=== PATIENT | male | born 1965 | race Caucasian/White ===

== ENCOUNTER 2020-11-04 09:22 | Inpatient (IN) ==
--- NOTE | 2020-11-04 09:37 | Emergency Department Note ---
Impression & Plan Multifocal pneumonia, Acute hypoxemic respiratory failure, COVID-19 ED Provider Note NAME: JOSHUA [id number] OSMIN AGE: 55 SEX: M : 1965 ARRIVES VIA: Ambulance INFORMANT: Patient, ED PROVIDER(S): Casimiro Ladd MD Chief Complaint: Shortness of breath HPI: Patient does present with worsening shortness of breath. Patient states that he has had symptoms since last Friday and recently tested positive this pa st Friday. The patient is febrile tachycardic and does have an increased respiratory rate. The patient has complained of a mild productive cough. Patient is a former smoker. Patient states the symptoms are worse with walking and the cough sometimes gets worse if he lays flat or bends over. The patient is a prisoner at [facility]. The patient is currently on a nonrebreather. She does not complain of any nausea but has had decreased p.o. intake. Patient is a full code. ROS: See HPI for pertinent positives and negatives. A total of 10 systems were reviewed and otherwise negative. Past medical history: See below Surgical history: See below Social history: See below Physical Exam: GENERAL: Mild distress, nonrebreather in place. EYE EXAM: Normal conjunctiva. PERRL, no anisocoria and EOM's grossly intact w/o pain. NECK: Supple, no nuchal rigidity, no adenopathy, non-tender. No signs of meningismus. LUNGS: Crackles throughout, tachypnea noted. HEART: Tachycardic and regular, no MRG. ABDOMEN: Abdomen soft, reducible umbilical hernia present, normo-active bowel sounds, no masses, no rebound or guarding. BACK: No CVA TTP. SKIN: No rashes and no bruising. UPPER EXTREMITIES: Upper extremities are grossly normal. LOWER EXTREMITIES: Grossly normal, no edema. No Homans' sign bilaterally. NEURO EXAM: A&O x3, cranial nerves II-XII grossly intact, normal speech, moves a ll 4 extremities on command w/o issue. Differential diagnoses: Reactive airway disease, pneumonia, pneumothorax, COPD, CHF, infections, cardiac ischemia, pulmonary embolism, musculoskeletal, gastroi ntestinal, as well as other pathologies. Course: Patient was seen and evaluated the bedside. Full history physical exam was performed. EKG: Indication: Shortness of breath Sinus tachycardia, rate of 109, normal intervals, normal axis, to inversion in lead III, no obvious ST changes, no previous EKG for comparison. Imaging Studies: Radiology results as stated below per my review in the radiologist's interpretation: SINGLE VIEW CHEST CLINICAL HISTORY: Sepsis. FINDINGS: An AP, portable, upright chest radiograph is obtained. No prior studies are available for comparison at the time of dictation. The heart is enlarged. Multifocal/diffuse airspace consolidation is seen throughout both l ungs. No large pleural effusion or pneumothorax is seen. The bony thorax is grossly intact. IMPRESSION: Diffuse/multifocal airspace consolidation is seen throughout both lungs. Differential considerations include pulmonary edema and/or multifocal pneumonia. Clinical correlation will be required and radiographic follow-up to resolution is recommended. ACT 112: Negative or not required by law. Electronically signed by: Juan Jose Maravilla M.D. 11/04/2020 10:45 AM Dictated: 11/04/20 1044 Transcribed: 11/04/20 1044 Cardiac monitoring: An order was placed for continuous cardiac monitoring. The monitor shows a rate of 104 with sinus tachycardia rhythm. MDM: Patient was seen due to concern for Covid status worsening shortness of breath. The patient therefore completed was kept on 15 L nonrebreather satting in the low 90s. Patient does have some mild tachypnea and crackles throughout. Patient does have a white count of 24 normal H&H and platelet count. Patient's troponin is not detectable. Patient does have multifocal airspace opacities seen on the patient's chest x-ray. Pro-Live was pending. The patient did receive dexamethasone antipyretics and fluids. Patient was transitioned to high flow given the concern for the patient's borderline hypoxia on 15 L. I did speak the on-call hospitalist and the patient was admitted to the medicine service by Dr. Flores. Additional IV fluids were ordered given slightly softer blood pressure. The patient did have improvement in heart rate respiratory rate and O2 saturation with a high flow nasal cannula. Antibiotics were ordered. Critical Care: I have personally spent 95 minutes of critical care time in direct management of this patient. This includes bedside care, interpretation of diagnostic studies, and testing, discussion with consultants, patient, and family members, and other require inpatient management activities. This 95 minutes is in excess of all separately billable procedures. Past Med/Surg History Medical History (Updated 11/04/20 @ 14:34 by Casimiro Ladd MD) Edema HLD (hyperlipidemia) HTN (hypertension) with goal to be determined Primary osteoarthritis, unspecified site Unspecified asthma Surgical History No pertinent past surgical history Social History Smoking Status: Former smoker Second Hand Exposure: No; Do You Dip or Chew Tobacco: No; Tobacco Cessation Education Requested by Patient: No Hx Alcohol Use: No Hx Substance Use: No Preferred Language: Lao Communication Ability: Effective Beliefs That Will Affect Care: None Current Living Situation: Other Current Living Situation Comment: care home Other Information That Helps Us Care for You: No Feels Safe at Home: Yes Assistive Devices: Oxygen - Continuous Allergies Allergies Allergy/AdvReac Type Severity Reaction Status Date / Time shellfish derived Allergy Unknown Unknown Unverified 11/04/20 09:56 wool Allergy Unknown Unknown Unverified 11/04/20 09:56 Home Meds Home Medications Medication Instructions Recorded Confirmed acetaminophen [Acetaminophen Extra 500 mg PO TID PRN 11/04/20 11/04/20 Strength] aspirin 81 mg PO QAM 11/04/20 11/04/20 atorvastatin 10 mg PO QAM 11/04/20 11/04/20 azithromycin 250 mg PO DAILY 11/04/20 11/04/20 celecoxib 200 mg PO QAM 11/04/20 11/04/20 furosemide [Lasix] 20 mg PO DAILY 11/04/20 11/04/20 guaifenesin [Mucosa] 400 mg PO TID PRN 11/04/20 11/04/20 levalbuterol tartrate [Xopenex HFA] 2 inh INHALATION Q6H PRN 11/04/20 11/04/20 methylprednisolone [Medrol (Sumit)] 4 mg PO UD 11/04/20 11/04/20 ondansetron 4 mg PO DAILY PRN 11/04/20 11/04/20 Results & Data (ED) Vital Signs Vital Signs - 24 hr 11/04/20 09:59 11/04/20 10:04 11/04/20 10:19 Temperature 39.3 C H Temperature Source Oral Pulse Rate 118 H 105 H Pulse Rate [Apical] Pulse Rate from SpO2 Sensor 105 H Respiratory Rate 48 H 30 H Respiratory Effort / Characteristics Labored Blood Pressure 135/96 157/95 H Blood Pressure Mean 109 113 Pulse Oximetry 92 92 90 Oxygen Delivery Method Non-rebreather Non-rebreather Non-rebreather Oxygen Flow Rate 15 15 15 Fraction of Inspired Oxygen Sepsis Recent Fever Within 48 Hours Yes Sepsis New/Unexplained Change in Mental Status No Sepsis Action Taken by Nursing Physician Notified 11/04/20 10:31 11/04/20 10:52 11/04/20 11:01 Temperature Temperature Source Pulse Rate 104 H 101 H Pulse Rate [Apical] 97 H Pulse Rate from SpO2 Sensor 104 H 100 H Respiratory Rate 31 H 24 21 Respiratory Effort / Characteristics Non-Labored Spontaneous Blood Pressure 122/70 111/67 Blood Pressure Mean 99 85 Pulse Oximetry 90 93 92 Oxygen Delivery Method High Flow Nasal Cannula Oxygen Flow Rate 15 40 Fraction of Inspired Oxygen 80 Sepsis Recent Fever Within 48 Hours Sepsis New/Unexplained Change in Mental Status Sepsis Action Taken by Nursing 11/04/20 11:02 11/04/20 11:30 Temperature Temperature Source Pulse Rate 98 H Pulse Rate [Apical] Pulse Rate from SpO2 Sensor 98 H 90 Respiratory Rate 37 H Respiratory Effort / Characteristics Blood Pressure 119/72 Blood Pressure Mean 90 Pulse Oximetry 92 94 Oxygen Delivery Method Oxygen Flow Rate Fraction of Inspired Oxygen Sepsis Recent Fever Within 48 Hours Sepsis New/Unexplained Change in Mental Status Sepsis Action Taken by [facility] Medications Current Medication List: was personally reviewed by me Laboratory Data Attestation: I reviewed the patient's lab results. Result diagrams: 11/05/20 08:00 11/05/20 08:00 Lab Results 11/04/20 11/04/20 11/04/20 Range/Units 09:53 09:53 09:53 WBC 24.01 H (4.8-10.8) K/uL RBC 5.23 (4.7-6.1) M/uL Hgb 16.5 (14.0-18.0) g/dL Hct 47.2 (42-52) % MCV 90.2 (80-100) fL MCH 31.5 (25-34) pg MCHC 35.0 (32-36) g/dL RDW Std Deviation 45.2 (36.4-46.3) fL RDW Coeff of Srikanth 13.6 (11.5-14.5) % Plt Count 250 (130-400) K/uL MPV 11.4 H (7.4-10.4) fL Immature Gran % (Auto) 0.8 % Neut % (Auto) 90.6 % Lymph % (Auto) 6.5 % [place] % (Auto) 2.1 % Eos % (Auto) 0.0 % Baso % (Auto) 0.0 % Neut # (Auto) 21.73 H (1.4-6.5) K/uL Lymph # (Auto) 1.57 (1.2-3.4) K/uL [place] # (Auto) 0.50 (0.11-0.59) K/uL Eos # (Auto) 0.00 (0-0.5) K/uL Baso # (Auto) 0.01 (0-0.2) K/uL Immature Gran # (Auto) 0.20 H (0.00-0.02) K/uL PT 12.8 H (9.0-12.0) Seconds INR 1.2 H (0.9-1.1) APTT 27.6 (21.0-31.0) Seconds PTT Ratio 1.0 D-Dimer (0-500) ug/L FEU Sodium 131 L (136-145) mmol/L Potassium 4.0 (3.5-5.1) mmol/L Chloride 94 L (98-107) mmol/L Carbon Dioxide 31 (21-32) mmol/L Anion Gap 6.0 (3-11) BUN 26 H (7-18) mg/dl Creatinine 0.99 (0.6-1.4) mg/dl Est Cr Clr Drug Dosing 125.0 ml/min Est GFR ( Amer) 99.0 Est GFR (Non-Af Amer) 85.4 BUN/Creatinine Ratio 25.8 H (10-20) Glucose 92 (70-99) mg/dl Lactate (0.4-2.0) mmol/L Calcium 8.8 (8.5-10.1) mg/dl Magnesium 2.3 (1.8-2.4) mg/dl Ferritin (8-388) ng/ml Total Bilirubin 1.9 H (0.2-1) mg/dl AST 44 H (15-37) U/L ALT 37 (12-78) U/L Alkaline Phosphatase 128 H (45-117) U/L Lactate Dehydrogenase (87-241) U/L Total Creatine Kinase (39-308) U/L Troponin I < 0.015 (0-0.045) ng/ml C-Reactive Protein (0-0.29) mg/dl Total Protein 8.3 H (6.4-8.2) gm/dl Albumin 2.9 L (3.4-5.0) gm/dl Globulin 5.4 H (2.5-4.0) gm/dl Albumin/Globulin Ratio 0.5 L (0.9-2) Procalcitonin (0-0.5) ng/ml 11/04/20 11/04/20 11/04/20 Range/Units 09:53 09:53 09:53 WBC (4.8-10.8) K/uL RBC (4.7-6.1) M/uL Hgb (14.0-18.0) g/dL Hct (42-52) % MCV (80-100) fL MCH (25-34) pg MCHC (32-36) g/dL RDW Std Deviation (36.4-46.3) fL RDW Coeff of Srikanth (11.5-14.5) % Plt Count (130-400) K/uL MPV (7.4-10.4) fL Immature Gran % (Auto) % Neut % (Auto) % Lymph % (Auto) % [place] % (Auto) % Eos % (Auto) % Baso % (Auto) % Neut # (Auto) (1.4-6.5) K/uL Lymph # (Auto) (1.2-3.4) K/uL [place] # (Auto) (0.11-0.59) K/uL Eos # (Auto) (0-0.5) K/uL Baso # (Auto) (0-0.2) K/uL Immature Gran # (Auto) (0.00-0.02) K/uL PT (9.0-12.0) Seconds INR (0.9-1.1) APTT (21.0-31.0) Seconds PTT Ratio D-Dimer 1900 H* (0-500) ug/L FEU Sodium (136-145) mmol/L Potassium (3.5-5.1) mmol/L Chloride (98-107) mmol/L Carbon Dioxide (21-32) mmol/L Anion Gap (3-11) BUN (7-18) mg/dl Creatinine (0.6-1.4) mg/dl Est Cr Clr Drug Dosing ml/min Est GFR ( Amer) Est GFR (Non-Af Amer) BUN/Creatinine Ratio (10-20) Glucose (70-99) mg/dl Lactate 2.1 H* (0.4-2.0) mmol/L Calcium (8.5-10.1) mg/dl Magnesium (1.8-2.4) mg/dl Ferritin (8-388) ng/ml Total Bilirubin (0.2-1) mg/dl AST (15-37) U/L ALT (12-78) U/L Alkaline Phosphatase (45-117) U/L Lactate Dehydrogenase (87-241) U/L Total Creatine Kinase (39-308) U/L Troponin I (0-0.045) ng/ml C-Reactive Protein (0-0.29) mg/dl Total Protein (6.4-8.2) gm/dl Albumin (3.4-5.0) gm/dl Globulin (2.5-4.0) gm/dl Albumin/Globulin Ratio (0.9-2) Procalcitonin 1.42 H (0-0.5) ng/ml 11/04/20 11/04/20 Range/Units 09:53 09:53 WBC (4.8-10.8) K/uL RBC (4.7-6.1) M/uL Hgb (14.0-18.0) g/dL Hct (42-52) % MCV (80-100) fL MCH (25-34) pg MCHC (32-36) g/dL RDW Std Deviation (36.4-46.3) fL RDW Coeff of Srikanth (11.5-14.5) % Plt Count (130-400) K/uL MPV (7.4-10.4) fL Immature Gran % (Auto) % Neut % (Auto) % Lymph % (Auto) % [place] % (Auto) % Eos % (Auto) % Baso % (Auto) % Neut # (Auto) (1.4-6.5) K/uL Lymph # (Auto) (1.2-3.4) K/uL [place] # (Auto) (0.11-0.59) K/uL Eos # (Auto) (0-0.5) K/uL Baso # (Auto) (0-0.2) K/uL Immature Gran # (Auto) (0.00-0.02) K/uL PT (9.0-12.0) Seconds INR (0.9-1.1) APTT (21.0-31.0) Seconds PTT Ratio D-Dimer (0-500) ug/L FEU Sodium (136-145) mmol/L Potassium (3.5-5.1) mmol/L Chloride (98-107) mmol/L Carbon Dioxide (21-32) mmol/L Anion Gap (3-11) BUN (7-18) mg/dl Creatinine (0.6-1.4) mg/dl Est Cr Clr Drug Dosing ml/min Est GFR ( Amer) Est GFR (Non-Af Amer) BUN/Creatinine Ratio (10-20) Glucose (70-99) mg/dl Lactate (0.4-2.0) mmol/L Calcium (8.5-10.1) mg/dl Magnesium (1.8-2.4) mg/dl Ferritin 1775.9 H (8-388) ng/ml Total Bilirubin (0.2-1) mg/dl AST (15-37) U/L ALT (12-78) U/L Alkaline Phosphatase (45-117) U/L Lactate Dehydrogenase 585 H (87-241) U/L Total Creatine Kinase 92 (39-308) U/L Troponin I (0-0.045) ng/ml C-Reactive Protein 15.80 H (0-0.29) mg/dl Total Protein (6.4-8.2) gm/dl Albumin (3.4-5.0) gm/dl Globulin (2.5-4.0) gm/dl Albumin/Globulin Ratio (0.9-2) Procalcitonin (0-0.5) ng/ml Administered Medications Acetaminophen (Acetaminophen 325 Mg Tab) 650 mg PO Q4H PRN PRN Reason: Pain or Fever Stop: 12/04/20 12:09 Last Admin: 11/05/20 01:49 Dose: 650 mg Documented by: [id number] Aspirin (Aspirin 81 Mg Ectab) 81 mg PO [facility] Stop: 12/05/20 08:59 Last Admin: 11/05/20 07:44 Dose: Not Given Documented by: [id number] Atorvastatin Calcium (Atorvastatin 10 Mg Tab) 10 mg PO [facility] Stop: 12/05/20 08:59 Last Admin: 11/05/20 07:44 Dose: Not Given Documented by: [id number] Enoxaparin Sodium (Enoxaparin 80 Mg/0.8 Ml Syr) 75 mg SQ Q12H [facility] Stop: 12/04/20 12:29 Last Admin: 11/05/20 01:51 Dose: 75 mg Documented by: [id number] Admin: 11/04/20 13:50 Dose: 75 mg Documented by: [id number] Azithromycin 250 mg/ Dextrose 252.5 mls @ 125 mls/hr IV Q24H [facility] Stop: 11/06/20 12:59 Last Infusion: 11/04/20 16:13 Dose: 0 mls/hr Documented by: [id number] Admin: 11/04/20 13:50 Dose: 125 mls/hr Documented by: [id number] Cefepime HCl 2,000 mg/ Syringe 20 mls @ 5 mls/min IV Q8H [facility]; Protocol Stop: 11/12/20 03:59 Last Admin: 11/05/20 03:40 Dose: 5 mls/min Documented by: [id number] Dexamethasone 6 mg/ Syringe 1.5 mls @ 1 mls/min IV [facility] Stop: 11/14/20 08:59 Last Admin: 11/05/20 07:49 Dose: 1 mls/min Documented by: [id number] Discontinued Medications Acetaminophen (Acetaminophen 500 Mg Tab) 1,000 mg PO NOW STA Stop: 11/04/20 09:51 Last Admin: 11/04/20 10:12 Dose: 1,000 mg Documented by: [id number] Dexamethasone (Dexamethasone Sod Inj 10 Mg/Ml Vial) 6 mg IV NOW ONE Stop: 11/04/20 09:51 Last Admin: 11/04/20 10:11 Dose: 6 mg Documented by: [id number] Sodium Chloride (Nss 1000ml) 1,000 mls @ 999 mls/hr IV .Q1H1M [facility] Stop: 11/04/20 11:00 Last Infusion: 11/04/20 11:52 Dose: 0 mls/hr Documented by: [id number] Admin: 12/19/20 10:12 Dose: 999 mls/hr Documented by: [id number] Cefepime HCl (Maxipime) 2,000 mg in 20 mls @ 5 mls/min IV NOW STA; Protocol Stop: 11/04/20 11:12 Last Admin: 11/04/20 11:52 Dose: 5 mls/min Documented by: [id number] Vancomycin HCl 2,750 mg/ (Sodium Chloride) 555 mls @ 200 mls/hr IV NOW ONE Stop: 11/04/20 14:16 Last Infusion: 11/04/20 16:13 Dose: 0 mls/hr Documented by: [id number] Admin: 11/04/20 11:52 Dose: 200 mls/hr Documented by: [id number] Sodium Chloride (Nss 1000ml) 500 mls @ 999 mls/hr IV .Q31M ONE Stop: 11/04/20 13:09 Last Infusion: 11/04/20 14:42 Dose: 0 mls/hr Documented by: [id number] Admin: 11/04/20 13:51 Dose: 999 mls/hr Documented by: [id number] Sodium Chloride (Nss) 500 mls @ 125 mls/hr IV .Q4H [facility] Stop: 11/05/20 06:59 Last Infusion: 11/05/20 07:43 Dose: 0 mls/hr Documented by: [id number] Admin: 11/05/20 03:40 Dose: 125 mls/hr Documented by: [id number] Ketorolac Tromethamine (Ketorolac 30 Mg/Ml Vial) 30 mg IV NOW STA Stop: 11/04/20 09:51 Last Admin: 11/04/20 10:12 Dose: 30 mg Documented by: [id number] Discharge Plan Visit Data Chief Complaint: Shortness of Breath/Dyspnea ED Provider: Casimiro Ladd Discharge Problem: Multifocal pneumonia, Acute hypoxemic respiratory failure, COVID-19 Patient Disposition: Admitted As Inpatient Discharge Instructions Interventions: ED Discharge Assessment Last Done: 11/04/20 12:45
[2020-11-04] MEDS ORDERED: KETOROLAC 30 MG/ML VIAL IV STA (09:50)
[2020-11-04] MEDS ORDERED: ACETAMINOPHEN 500 MG TAB PO STA (09:50)
[2020-11-04] MEDS ORDERED: DEXAMETHASONE SOD INJ 10 MG/ML VIAL IV ONE (09:50)
[2020-11-04] MEDS ORDERED: SODIUM CHLORIDE 0.9% 1000ML 1,000 ML IV SCH (10:00)
[2020-11-04 10:05] LABS: Hematocrit (blood only) 47.2 % (42-52); Hemoglobin 16.5 g/dL (14.0-18.0); Mean Corpuscular Hemoglobin 31.5 pg (25-34); Mean Corpuscular Volume 90.2 fL (80-100); Mean Platelet Volume 11.4 fL (7.4-10.4); Platelet Count 250 K/uL (130-400); RDW Coefficient of Variation 13.6 % (11.5-14.5); RDW Standard Deviation 45.2 fL (36.4-46.3); Red Blood Count 5.23 M/uL (4.7-6.1); White Blood Count 24.01 K/uL (4.8-10.8)
[2020-11-04 10:18] LABS: INR 1.2 (0.9-1.1); Partial Thromboplastin Time 27.6 Seconds (21.0-31.0); Prothrombin Time 12.8 Seconds (9.0-12.0)
[2020-11-04 10:24] LABS: Alanine Aminotransferase 37 U/L (12-78); Albumin Level 2.9 gm/dl (3.4-5.0); Aspartate Aminotransferase 44 U/L (15-37); BUN Creatinine Ratio 25.8 (10-20); Blood Urea Nitrogen 26 mg/dl (7-18); Calcium 8.8 mg/dl (8.5-10.1); Carbon Dioxide 31 mmol/L (21-32); Chloride 94 mmol/L (98-107); Est GFR (Non-African American) 85.4; Glucose 92 mg/dl (70-99); Magnesium 2.3 mg/dl (1.8-2.4); Sodium 131 mmol/L (136-145)
[2020-11-04 10:29] LABS: Albumin Globulin Ratio 0.5 (0.9-2); Alkaline Phosphatase 128 U/L (45-117); Bilirubin,Total 1.9 mg/dl (0.2-1); Globulin 5.4 gm/dl (2.5-4.0); Total Protein 8.3 gm/dl (6.4-8.2); Troponin I < 0.015 ng/ml (0-0.045)
--- NOTE | 2020-11-04 10:47 | XRay Report ---
SINGLE VIEW CHEST CLINICAL HISTORY: Sepsis. FINDINGS: An AP, portable, upright chest radiograph is obtained. No prior studies are available for c omparison at the time of dictation. The heart is enlarged. Multifocal/diffuse airspace consolidation is seen throughout both lungs. No large pleural effusion or pneumothorax is seen. The bony thorax is grossly intact. IMPRESSION: Diffuse/multifocal airspace consolidation is seen throughout both lungs. Differential con siderations include pulmonary edema and/or multifocal pneumonia. Clinical correlation will be require d and radiographic follow-up to resolution is recommended. ACT 112: Negative or not required by law. Electronically signed by: Juan Jose Maravilla M.D. 11/04/2020 10:45 AM
[2020-11-04 10:55] LABS: Appearance Urine Clear (Clear); Bacteria Urine Automated Negative (Negative); Bilirubin Urine Negative (Negative); Blood Urine Trace (Negative); Color Urine Dark Yellow; Epithelial Cell Urine Auto >30 /lpf (0-5); Glucose Urine UA Negative (Negative); Ketones Urine Negative (Negative); Leukocyte Esterase Urine Negative (Negative); Nitrite Urine Negative (Negative); Protein Urine 1+ (Negative); RBC Urine Automated 0-4 /hpf (0-4); Specific Gravity Urine 1.028 (1.000-1.030); Urobilinogen Urine Negative (Negative)
[2020-11-04] MEDS ORDERED: CEFEPIME 2,000 MG/20 ML VIAL IV STA (11:09)
[2020-11-04] MEDS ORDERED: VANCOMYCIN CONSULT ACTIVE PRN (11:09)
--- NOTE | 2020-11-04 11:13 | History & Physical Report ---
Date of Service November 04, 2020 Assessment & Plan (1) Sepsis: Source - COVID-19 + suspected bacterial multifocal pneumonia. Lactate 2.1, repeat pending. NSS 1L bolus given in ER. Given hemodynamic stability will defer further IV fluids at this time. Cover for bacterial PNA with vancomycin, cefepime and azithromycin (finish 5 day course started as outpatient). Follow up blood and sputum cultures. (2) Acute respiratory failure with hypoxia: Aim O2 sats > 90%. CPAP HS (suspect underlying sleep apnea). (3) Multifocal pneumonia: MRSA nasal swab pending. Can discontinue vancomycin if this is negative. Continue cefepime 2g IV Q8H and azithromycin. (4) COVID-19: Continue dexamethasone 6mg IV for 10 day course (previously on medrol dosepak at the [facility]). Elevated LFTs therefore remdesivir deferred. 9 day course therefore convalescent plasma not ordered. (5) Primary osteoarthritis, unspecified site: Continue celecoxib 200mg PO QAM (6) Unspecified asthma: Unclear diagnosis of this. Patient reports no previous PFTs. No wheezing on exam to suggest asthma exacerbation. (7) HTN (hypertension) with goal to be determined: Hold Lasix given current dehydrated/hypovolemic state. Monitor BP as routine (8) HLD (hyperlipidemia): Continue atorvastatin 10 mg p.o. every morning (9) DVT prophylaxis: Lovenox 0.5 mg/kg BID (due to increased BMI and COVID-19 diagnosis) Admission and Anticipated Discharge Date Admission Date: 11/04/2020 History of Present Illness Chief Complaint: Shortness of breath, cough, fatigue, diarrhea, known COVID-19 Primary Care Provider: AWID Kim Mars Chawla is a 55 year old male from [facility] with known COVID-19 pneumonia who presents to the ER with a 9-day history of shortness of breath, chills, nasal congestion, cough, fatigue, myalgias, diarrhea. He was tested for COVID-19 on on 10/30, subsequently positive. Since then has been having increased oxygen requirements. [facility] and was started on a Medrol Dosepak and azithromycin (due to finish 11/05) at that time, although records from the [facility] are incomplete (last filled in 11/02). He denies any fever, loss of taste or smell, headache, sore throat, nausea/vomiting, chest or abdominal pain. In the ER chest x-ray concerning for diffuse/multifocal airspace consolidation s een throughout both lungs. He was significantly hypoxic requiring 80% FiO2 to maintain his O2 sats around 90%. He was referred to medicine for admission and ongoing management for Covid 19, multifocal pneumonia, hypoxia. Allergies Allergy/AdvReac Type Severity Reaction Status Date / Time shellfish derived Allergy Unknown Unknown Unverified 11/04/20 09:56 wool Allergy Unknown Unknown Unverified 11/04/20 09:56 Home Medications Medication Instructions Recorded Confirmed Type acetaminophen [Acetaminophen Extra 500 mg PO TID PRN 11/04/20 11/04/20 History Strength] aspirin 81 mg PO QAM 11/04/20 11/04/20 History atorvastatin 10 mg PO QAM 11/04/20 11/04/20 History azithromycin 250 mg PO DAILY 11/04/20 11/04/20 History celecoxib 200 mg PO QAM 11/04/20 11/04/20 History furosemide [Lasix] 20 mg PO DAILY 11/04/20 11/04/20 History guaifenesin [Mucosa] 400 mg PO TID PRN 11/04/20 11/04/20 History levalbuterol tartrate [Xopenex HFA] 2 inh INHALATION Q6H PRN 11/04/20 11/04/20 History methylprednisolone [Medrol (Sumit)] 4 mg PO UD 11/04/20 11/04/20 History ondansetron 4 mg PO DAILY PRN 11/04/20 11/04/20 History Past Med/Surg History Medical History (Updated 11/05/20 @ 11:13 by Juan Mosquera MD) Edema HLD (hyperlipidemia) HTN (hypertension) with goal to be determined Morbid obesity due to excess calories Primary osteoarthritis, unspecified site Unspecified asthma Surgical History No pertinent past surgical history Social History Smoking Status: Former smoker Second Hand Exposure: No; Do You Dip or Chew Tobacco: No; Tobacco Cessation Education Requested by Patient: No Hx Alcohol Use: No Hx Substance Use: No Preferred Language: Danish Communication Ability: Effective Beliefs That Will Affect Care: None Current Living Situation: Other Current Living Situation Comment: [facility] Other Information That Helps Us Care for You: No Feels Safe at Home: Yes Assistive Devices: Oxygen - Continuous Review of Systems Review of Systems: All systems reviewed & are unremarkable except as noted in HPI & below Physical Exam Constitutional: well developed, well nourished, + acute distress (Respiratory) and + morbidly obese Eyes: PERRL, conjunctivae normal, anicteric sclerae ENMT: Ears: no external ear abnormality Nose: no external nose abnormality Mouth: + dry oral mucous membranes Neck: trachea midline, no thyromegaly Respiratory: + respiratory distress, + labored breathing, + retractions, + uses accessory muscles, + cough (Occasional dry) and + tachypneic Auscultation: + diminished lung sounds (Poor air entry to bases bilaterally) Cardiovascular: Rate/Rhythm: regular rhythm and + tachycardic Heart Sounds: no murmur Extremities: normal capillary refill; no calf tenderness and no pedal edema Gastrointestinal (Abdomen): normal bowel sounds, soft, nontender, no hepatosplenomegaly Musculoskeletal: no cyanosis or clubbing, extremities motor strength 5/5 Skin: no rashes, warm and dry Neurologic: moves all extremities and awake; no focal motor deficits and not confused Psychiatric: A+Ox3, euthymic affect Results & Data Results & Data ([facility]) Vital Signs (Past 12 Hours) Vital Signs Temp Pulse Pulse Resp BP Pulse Ox 11/04/20 11:01 101 H 21 111/67 92 11/04/20 10:52 97 H 24 93 11/04/20 10:31 104 H 31 H 122/70 90 11/04/20 10:19 105 H 30 H 157/95 H 90 11/04/20 10:04 92 11/04/20 09:59 39.3 C H 118 H 48 H 135/96 92 11/04/20 09:35 111 H 55 H 135/96 91 Diagnostic Findings SINGLE VIEW CHEST IMPRESSION: Diffuse/multifocal airspace consolidation is seen throughout both lungs. Differential considerations include pulmonary edema and/or multifocal p neumonia. Clinical correlation will be required and radiographic follow-up to resolution is recommended. Medications Administered ER medications given: Toradol 30 mg IV Dexamethasone 6 mg IV Acetaminophen 1 g p.o. NSS 1L bolus ECG Indication: tachycardia Rate (beats per minute): 109 Rhythm: sinus tachycardia Findings: no acute ischemic change Change: no significant change Code Status & VTE Plan Code Status Full - discussed with the patient VTE Prophylaxis Plan VTE Prophylaxis will be ordered: Yes PG Care Time/CCT Total # of Minutes Spent Total Time Spent with Patient: Total time spent is greater than 50% in coordination of care (as documented) at patient's floor/unit and/or counseling patient: Coding Level of Care Code 56983 Initial Inpt Care Lvl 3 Diagnoses Sepsis A41.9 Acute respiratory failure with hypoxia J96.01 Multifocal pneumonia J18.9 COVID-19 U07.1 Primary osteoarthritis, unspecified site M19.91 Unspecified asthma J45.909 HTN (hypertension) with goal to be determined I10 HLD (hyperlipidemia) E78.5 DVT prophylaxis Z29.9
[2020-11-04 11:28] LABS: Mucus Urine Present (None Prsent)
[2020-11-04] MEDS ORDERED: VANCOMYCIN HCL 2,750 MG in SODIUM CHLORIDE 0.9% 500 ML IV ONE (11:30)
[2020-11-04 11:55] LABS: Basophils # (auto) 0.01 K/uL (0-0.2); Immature Granulocytes % (auto) 0.8 %; Lymphocytes # (auto) 1.57 K/uL (1.2-3.4); Lymphocytes % (auto) 6.5 %; Monocytes % (auto) 2.1 %; Neutrophils # (auto) 21.73 K/uL (1.4-6.5); Neutrophils % (auto) 90.6 %
[2020-11-04 11:59] LABS: D Dimer 1900 ug/L FEU (0-500)
[2020-11-04] MEDS ORDERED: ONDANSETRON INJ 2 MG/ML 2 ML VIAL IV PRN (12:10)
[2020-11-04] MEDS ORDERED: ALUMINUM/MAGNESIUM SUSP 30 ML UDC PO PRN (12:10)
[2020-11-04] MEDS ORDERED: POLYETHYLENE (MIRALAX) 17 GM PACK PO PRN (12:10)
[2020-11-04] MEDS ORDERED: ACETAMINOPHEN 325 MG TAB PO PRN (12:10)
[2020-11-04] MEDS ORDERED: LEVALBUTEROL TARTRATE 15 GM HFA.AER.AD INH PRN (12:10)
[2020-11-04] MEDS ORDERED: SODIUM CHLORIDE 0.9% 1000ML 500 ML IV ONE (12:39)
--- NOTE | 2020-11-04 12:50 | Pharmacy Report ---
Pharmacy Abx Initial Consult - Date of Service November 04, 2020 - Pharmacy Dosing Scope Date of Consult: 11/04/20 Consultation requested by: Dr. Flores Pharmacy is consulted to initiate Vancomycin IV dosing therapy, order appropriate labs and adjust drug dose/frequency. - Subjective The patient is a 55 year old M admitted on 11/04/20 11:42. - Objective Height: 5 ft 10 in Weight: 152.6 kg Vital Signs (Past 12hrs): Vital Signs Temp Pulse Pulse Resp BP BP Pulse Ox 11/04/20 12:04 83 16 96/68 L 91 11/04/20 11:01 101 H 21 111/67 92 11/04/20 10:52 97 H 24 93 11/04/20 10:31 104 H 31 H 122/70 90 11/04/20 10:19 105 H 30 H 157/95 H 90 11/04/20 10:04 92 11/04/20 09:59 39.3 C H 118 H 48 H 135/96 92 11/04/20 09:35 111 H 55 H 135/96 91 Lab Results (24hrs): Laboratory Tests (24 Hours) 11/04/20 11/04/20 11/04/20 09:53 09:53 09:53 WBC 24.01 H Neut # (Auto) 21.73 H Creatinine 0.99 Est Cr Clr Drug Dosing 125.0 Procalcitonin 1.42 H Micro Results: 11/04/20 10:21 Aerobic Blood Culture - Pending Blood Anaerobic Blood Culture - Pending 11/04/20 09:53 Aerobic Blood Culture - Pending Blood Anaerobic Blood Culture - Pending - Assessment & Plan Assessment 55 year old M from skilled nursing, admitted for hypoxia. Patient suspected to have Pneumonia. Vancomycin started in the ED. Plan Vancomycin IV * Estimated PK Parameters: Vd 0.7 L/kg, Shaheen 0.051 hr-1, t1/2 13.6 hr * Loading dose: 2750 mg (18 mg/kg) IV x 1 dose given in ED around 1200 today. * Maintenance dose: 1500 mg IV (9.8 mg/kg) every 12 hours * Goal trough level for Pneumonia: 15 to 20 mcg/mL * Trough level ordered for 11/05/20 @ 2330 * A less than traditional dose has been selected due to likelihood of drug accumulation in obese patient. Pharmacy will continue to follow and will adjust dose/frequency as necessary. Thank you.
[2020-11-04 12:58] LABS: C Reactive Protein 15.8 mg/dl (0-0.29); Ferritin 1775.9 ng/ml (8-388)
[2020-11-04] MEDS: ENOXAPARIN 80 MG/0.8 ML SYR SQ SCH (13:50)
[2020-11-04] MEDS: AZITHROMYCIN 250 MG in DEXTROSE 5% 250 ML IV SCH (13:50)
[2020-11-05] MEDS ORDERED: VANCOMYCIN HCL 1,500 MG in SODIUM CHLORIDE 0.9% 500 ML IV SCH
[2020-11-05] MEDS: ENOXAPARIN 80 MG/0.8 ML SYR SQ SCH ×2 (01:51→11:36)
[2020-11-05] MEDS ORDERED: SODIUM CHLORIDE 0.9% 500 ML IV SCH (03:00)
[2020-11-05] MEDS ORDERED: CEFEPIME CONSULT ACTIVE PRN (03:02)
[2020-11-05] MEDS: CEFEPIME 2,000 MG in SYRINGE 0 ML IV SCH ×3 (03:40→20:50)
[2020-11-05] MEDS ORDERED: SUCCINYLCHOLINE CHLORIDE 20 MG/ML 10 ML VIAL IV ONE (07:25)
[2020-11-05] MEDS: ATORVASTATIN 10 MG TAB PO SCH (07:44)
[2020-11-05] MEDS: ASPIRIN 81 MG ECTAB PO SCH (07:44)
[2020-11-05] MEDS: dexAMETHasone 6 MG in SYRINGE 0 ML IV SCH (07:49)
--- NOTE | 2020-11-05 09:13 | Hospitalist Progress Note ---
Date of Service November 05, 2020 Assessment & Plan (1) Acute respiratory failure with hypoxia: patient unable to maintain saturations > 88% on 60L and 100% FiO2 his saturations were better on CPAP overnight, he says he is willing to shave face and try for better seal discussed that he will likely require intubation based on FiO2 requirements, work of breathing, low saturations he is agreeable to ventilation when needed will ask Dr. Mosquera to evaluate patient tried laying on his side and prone, lasted about 2 minutes and could not tolerate (2) Sepsis: Source - COVID-19 plus possible bacterial multifocal pneumonia. Lactate 2.1, repeat pending. NSS 1L bolus given in ER. Given hemodynamic stability will defer further IV fluids at this time. Cover for bacterial PNA with vancomycin, cefepime and azithromycin follow blood cultures vitals stable today, main issue is hypoxemia (3) Multifocal pneumonia: MRSA nasal swab pending. Can discontinue vancomycin if this is negative. Continue cefepime 2g IV Q8H and azithromycin main issue is COVID pneumonia, on dexamethasone, high flow oxygen likely will need intubated (4) COVID-19: Continue dexamethasone 6mg IV for 10 day course (previously on medrol dosepak at the long-term). Elevated LFTs therefore remdesivir deferred. 9 day course therefore convalescent plasma not ordered. severe disease, this is day 10 of his illness, multifocal changes on CXR (5) Primary osteoarthritis, unspecified site: Continue celecoxib 200mg PO QAM (6) Unspecified asthma: Unclear diagnosis of this. Patient reports no previous PFTs. No wheezing on exam to suggest asthma exacerbation. (7) HTN (hypertension) with goal to be determined: Hold Lasix given current dehydrated/hypovolemic state. Monitor BP as routine (8) HLD (hyperlipidemia): Continue atorvastatin 10 mg p.o. every morning (9) DVT prophylaxis: Lovenox 0.5 mg/kg BID (due to increased weight and COVID-19 diagnosis) Admission and Anticipated Discharge Date Admission Date: November 04, 2020 Subjective patient said he was breathing okay on the CPAP all night placed on High Flow this morning, 60L and 100% FiO2 and saturations 85-88%, RR 30's he says he doesn't feel that bad, willing to try laying on his side and prone to improve oxygenation discussed that he will likely need intubated but we will try some measures to prevent that he says he would prefer to not be intubated but understands it may be necessary reviewed chart, he has been ill at the long-term for about 10 days labs this morning still pending, will follow up results Review of Systems Review of Systems: All systems reviewed & are unremarkable except as noted in Subjective Constitutional: no fever, no chills, no sweats, no fatigue and no weakness Respiratory: + dyspnea Cardiovascular: no chest pain and no edema Gastrointestinal: no abdominal pain, no nausea and no vomiting Physical Exam Constitutional: + ill appearing and + obese Respiratory: + labored breathing, + uses accessory muscles, + cough and + tachypneic Auscultation: lungs clear to auscultation bilaterally Cardiovascular: RRR, no murmur, no edema Gastrointestinal (Abdomen): normal bowel sounds, soft, nontender, no hepatospl enomegaly Musculoskeletal: no cyanosis or clubbing, extremities motor strength 5/5 Skin: no rashes, warm and dry Neurologic: patellar DTR's 2+ bilat, sensation intact and PERRL, EOMI, accommodation nl, no face palsy, no dysarthria Psychiatric: A+Ox3, euthymic affect Lymphatic: no cervical or axillary lymphadenopathy Results & Data Results & Data ([facility]) Vital Signs (Past 12 Hours) Vital Signs Temp Pulse Pulse Resp BP Pulse Ox 11/05/20 07:59 37.2 C 72 18 135/77 94 11/05/20 07:52 91 H 30 H 92 11/05/20 04:22 37.8 C H 82 22 133/75 94 11/05/20 02:47 93 H 38 H 94 11/04/20 23:58 38.2 C H 90 24 133/84 94 11/04/20 22:58 74 26 H 91 Laboratory Results Laboratory Results - last 24 hr 11/04/20 11/04/20 11/04/20 09:53 09:53 09:53 WBC 24.01 H RBC 5.23 Hgb 16.5 Hct 47.2 MCV 90.2 MCH 31.5 MCHC 35.0 RDW Std Deviation 45.2 RDW Coeff of Srikanth 13.6 Plt Count 250 MPV 11.4 H Immature Gran % (Auto) 0.8 Neut % (Auto) 90.6 Lymph % (Auto) 6.5 Swain % (Auto) 2.1 Eos % (Auto) 0.0 Baso % (Auto) 0.0 Neut # (Auto) 21.73 H Lymph # (Auto) 1.57 Swain # (Auto) 0.50 Eos # (Auto) 0.00 Baso # (Auto) 0.01 Immature Gran # (Auto) 0.20 H PT 12.8 H INR 1.2 H APTT 27.6 PTT Ratio 1.0 D-Dimer Sodium 131 L Potassium 4.0 Chloride 94 L Carbon Dioxide 31 Anion Gap 6.0 BUN 26 H Creatinine 0.99 Est Cr Clr Drug Dosing 125.0 Est GFR ( Amer) 99.0 Est GFR (Non-Af Amer) 85.4 BUN/Creatinine Ratio 25.8 H Glucose 92 Lactate Calcium 8.8 Magnesium 2.3 Ferritin Total Bilirubin 1.9 H AST 44 H ALT 37 Alkaline Phosphatase 128 H Lactate Dehydrogenase Total Creatine Kinase Troponin I < 0.015 C-Reactive Protein Total Protein 8.3 H Albumin 2.9 L Globulin 5.4 H Albumin/Globulin Ratio 0.5 L Procalcitonin Urine Color Urine Appearance Urine pH Ur Specific [place] Urine Protein Urine Glucose (UA) Urine Ketones Urine Blood Urine Nitrite Urine Bilirubin Urine Urobilinogen Ur Leukocyte Esterase Urine WBC (Auto) Urine RBC (Auto) U Hyaline Cast (Auto) U Epithel Cells (Auto) Urine Bacteria (Auto) Ur Renal Epithelial Cell Granular Casts Urine Mucus Nasal Screen MRSA (PCR) 11/04/20 11/04/20 11/04/20 09:53 09:53 09:53 WBC RBC Hgb Hct MCV MCH MCHC RDW Std Deviation RDW Coeff of Srikanth Plt Count MPV Immature Gran % (Auto) Neut % (Auto) Lymph % (Auto) Sw[place] % (Auto) Eos % (Auto) Baso % (Auto) Neut # (Auto) Lymph # (Auto) Swain # (Auto) Eos # (Auto) Baso # (Auto) Immature Gran # (Auto) PT INR APTT PTT Ratio D-Dimer 1900 H* Sodium Potassium Chloride Carbon Dioxide Anion Gap BUN Creatinine Est Cr Clr Drug Dosing Est GFR ( Amer) Est GFR (Non-Af Amer) BUN/Creatinine Ratio Glucose Lactate 2.1 H* Calcium Magnesium Ferritin Total Bilirubin AST ALT Alkaline Phosphatase Lactate Dehydrogenase Total Creatine Kinase Troponin I C-Reactive Protein Total Protein Albumin Globulin Albumin/Globulin Ratio Procalcitonin 1.42 H Urine Color Urine Appearance Urine pH Ur Specific [place] Urine Protein Urine Glucose (UA) Urine Ketones Urine Blood Urine Nitrite Urine Bilirubin Urine Urobilinogen Ur Leukocyte Esterase Urine WBC (Auto) Urine RBC (Auto) U Hyaline Cast (Auto) U Epithel Cells (Auto) Urine Bacteria (Auto) Ur Renal Epithelial Cell Granular Casts Urine Mucus Nasal Screen MRSA (PCR) 11/04/20 11/04/20 11/04/20 09:53 09:53 12:00 WBC RBC Hgb Hct MCV MCH MCHC RDW Std Deviation RDW Coeff of Srikanth Plt Count MPV Immature Gran % (Auto) Neut % (Auto) Lymph % (Auto) Swain % (Auto) Eos % (Auto) Baso % (Auto) Neut # (Auto) Lymph # (Auto) Swain # (Auto) Eos # (Auto) Baso # (Auto) Immature Gran # (Auto) PT INR APTT PTT Ratio D-Dimer Sodium Potassium Chloride Carbon Dioxide Anion Gap BUN Creatinine Est Cr Clr Drug Dosing Est GFR ( Amer) Est GFR (Non-Af Amer) BUN/Creatinine Ratio Glucose Lactate Calcium Magnesium Ferritin 1775.9 H Total Bilirubin AST ALT Alkaline Phosphatase Lactate Dehydrogenase 585 H Total Creatine Kinase 92 Troponin I C-Reactive Protein 15.80 H Total Protein Albumin Globulin Albumin/Globulin Ratio Procalcitonin Urine Color Urine Appearance Urine pH Ur Specific [place] Urine Protein Urine Glucose (UA) Urine Ketones Urine Blood Urine Nitrite Urine Bilirubin Urine Urobilinogen Ur Leukocyte Esterase Urine WBC (Auto) Urine RBC (Auto) U Hyaline Cast (Auto) U Epithel Cells (Auto) Urine Bacteria (Auto) Ur Renal Epithelial Cell Granular Casts Urine Mucus Nasal Screen MRSA (PCR) Negative 11/04/20 11/04/20 11/05/20 12:08 Unknown 08:00 WBC Pending RBC Pending Hgb Pending Hct Pending MCV Pending MCH Pending MCHC Pending RDW Std Deviation RDW Coeff of Srikanth Plt Count Pending MPV Immature Gran % (Auto) Neut % (Auto) Lymph % (Auto) [place] % (Auto) Eos % (Auto) Baso % (Auto) Neut # (Auto) Lymph # (Auto) [place] # (Auto) Eos # (Auto) Baso # (Auto) Immature Gran # (Auto) PT INR APTT PTT Ratio D-Dimer Sodium Potassium Chloride Carbon Dioxide Anion Gap BUN Creatinine Est Cr Clr Drug Dosing Est GFR ( Amer) Est GFR (Non-Af Amer) BUN/Creatinine Ratio Glucose Lactate 2.1 H* Calcium Magnesium Ferritin Total Bilirubin AST ALT Alkaline Phosphatase Lactate Dehydrogenase Total Creatine Kinase Troponin I C-Reactive Protein Total Protein Albumin Globulin Albumin/Globulin Ratio Procalcitonin Urine Color Dark Yellow Urine Appearance Clear Urine pH 6.0 Ur Specific [place] 1.028 Urine Protein 1+ H Urine Glucose (UA) Negative Urine Ketones Negative Urine Blood Trace H Urine Nitrite Negative Urine Bilirubin Negative Urine Urobilinogen Negative Ur Leukocyte Esterase Negative Urine WBC (Auto) 1-5 Urine RBC (Auto) 0-4 U Hyaline Cast (Auto) 1-5 U Epithel Cells (Auto) >30 H Urine Bacteria (Auto) Negative Ur Renal Epithelial Cell Not Reportable Granular Casts 1-5 H Urine Mucus Present A Nasal Screen MRSA (PCR) 11/05/20 08:00 WBC RBC Hgb Hct MCV MCH MCHC RDW Std Deviation RDW Coeff of Srikanth Plt Count MPV Immature Gran % (Auto) Neut % (Auto) Lymph % (Auto) [place] % (Auto) Eos % (Auto) Baso % (Auto) Neut # (Auto) Lymph # (Auto) [place] # (Auto) Eos # (Auto) Baso # (Auto) Immature Gran # (Auto) PT INR APTT PTT Ratio D-Dimer Sodium Pending Potassium Pending Chloride Pending Carbon Dioxide Pending Anion Gap Pending BUN Pending Creatinine Pending Est Cr Clr Drug Dosing Pending Est GFR ( Amer) Pending Est GFR (Non-Af Amer) Pending BUN/Creatinine Ratio Pending Glucose Pending Lactate Calcium Pending Magnesium Ferritin Total Bilirubin Pending AST Pending ALT Pending Alkaline Phosphatase Pending Lactate Dehydrogenase Total Creatine Kinase Troponin I C-Reactive Protein Total Protein Pending Albumin Pending Globulin Pending Albumin/Globulin Ratio Pending Procalcitonin Urine Color Urine Appearance Urine pH Ur Specific [place] Urine Protein Urine Glucose (UA) Urine Ketones Urine Blood Urine Nitrite Urine Bilirubin Urine Urobilinogen Ur Leukocyte Esterase Urine WBC (Auto) Urine RBC (Auto) U Hyaline Cast (Auto) U Epithel Cells (Auto) Urine Bacteria (Auto) Ur Renal Epithelial Cell Granular Casts Urine Mucus Nasal Screen MRSA (PCR) Medications Administered Current Inpatient Medications Acetaminophen (Acetaminophen 325 Mg Tab) 650 mg PO Q4H PRN PRN Reason: Pain or Fever Stop: 01/18/21 12:09 Last Admin: 11/05/20 01:49 Dose: 650 mg Documented by: Al Hydrox/Mg Hydrox/Simethicone (Aluminum/Magnesium Susp 30 Ml Udc) 15 ml PO Q4H PRN PRN Reason: Dyspepsia Stop: 12/04/20 12:09 Aspirin (Aspirin 81 Mg Ectab) 81 mg PO [facility] Stop: 12/05/20 08:59 Last Admin: 11/05/20 07:44 Dose: Not Given Documented by: Atorvastatin Calcium (Atorvastatin 10 Mg Tab) 10 mg PO [facility] Stop: 12/05/20 08:59 Last Admin: 11/05/20 07:44 Dose: Not Given Documented by: Enoxaparin Sodium (Enoxaparin 80 Mg/0.8 Ml Syr) 75 mg SQ Q12H [facility] Stop: 12/04/20 12:29 Last Admin: 11/05/20 01:51 Dose: 75 mg Documented by: Azithromycin 250 mg/ Dextrose 252.5 mls @ 125 mls/hr IV Q24H [facility] Stop: 11/06/20 12:59 Last Infusion: 11/04/20 16:13 Dose: Infused Documented by: Cefepime HCl 2,000 mg/ Syringe 20 mls @ 5 mls/min IV Q8H [facility]; Protocol Stop: 11/12/20 03:59 Last Admin: 11/05/20 03:40 Dose: 5 mls/min Documented by: Dexamethasone 6 mg/ Syringe 1.5 mls @ 1 mls/min IV [facility] Stop: 11/14/20 08:59 Last Admin: 11/05/20 07:49 Dose: 1 mls/min Documented by: Levalbuterol HCl (Levalbuterol Tartrate 15 Gm Hfa.Aer.Ad) 2 puffs INH Q6H PRN PRN Reason: Shortness Of Breath Stop: 12/04/20 12:09 Miscellaneous Information (Cefepime Consult Active) 1 ea N/A UD PRN PRN Reason: Consult Stop: 12/05/20 03:01 Ondansetron HCl (Ondansetron Inj 2 Mg/Ml 2 Ml Vial) 4 mg IV Q6H PRN PRN Reason: Nausea Stop: 12/04/20 12:09 Polyethylene Glycol (Polyethylene (Miralax) 17 Gm Pack) 17 gm PO DAILY PRN PRN Reason: Constipation Stop: 12/04/20 12:09 PG Care Time/CCT Total # of Minutes Spent Total Time Spent with Patient: Total time spent is greater than 50% in coordination of care (as documented) at patient's floor/unit and/or counseling patient: Coding Level of Care Code 67928 Subseq Hosp Care Lvl 3 Diagnoses Acute respiratory failure with hypoxia J96.01 Sepsis A41.9 Multifocal pneumonia J18.9 COVID-19 U07.1 Primary osteoarthritis, unspecified site M19.91 Unspecified asthma J45.909 HTN (hypertension) with goal to be determined I10 HLD (hyperlipidemia) E78.5 DVT prophylaxis Z29.9
[2020-11-05 09:18] LABS: BUN Creatinine Ratio 32.3 (10-20); Calcium 8.6 mg/dl (8.5-10.1); Creatinine Clr Calc Pharmacy 140.9 ml/min; Est GFR (African American) 113.7; Est GFR (Non-African American) 98.1
[2020-11-05 09:32] LABS: Basophils # (auto) 0.04 K/uL (0-0.2); Basophils % (auto) 0.2 %; Eosinophils # (auto) 0.01 K/uL (0-0.5); Hematocrit (blood only) 49.7 % (42-52); Hemoglobin 17.2 g/dL (14.0-18.0); Immature Granulocytes # (auto) 0.29 K/uL (0.00-0.02); Immature Granulocytes % (auto) 1.2 %; Lymphocytes # (auto) 1.25 K/uL (1.2-3.4); Mean Corpuscular Hemoglobin 31.6 pg (25-34); Mean Corpuscular Hgb Conc 34.6 g/dL (32-36); Mean Corpuscular Volume 91.4 fL (80-100); Mean Platelet Volume 12.2 fL (7.4-10.4); Monocytes # (auto) 0.73 K/uL (0.11-0.59); Monocytes % (auto) 2.9 %; Neutrophils # (auto) 22.88 K/uL (1.4-6.5); Neutrophils % (auto) 90.7 %; Platelet Count 273 K/uL (130-400); RDW Coefficient of Variation 14.1 % (11.5-14.5); RDW Standard Deviation 47.2 fL (36.4-46.3); Red Blood Count 5.44 M/uL (4.7-6.1)
[2020-11-05 09:52] LABS: Albumin Globulin Ratio 0.5 (0.9-2); Albumin Level 2.6 gm/dl (3.4-5.0); Bilirubin,Total 1.5 mg/dl (0.2-1); Globulin 5.3 gm/dl (2.5-4.0); Total Protein 7.9 gm/dl (6.4-8.2)
[2020-11-05] MEDS ORDERED: FUROSEMIDE 20 MG in SYRINGE 0 ML IV ONE (11:11)
[2020-11-05 11:12] LABS: Potassium 4.8 mmol/L (3.5-5.1)
--- NOTE | 2020-11-05 11:18 | Critical Care Consultation ---
Date of Consultation November 05, 2020 Assessment & Plan (1) Acute hypoxemic respiratory failure: Neurologic: No issues currently Delirium precautions Pulmonary: Ventilator/BiPAP settings: Continue CPAP. Very likely will be intubated in the near future. He is reluctant to get intubated at this time. I would prefer not to wait until the last minute to intubate the patient and intubate in a more controlled setting, but the patient is refusing at this time. Continue antibiotics for possible superimposed bacterial pneumonia. Continue Decadron. Not a candidate for remdesivir given that he is over 4 days out of the initial presentation of Covid. Cardiovascular: Checking proBNP and repeating troponins. I am giving him 20 mg of IV Lasix. We will try to keep him that -500 mL. Gastrointestinal: We will start Pepcid 20 mg twice daily. Renal: No issues currently. Lasix as above. CK within normal limits. Infectious disease: Procalcitonin elevated. Continue broad-spectrum antibiotics. Cultures pending. Sputum Gram stain negative. Hematologic: Elevated white count likely from steroids and possible bacterial infection. Hemoglobin stable. Endocrine: Monitoring glucose closely while on steroids. No issues. VTE prophylaxis: Full dose anticoagulation with Lovenox CODE STATUS: Full code Family at bedside: None available at bedside given COVID-19 pandemic Disposition: Remain in the ICU. Likely to be intubated in the near future. I have personally spent 53 minutes of critical care time in the direct management of this patient. This is a life/limb threatening event. This includes time spent evaluating patient, direct bedside care, chart review, placing orders , interpretation of diagnostic studies, discussion with consultants, patient, and family members, as well as other required patient management activities. This time is exclusive of all separately billable procedures, and teaching time and separate from and in addition to any other critical care service time. Thank you for allowing us to participate in the care of this patient. (2) COVID-19: (3) Multifocal pneumonia: (4) HTN (hypertension) with goal to be determined: (5) Morbid obesity due to excess calories: History of Present Illness Reason for Consultation: Covid pneumonia and hypoxemic respiratory failure Requesting Physician: Dr. Cam Reyes Attending Physician: Cam Reyes, DO History of Present Illness 55-year-old male with a past medical history of morbid obesity, hypertension, hyperlipidemia who is currently incarcerated at [facility] who presented with 9 to 10 days of shortness of breath, fatigue, fever and diarrhea. He was tested positive for COVID-19 on 10/30/2020. He currently endorses mild chest pain and severe shortness of breath with rest. He is currently on CPAP at an FiO2 of 100% and currently has a respiratory rate of 45. He notes that he is very concerned about being intubated at this time and would like to wait until tomorrow. I indicated to him that his situation is quite dire and he may decompensate quite rapidly throughout the day. He still insisted that he would prefer to wait for intubation. He does note that he would like to be a full code. His white count is currently 25,000. Creatinine is 0.85. Lactate was 2.1 at midnight. AST and ALT is mildly elevated. Alkaline phosphatase of 129. Chest x-ray with diffuse multifocal infiltrates and small bilateral effusions. Troponin was less than 0.015 yesterday at 9:53 AM. Procalcitonin is 1.42. He is currently on azithromycin, cefepime and Decadron. MRSA screen was negative. Remdesivir was held due to transaminitis. INR is currently 1.2. D-dimer of 1900. Is currently on 75 mg twice daily Lovenox. He is also on aspirin 81 mg. Allergies Allergy/AdvReac Type Severity Reaction Status Date / Time shellfish derived Allergy Unknown Unknown Unverified 11/04/20 09:56 wool Allergy Unknown Unknown Unverified 11/04/20 09:56 Home Medications Medication Instructions Recorded Confirmed Type acetaminophen [Acetaminophen Extra 500 mg PO TID PRN 11/04/20 11/04/20 History Strength] aspirin 81 mg PO QAM 11/04/20 11/04/20 History atorvastatin 10 mg PO QAM 11/04/20 11/04/20 History azithromycin 250 mg PO DAILY 11/04/20 11/04/20 History celecoxib 200 mg PO QAM 11/04/20 11/04/20 History furosemide [Lasix] 20 mg PO DAILY 11/04/20 11/04/20 History guaifenesin [Mucosa] 400 mg PO TID PRN 11/04/20 11/04/20 History levalbuterol tartrate [Xopenex HFA] 2 inh INHALATION Q6H PRN 11/04/20 11/04/20 History methylprednisolone [Medrol (Sumit)] 4 mg PO UD 11/04/20 11/04/20 History ondansetron 4 mg PO DAILY PRN 11/04/20 11/04/20 History Patient History Medical History Edema HLD (hyperlipidemia) HTN (hypertension) with goal to be determined Primary osteoarthritis, unspecified site Unspecified asthma Surgical History No pertinent past surgical history Social History Smoking Status: Former smoker Second Hand Exposure: No; Do You Dip or Chew Tobacco: No; Tobacco Cessation Education Requested by Patient: No Hx Alcohol Use: No Hx Substance Use: No Preferred Language: Serbian Communication Ability: Effective Beliefs That Will Affect Care: None Current Living Situation: Other Current Living Situation Comment: [facility] Other Information That Helps Us Care for You: No Feels Safe at Home: Yes Assistive Devices: Oxygen - Continuous Review of Systems Review of Systems: All systems reviewed & are unremarkable except as noted in HPI & below Physical Exam Constitutional: + acute distress, + ill appearing and + obese; no altered mental status Eyes: PERRL, conjunctivae normal, anicteric sclerae ENMT: external ear and nose normal, oropharynx normal Neck: normal visual inspection Respiratory: Very tachypneic. Paradoxical abdominal movements. Diminished lung sounds at the bases with coarse breath sounds. Cardiovascular: RRR, no murmur, no edema Gastrointestinal (Abdomen): normal bowel sounds, soft, nontender, no hepatosplenomegaly Musculoskeletal: no cyanosis or clubbing, extremities motor strength 5/5 Skin: no rashes, warm and dry Neurologic: PERRL, EOMI, accommodation nl, no face palsy, no dysarthria Psychiatric: A+Ox3, euthymic affect Results & Data Results & Data ([facility]) Vital Signs (Past 12 Hours) Vital Signs Temp Pulse Pulse Resp BP Pulse Ox 11/05/20 10:27 87 42 H 95 11/05/20 09:50 87 27 H 93 11/05/20 07:59 99.0 F 72 18 135/77 94 12/20/20 07:52 91 H 30 H 92 12/20/20 04:22 100.0 F H 82 22 133/75 94 11/05/20 02:47 93 H 38 H 94 11/04/20 23:58 100.8 F H 90 24 133/84 94 I reviewed the vital signs, labs and imaging Coding Level of Care Code Critical Care 1st 30-74 mins Diagnoses Acute hypoxemic respiratory failure J96.01 COVID-19 U07.1 Multifocal pneumonia J18.9 HTN (hypertension) with goal to be determined I10 Morbid obesity due to excess calories E66.01 Time Spent (min) 53
[2020-11-05] MEDS: AZITHROMYCIN 250 MG in DEXTROSE 5% 250 ML IV SCH (11:35)
[2020-11-05] MEDS: FAMOTIDINE 20 MG TAB PO SCH ×2 (11:35→20:50)
[2020-11-05 12:10] LABS: NT Pro B Type Natriuretic Pept 94 pg/ml (0-900); Troponin I < 0.015 ng/ml (0-0.045)
--- NOTE | 2020-11-05 13:16 | Electrocardiogram Report ---
Test Reason : Blood Pressure : / mmHG Vent. Rate : 109 BPM Atrial Rate : 109 BPM P-R Int : 142 ms QRS Dur : 092 ms QT Int : 316 ms P-R-T Axes : 053 056 040 degrees QTc Int : 425 ms Sinus tachycardia Possible Left atrial enlargement Borderline ECG No previous ECGs available Confirmed by Sut Turcios ([id number]) on 11/05/2020 1:15:51 PM Referred By: Kim SCI Confirmed By:Sandip Turcios
[2020-11-05] MEDS ORDERED: FUROSEMIDE 40 MG/4 ML VIAL IV STA (21:25)
[2020-11-05] MEDS ORDERED: FUROSEMIDE 40 MG in SYRINGE 0 ML IV ONE (21:30)
[2020-11-05] MEDS ORDERED: RAPID SEQUENCE INDUCTION BAG ONE (21:46)
[2020-11-05] MEDS ORDERED: PROPOFOL IV EMULSION 10 MG/ML 100 ML VIAL IV ONE (22:11)
[2020-11-05] MEDS ORDERED: KETAMINE HCL INJ 50 MG/ML 10 ML VIAL ONE (22:52)
[2020-11-05] MEDS ORDERED: MIDAZOLAM HCL 5 MG/ML 1 ML VIAL ONE (22:54)
[2020-11-05] MEDS ORDERED: ROCURONIUM BROMIDE 10 MG/ML 5 ML VIAL IV ONE ×2 (22:55→23:35)
--- NOTE | 2020-11-05 22:56 | Procedure Note ---
Procedure Note Date of Service November 05, 2020 ED Intubation performed by myself with associated sedation Indication hypoxic respiratory failure 2/2 COIVID Alerted by the critical care team the need for emergent intubation of Covid patient and called to the room on the floor. The patient was on 100% oxygen via Bipap prior to the procedure. Was wearing PPE including gown, shield, facemask/N95. Discussed with the patient need for intubation given his respiratory status and he was in agreement with this plan. States he has had multiple surgeries in the past without anesthetic complications. States he has poor dentition but no dentures. Patient was noted to be somewhat obese. Suction, airway equipment, RSI drugs, respiratory equipment, and appropriate personnel were prepared prior to the initiation of the procedure. Induction was performed with 200 mg of ketamine and 150 mg of succinylcholine. After observing the clinical benefit of the medications, the critical care medicine physician news production assistant attempted intubation with a CMAC. Pulse ox initially was 90% on the BiPAP. Patient quickly desaturated and did become somewhat bradycardic HR 50s with a pulse ox into the 50s and 60s. Videoscope obscured due to secretions and attempt was unsuccessful and terminated. Manual two person BVM with viral filter in place and peep valve was utilized. Patient was given 1 mg of epinephrine and an amp of bicarb for the bradycardia. Patient never lost pulses. Patient's bradycardia resolved became somewhat tachycardic and pulse ox booker into the 80s over several minutes of bagging. Attempts (x2) by myself with a CMAC showed a highly anterior airway with copious oral secretions present. Patient sedation seems to be waning at this point given the time needed to rise a pulse ox with bagging and had some gagging during the attempt. Patient given additional 100 mg of ketamine and 100 mg of succinylcholine bagged up into the 80s and intubated with a 7.5 ET tube visualized with a #3 glide scope (for better visualization of the anterior airway). ET tube placed to 23 cm at teeth and cuff inflated. End-tidal CO2 col orimetric change was noted with bilateral breath sounds. No gastric sounds noted. Pulse ox stabilized initially in the 70s. Started on post intubation sedation with propofol. Patient's heart rate in the 80s to low 100s with occasional ectopy. [facility] physician news production assistant and respiratory/nursing team to continue further care of the patient. Coding
[2020-11-05] MEDS ORDERED: SODIUM BICARB 8.4% INJ 50 MEQ/50 ML SYR IV ONE (23:19)
[2020-11-05] MEDS ORDERED: STAT IV Infusion **Titration per Protocol STA (23:21)
[2020-11-05] MEDS ORDERED: PROPOFOL BOLUS FROM BAG IV PRN (23:21)
[2020-11-05] MEDS ORDERED: VANCOMYCIN TROUGH ONE (23:30)
[2020-11-05] MEDS: CISATRACURIUM BESYLATE 40 MG in 0.9 % SODIUM CHLORIDE 80 ML IV SCH (23:30)
[2020-11-05] MEDS: fentaNYL DRIP 1,250 MCG/250 ML BAG IV SCH (23:30)
--- NOTE | 2020-11-05 23:30 | Communication Note ---
Date of Service: November 05, 2020 I was made aware by Mr. Chawla's nurse that the patient had become more hypoxic and was now requiring 100% FiO2 on BiPAP, worsening tachypnea and labored breathing, and patient was now agreeable to be intubated. I presented to the patient's bedside and verified that he indeed was in severe respiratory distress and felt rapid sequence intubation was pertinent. Dr. Sifuentes presented from the emergency department and intubated the patient which proved to be rather difficult due to the patient's severe hypoxia, obesity, and anterior airway. See procedure note for details. Patient was successfully intubated and central line and arterial line inserted, line and tube placement confirmed with chest x- ray. However oxygen saturation remained marginal on FiO2 100% with PEEP of 16. Dr. Mosquera did present to the patient's bedside, and decision was made to paralyze and prone for 16 hours. Fentanyl propofol and Nimbex drips are ordered. Repeat gas following proning shows improvement in the patient's oxygenation. Transfer for potential ECMO has been considered as he within age limit, however patient is currently showing significant improvements following proning. We will continue with current therapy, however if patient were to decompensate from an oxygenation standpoint, will likely attempt to transfer for ECMO. CRITICAL CARE TIME - I have personally spent 70 minutes of critical care time in the direct management of this patient. This is a life/limb threatening event. This includes time spent evaluating patient, direct bedside care, chart review, placing orders, interpretation of diagnostic studies, discussion with consultants, patient, and family members, as well as other required patient management activities. This time is exclusive of all separately billable procedures, and teaching time and separate from and in addition to any other critical care service time. Coding Level of Care Code Critical Care ea addt'l 30 min
--- NOTE | 2020-11-05 23:30 | Procedure Note ---
Procedure Note Date of Service November 05, 2020 Note INTERNAL JUGULAR CENTRAL LINE PROCEDURE NOTE: Procedure: Internal Jugular Central Line Placement Attending: Dr. Mosquera Provider: NAJMA Villalobos Indication: Central Drug Administration Anesthesia: Lidocaine 1% Line placed emergently following intubation for COVID-19 pneumonia/ARDS requiring proning. A time-out was completed verifying correct patient, procedure, site, positioning, and implants(s) or special equipment if applicable. Patients right neck was cleansed and draped in the typical sterile fashion using Chloraprep. The Internal Jugular Vein and Carotid Artery were identified using ultrasound. The Internal Jugular vein was cannulated under direct ultrasound guidance using an introducer needle on a syringe. Good venous blood return was maintained prior to removal of syringe from introducer needle. Using Seldinger Technique, a guide wire was advanced through the introducer needle without resistance. The introducer needle was removed and ultrasound images were obtained of the guide wire within the Internal Jugular Vein. A small incision was made in penetrating fashion at the guide wire insertion site utilizing an 11 blade scalpel. The dilator was advanced to the vessel without resistance. The dilator was exchanged for the triple lumen catheter which was advanced into the vessel without resistance. The guide wire was removed intact from the catheter without issue. Claves were placed on each catheter tip with confirmation of good blood flow from each lumen. Each port was easily flushed with sterile saline. The catheter was placed at 15 cm and sutured in place. BioPatch was applied to the catheter and a sterile Tegaderm dressing was applied over the catheter with careful attention to sterility. Patient tolerated procedure well. No immediate complications were met. Post procedure x-ray was completed, placement was appropriate and no pneumothorax was noted. Procedural Ultrasound Guidance: Procedure Date: 11/05/2020 Indication: Central venous catheter insertion Attending: Dr. Mosquera Provider: NAJMA Villalobos Artery AND Vein visualized: Yes Compressible Vein: Yes Guidewire or Short Catheter seen in vein prior to dilation: Yes Line confirmed in Vein with ultrasound: Yes Coding CPT Codes Tubes, Drains, and Vasc Access - Tubes, Drains, and Vasc Access: [id number] Place catheter in vein superior or inferior vena cava ([id number]) Tubes, Drains, and Vasc Access - Tubes, Drains, and Vasc Access: [id number] Ultrasound Guidance For Vascular ([id number]) [facility] Procedure Codes (Charges) Tubes, Drains, and Vasc Access Procedure 3: Tubes, Drains, and Vasc Access: [id number] Place catheter in vein superior or inferior vena cava Procedure 4: Tubes, Drains, and Vasc Access: [id number] Ultrasound Guidance For Vascular
[2020-11-05] MEDS ORDERED: fentaNYL citrate 100 MCG/2 ML VIAL ONE (23:34)
[2020-11-05] MEDS: propofoL 1,000 MG/100 ML VIAL IV SCH (23:35)
--- NOTE | 2020-11-06 00:44 | Procedure Note ---
Procedure Note Date of Service November 06, 2020 Note ARTERIAL LINE PROCEDURE NOTE: Procedure: Arterial Line Placement Indication: Monitoring on Pressors Anesthesia: Continuous propofol infusion No consent was obtained this procedure was done emergently A time-out was completed verifying correct patient, procedure, site, positioning, and implant(s) or special equipment if applicable. Patients right radial wrist was prepped and draped in the usual sterile fashion. Ultrasound guidance was used to aid needle placement. A 20g Arrow arterial line was introduced into the right radial artery. Catheter was threaded, and the needle was removed with appropriate blood return. Good waveform was observed. The patient tolerated the procedure well. Blood Loss: Minimal Complications: None Coding CPT Codes Tubes, Drains, and Vasc Access - Tubes, Drains, and Vasc Access: [id number] Place catheter in vein superior or inferior vena cava ([id number]) Tubes, Drains, and Vasc Access - Tubes, Drains, and Vasc Access: [id number] Ultrasoni c Guide For Needle Placement ([id number]) [facility] Procedure Codes (Charges) Tubes, Drains, and Vasc Access Procedure 1: Tubes, Drains, and Vasc Access: [id number] Place catheter in vein superior or inferior vena cava Procedure 2: Tubes, Drains, and Vasc Access: [id number] Ultrasonic Guide For Needle Placement
[2020-11-06 00:51] LABS: iSTAT Art Bld Gas pCO2 Correct 81 mmHg (35-46); iSTAT Art Bld Gas pH Corrected 7.239 (7.35-7.45); iSTAT Arterial Blood Gas HCO3 34 meg/L (19-24); iSTAT Arterial Blood Gas pCO2 81 mmHg (35-46); iSTAT Arterial Blood Gas pH 7.24 (7.35-7.45); iSTAT Arterial Blood Gas pO2 124 mmHg (80-95); iSTAT Arterial Blood Gas pO2 C 124; iSTAT Carbon Dioxide 37 mmol/L (24-31); iSTAT FiO2 100 %; iSTAT Hematocrit 48 % (42-52); iSTAT Hemoglobin 16.3 g/dl (14.0-18.0); iSTAT Potassium 3.8 mmol/L (3.3-5.0); iSTAT Site Art Line; iSTAT Sodium 137 mmol/L (135-144)
[2020-11-06] MEDS: ENOXAPARIN 80 MG/0.8 ML SYR SQ SCH ×2 (02:33→11:32)
[2020-11-06] MEDS: propofoL 1,000 MG/100 ML VIAL IV SCH ×7 (02:34→21:47)
[2020-11-06] MEDS: CEFEPIME 2,000 MG in SYRINGE 0 ML IV SCH ×3 (04:23→20:54)
[2020-11-06] MEDS: CISATRACURIUM BESYLATE 40 MG in 0.9 % SODIUM CHLORIDE 80 ML IV SCH ×5 (04:23→22:31)
[2020-11-06 04:46] LABS: iSTAT Art Bld Gas pCO2 Correct 89 mmHg (35-46); iSTAT Art Bld Gas pH Corrected 7.215 (7.35-7.45); iSTAT Arterial Blood Gas HCO3 36 meg/L (19-24); iSTAT Arterial Blood Gas pCO2 91 mmHg (35-46); iSTAT Arterial Blood Gas pH 7.21 (7.35-7.45); iSTAT Arterial Blood Gas pO2 94 mmHg (80-95); iSTAT Arterial Blood Gas pO2 C 90; iSTAT Carbon Dioxide 39 mmol/L (24-31); iSTAT FiO2 70 %; iSTAT Hematocrit 48 % (42-52); iSTAT Hemoglobin 16.3 g/dl (14.0-18.0); iSTAT Potassium 4.5 mmol/L (3.3-5.0); iSTAT Site Art Line; iSTAT Sodium 137 mmol/L (135-144)
[2020-11-06 05:42] LABS: iSTAT Art Bld Gas pCO2 Correct 81 mmHg (35-46); iSTAT Art Bld Gas pH Corrected 7.255 (7.35-7.45); iSTAT Arterial Blood Gas HCO3 36 meg/L (19-24); iSTAT Arterial Blood Gas pCO2 84 mmHg (35-46); iSTAT Arterial Blood Gas pH 7.25 (7.35-7.45); iSTAT Arterial Blood Gas pO2 83 mmHg (80-95); iSTAT Arterial Blood Gas pO2 C 80; iSTAT Carbon Dioxide 39 mmol/L (24-31); iSTAT FiO2 60 %; iSTAT Hematocrit 46 % (42-52); iSTAT Hemoglobin 15.6 g/dl (14.0-18.0); iSTAT Potassium 4.6 mmol/L (3.3-5.0); iSTAT Site Art Line; iSTAT Sodium 136 mmol/L (135-144)
[2020-11-06 06:31] LABS: Albumin Level 2.2 gm/dl (3.4-5.0); BUN Creatinine Ratio 39.9 (10-20); Calcium 8.3 mg/dl (8.5-10.1); Creatinine Clr Calc Pharmacy 153.6 ml/min; Est GFR (African American) 117.8; Est GFR (Non-African American) 101.6; Magnesium 2.8 mg/dl (1.8-2.4); Potassium 4.7 mmol/L (3.5-5.1)
[2020-11-06 06:39] LABS: Albumin Globulin Ratio 0.4 (0.9-2); Bilirubin,Total 0.9 mg/dl (0.2-1); Phosphorus 4.3 mg/dl (2.5-4.9); Total Protein 7.2 gm/dl (6.4-8.2); Troponin I 0.591 ng/ml (0-0.045)
[2020-11-06 07:05] LABS: Hematocrit (blood only) 43.9 % (42-52); Hemoglobin 15.2 g/dL (14.0-18.0); Mean Corpuscular Hemoglobin 33.5 pg (25-34); Mean Corpuscular Hgb Conc 34.6 g/dL (32-36); Mean Corpuscular Volume 96.7 fL (80-100); Mean Platelet Volume 11.6 fL (7.4-10.4); Platelet Count 268 K/uL (130-400); RDW Coefficient of Variation 14.6 % (11.5-14.5); RDW Standard Deviation 50.7 fL (36.4-46.3); Red Blood Count 4.54 M/uL (4.7-6.1); White Blood Count 26.96 K/uL (4.8-10.8)
[2020-11-06 07:06] LABS: ALC (manual) 0.73 K/uL (1.2-3.4); ANC (manual) 23.86 K/uL (1.4-6.5); Lymphocytes # (manual) 0.49 K/uL (1.2-3.4); Lymphocytes % (manual) 1.8 %; Metamyelocytes # (manual) 0.49 K/uL (0-0); Metamyelocytes % (manual) 1.8 %; Monocytes # (manual) 1.89 K/uL (0.11-0.59); Neutrophils # (manual) 23.86 K/uL (1.4-6.5); Neutrophils % (manual) 88.5 %; Plasma Cells # (manual) 0.24 K/uL (0-0); Plasma Cells % (manual) 0.9 %; Toxic Vacuolation Occasional
--- NOTE | 2020-11-06 07:58 | XRay Report ---
XR chest 1V portable CLINICAL HISTORY: intubation COMPARISON STUDY: Chest radiograph November 04, 2020. FINDINGS: Tip of endotracheal tube is 5.1 cm above the mio. Tip of nasogastric tube is below the l ower aspect of this image but at least at the gastroesophageal junction. Tip of right internal jugula r central line projects over the SVC. There is no pneumothorax. There is a probable small right pleur al effusion. Extensive bilateral consolidation has increased. Cardiomegaly is again noted. IMPRESSION: 1. Tip of endotracheal tube 5.1 cm above the mio. 2. Increase in extensive bilateral airspace opacities which favor pneumonia. ACT 112: Negative or not required by law. Electronically signed by: Avtar Min M.D. 11/06/2020 7:56 AM
[2020-11-06] MEDS: ASPIRIN 81 MG ECTAB PO SCH (08:18)
[2020-11-06] MEDS: FAMOTIDINE 20 MG TAB PO SCH (08:20)
[2020-11-06] MEDS: ATORVASTATIN 10 MG TAB PO SCH (08:20)
[2020-11-06] MEDS: dexAMETHasone 6 MG in SYRINGE 0 ML IV SCH (08:29)
--- NOTE | 2020-11-06 11:14 | XRay Report ---
SINGLE VIEW CHEST CLINICAL HISTORY: Respiratory failure. FINDINGS: 2 PA, portable, proton chest radiographs are compared to study dated 11/05/2020. The examin ation is degraded by portable technique and patient rotation. An endotracheal tube, an enteric tube, and a right internal jugular central venous catheter are unchanged in position. The heart is enlarged . Multifocal/diffuse airspace consolidation is again seen throughout both lungs. Small pleural effusi ons are suspected. No pneumothorax is seen. The bony thorax is grossly intact. IMPRESSION: 1. Stable lines and tubes. 2. Diffuse/multifocal airspace consolidation throughout both lungs is unchanged. Differential conside rations remaining pulmonary edema and/or multifocal pneumonia. 3. Suspect small pleural effusions. ACT 112: Negative or not required by law. Electronically signed by: Juan Jose Maravilla M.D. 11/06/2020 11:13 AM
[2020-11-06] MEDS: AZITHROMYCIN 250 MG in DEXTROSE 5% 250 ML IV SCH (11:35)
[2020-11-06] MEDS: fentaNYL DRIP 1,250 MCG/250 ML BAG IV SCH (11:35)
--- NOTE | 2020-11-06 15:18 | Critical Care Progress Note ---
Date of Service November 06, 2020 Assessment & Plan (1) Acute hypoxemic respiratory failure: --Neurologic: On propofol fentanyl Patient is also paralyzed Monitor for delirium Pulmonary: VDRF with ARDS Secondary to COVID-19 pneumonia Continue with lung protective ventilation High PEEP, low tidal volume to keep Plateau < 30 with permissive hypercapnea if need be. Keep O2 saturation greater than 88% Cardiovascular: Elevated troponins --> likely secondary to type II [place]. No ST-T wave changes. Monitor Gastrointestinal: N.p.o. Renal: No issues currently. Lasix as above. CK within normal limits. Infectious disease: Procalcitonin 1.99. Sputum Gram stain negative. Nasal MRSA negative Follow-up culture Continue with antibiotics for superimposed bacterial infection COVID-19 pneumonia Continue with dexamethasone Remdesivir was not given to the patient as patient was 10 days since symptom onset. Hematologic: Elevated white count likely from steroids and possible bacterial infection. Hemoglobin stable. Endocrine: Monitoring glucose closely while on steroids. ICU hyperglycemia protocol CODE STATUS: Full code --Prophylaxis VTE: 0.5 mg/kg twice daily because of morbid obesity and COVID-19 GI: Pepcid Lines: Right IJ 11/06, right radial, intubation 11/06 Diet: N.p.o. Plan: In/out: -2.1 L, urine output 2.8 L AB.25/84/83 on PEEP of 16 FiO2 60% Go down on PEEP by 2 to keep saturation greater than 90. Continue with diuretics to keep the patient negative balance Continue with broad-spectrum antibiotics for total of 7 days. Dexamethasone for total of 10 days Continue proning and paralytics for at least 48 hours. I have personally spent 42 minutes of critical care time in the direct management of this patient. This is a life/limb threatening event. This includes time spent evaluating patient, direct bedside care, chart review, placing orders, interpretation of diagnostic studies, discussion with consultants, patient, and family members, as well as other required patient management activities. This time is exclusive of all separately billable procedures, and teaching time and separate from and in addition to any other critical care service time. Thank you for allowing us to participate in the care of this patient. (2) COVID-19: (3) Multifocal pneumonia: (4) HTN (hypertension) with goal to be determined: (5) Morbid obesity due to excess calories: Admission and Anticipated Discharge Date Admission Date: November 04, 2020 Subjective Patient seen and examined at bedside. He is from. On propofol and fentanyl. Paralyzed with Nimbex. On PEEP of 14 at the time of examination saturating 94% Shelter guards are in the room Review of Systems Review of Systems: Unobtainable due to mental health condition and Unobtainable due to endotracheal tube Physical Exam Physical Exam: Constitutional: No acute distress HEENT: PERRLA, positive ETT Respiratory system: Decreased air entry bilaterally, no wheeze, no rhonchi, p ositive crackles bilaterally CVS: S1-S2 positive, no murmurs or gallops Abdomen: Soft, nontender, nondistended, positive bowel sounds x4 Extremities: +2 pulses bilaterally radialis/ dorsalis pedis, no cyanosis, no edema, tattoos all over the body Neuro: Paralyzed Psych: Unable to assess G/U: Positive Hickey Skin: no rashes, warm and dry Lymphatic: no cervical or axillary lymphadenopathy Results & Data Results & Data ([facility]) Vital Signs (Past 12 Hours) Vital Signs Temp Pulse Resp BP Pulse Ox 11/06/20 12:50 60 11/06/20 11:20 72 34 H 93 11/06/20 10:30 36.8 C 72 98/70 L 95 11/06/20 10:00 36.8 C 75 100/70 95 11/06/20 09:30 36.8 C 76 103/65 95 11/06/20 09:00 36.7 C 78 110/76 97 11/06/20 08:30 36.6 C 78 119/80 100 11/06/20 08:00 36.6 C 79 114/78 98 11/06/20 07:41 81 34 H 97 11/06/20 07:30 36.5 C 80 97 11/06/20 07:00 36.5 C 79 107/71 95 11/06/20 06:30 36.4 C L 78 105/74 95 11/06/20 06:00 36.3 C L 83 114/75 95 11/06/20 05:30 36.3 C L 86 111/78 94 11/06/20 05:00 36.3 C L 88 115/79 93 11/06/20 04:30 36.4 C L 92 H 111/77 95 11/06/20 04:28 34 H 12/21/20 04:27 36.4 C L 92 H 32 H 115/80 95 11/06/20 04:20 92 H 32 H 95 11/06/20 04:00 36.5 C 93 H 115/80 95 11/06/20 03:30 36.6 C 94 H 111/78 97 11/06/20 05:20 11/06/20 05:20 Coding Level of Care Code Critical Care 1st 30-74 mins Diagnoses Acute hypoxemic respiratory failure J96.01 COVID-19 U07.1 Multifocal pneumonia J18.9 HTN (hypertension) with goal to be determined I10 Morbid obesity due to excess calories E66.01 Time Spent (min) 42
--- NOTE | 2020-11-06 16:25 | Hospitalist Progress Note ---
Date of Service November 06, 2020 Assessment & Plan (1) COVID-19: Continue dexamethasone 6mg IV for 10 day course, day 2 Elevated LFTs therefore remdesivir deferred. 9 days into illness at time of admission therefore convalescent plasma not ordered. severe disease, multifocal changes on CXR, he has respiratory failure (2) Acute respiratory failure with hypoxia: patient unable to maintain saturations > 88% on 60L and 100% FiO2 placed on BIPAP all day on 11/05 due to respiratory failure intubated evening of 11/05, placed prone while prone his PEEP was 12 and FiO2 50% returned to supine this evening, required higher PEEP and FiO2 immediately plan to return prone in 8 hours (3) Multifocal pneumonia: treat COVID with dexamethasone Continue cefepime 2g IV Q8H and azithromycin for possible bacterial infection (4) Sepsis: Source - COVID-19 plus possible bacterial multifocal pneumonia. Lactate 2.1, on admission. NSS 1L bolus given in ER. Given hemodynamic stability will defer further IV fluids at this time. Cover for bacterial PNA with vancomycin, cefepime and azithromycin follow blood cultures, no growth vitals stable today, main issue is hypoxemia (5) Primary osteoarthritis, unspecified site: (6) Unspecified asthma: Unclear diagnosis of this. Patient reports no previous PFTs. No wheezing on exam to suggest asthma exacerbation. (7) HTN (hypertension) with goal to be determined: Hold Lasix given current dehydrated/hypovolemic state. Monitor BP as routine (8) HLD (hyperlipidemia): Continue atorvastatin 10 mg p.o. every morning (9) DVT prophylaxis: Lovenox 0.5 mg/kg BID (due to increased BMI and COVID-19 diagnosis) Admission and Anticipated Discharge Date Admission Date: November 04, 2020 Subjective patient intubated last night turned prone oxygenating well on PEEP 12 and FiO2 of 50% he was turned supine this evening, likely plan for prone again in 8 hours vital stable, labs reviewed WBC 26k, Cr 0.78 and electrolytes stable appreciate management by Dr. Romo Review of Systems Review of Systems: Unobtainable due to endotracheal tube and Unobtainable due to reduced consciousness Physical Exam Constitutional: well developed, well nourished, + obese and + mechanically ventilated (prone) Respiratory: symmetric chest movement (ventilated) Auscultation: lungs clear to auscultation bilaterally Cardiovascular: RRR, no murmur, no edema Gastrointestinal (Abdomen): normal bowel sounds, soft, nontender, no hepatosplenomegaly Skin: no rashes, warm and dry Neurologic: + obtunded; no focal motor deficits Psychiatric: Orientation: + not alert and + not oriented x 3 Lymphatic: no cervical or axillary lymphadenopathy Results & Data Results & Data ([facility]) Vital Signs (Past 12 Hours) Vital Signs Temp Pulse Resp BP Pulse Ox 11/06/20 15:35 66 34 H 92 11/06/20 12:50 60 11/06/20 11:20 72 34 H 93 11/06/20 10:30 36.8 C 72 98/70 L 95 11/06/20 10:00 36.8 C 75 100/70 95 11/06/20 09:30 36.8 C 76 103/65 95 11/06/20 09:00 36.7 C 78 110/76 97 11/06/20 08:30 36.6 C 78 119/80 100 11/06/20 08:00 36.6 C 79 114/78 98 11/06/20 07:41 81 34 H 97 11/06/20 07:30 36.5 C 80 97 11/06/20 07:00 36.5 C 79 107/71 95 11/06/20 06:30 36.4 C L 78 105/74 95 11/06/20 06:00 36.3 C L 83 114/75 95 11/06/20 05:30 36.3 C L 86 111/78 94 11/06/20 05:00 36.3 C L 88 115/79 93 11/06/20 04:30 36.4 C L 92 H 111/77 95 11/06/20 04:28 34 H 11/06/20 04:27 36.4 C L 92 H 32 H 115/80 95 Laboratory Results Laboratory Results - last 24 hr 11/05/20 11/05/20 11/06/20 17:30 23:35 00:35 WBC RBC Hgb POC Hgb 16.3 Hct POC Hct 48 MCV MCH MCHC RDW Std Deviation RDW Coeff of Srikanth Plt Count MPV Neutrophils % (Manual) Lymphocytes % (Manual) Monocytes % (Manual) Metamyelocytes % (Man) Plasma Cell % (Manual) Neutrophils # (Manual) Total Absolute Neuts Lymphocytes # (Manual) Total Abs Lymphocytes Monocytes # (Manual) Metamyelocytes # (Man) Plasma Cell # (Manual) Toxic Vacuolation Sample Site Art Line POC pH 7.24 L POC pCO2 81 H POC pO2 124 H POC HCO3 34 H POC Total CO2 37 H POC Base Excess 7.0 H ABG pH (Temp Correct) 7.239 L ABG pCO2 (Temp Corrct 81 H POC ABG pO2 at Pt Temp 124 POC ABG O2 Sat 98.0 H Samson Test NA O2 Delivery Device Ventilator POC O2 Rate 27 Minute Ventilation 11 POC FiO2 100 Tidal Volume 420 PEEP 16 POC Sodium 137 Sodium POC Potassium 3.8 Potassium Chloride Carbon Dioxide Anion Gap BUN Creatinine Est Cr Clr Drug Dosing Est GFR ( Amer) Est GFR (Non-Af Amer) BUN/Creatinine Ratio Glucose POC Glucose Calcium Phosphorus Magnesium Total Bilirubin AST ALT Alkaline Phosphatase Troponin I < 0.015 0.213 H* Total Protein Albumin Globulin Albumin/Globulin Ratio Procalcitonin 11/06/20 11/06/20 11/06/20 04:28 05:20 05:20 WBC 26.96 H RBC 4.54 L Hgb 15.2 POC Hgb 16.3 Hct 43.9 POC Hct 48 MCV 96.7 D MCH 33.5 MCHC 34.6 RDW Std Deviation 50.7 H RDW Coeff of Srikanth 14.6 H Plt Count 268 MPV 11.6 H Neutrophils % (Manual) 88.5 Lymphocytes % (Manual) 1.8 Monocytes % (Manual) 7.0 Metamyelocytes % (Man) 1.8 Plasma Cell % (Manual) 0.9 Neutrophils # (Manual) 23.86 H Total Absolute Neuts 23.86 H Lymphocytes # (Manual) 0.49 L Total Abs Lymphocytes 0.73 L Monocytes # (Manual) 1.89 H Metamyelocytes # (Man) 0.49 H Plasma Cell # (Manual) 0.24 H Toxic Vacuolation Occasional Sample Site Art Line POC pH 7.21 L POC pCO2 91 H POC pO2 94 POC HCO3 36 H POC Total CO2 39 H POC Base Excess 8.0 H ABG pH (Temp Correct) 7.215 L ABG pCO2 (Temp Corrct 89 H POC ABG pO2 at Pt Temp 90 POC ABG O2 Sat 94.0 Samson Test NA O2 Delivery Device Ventilator POC O2 Rate 32 Minute Ventilation POC FiO2 70 Tidal Volume 380 PEEP 16 POC Sodium 137 Sodium POC Potassium 4.5 Potassium Chloride Carbon Dioxide Anion Gap BUN Creatinine Est Cr Clr Drug Dosing Est GFR ( Amer) Est GFR (Non-Af Amer) BUN/Creatinine Ratio Glucose POC Glucose Calcium Phosphorus Magnesium Total Bilirubin AST ALT Alkaline Phosphatase Troponin I Total Protein Albumin Globulin Albumin/Globulin Ratio Procalcitonin 1.99 H 11/06/20 11/06/20 11/06/20 05:20 05:27 11:58 WBC RBC Hgb POC Hgb 15.6 Hct POC Hct 46 MCV MCH MCHC RDW Std Deviation RDW Coeff of Srikanth Plt Count MPV Neutrophils % (Manual) Lymphocytes % (Manual) Monocytes % (Manual) Metamyelocytes % (Man) Plasma Cell % (Manual) Neutrophils # (Manual) Total Absolute Neuts Lymphocytes # (Manual) Total Abs Lymphocytes Monocytes # (Manual) Metamyelocytes # (Man) Plasma Cell # (Manual) Toxic Vacuolation Sample Site Art Line POC pH 7.25 L POC pCO2 84 H POC pO2 83 POC HCO3 36 H POC Total CO2 39 H POC Base Excess 9.0 H ABG pH (Temp Correct) 7.255 L ABG pCO2 (Temp Corrct 81 H POC ABG pO2 at Pt Temp 80 POC ABG O2 Sat 93.0 Samson Test NA O2 Delivery Device Ventilator POC O2 Rate 34 Minute Ventilation POC FiO2 60 Tidal Volume 400 PEEP 16 POC Sodium 136 Sodium 136 POC Potassium 4.6 Potassium 4.7 Chloride 100 Carbon Dioxide 34 H Anion Gap 2.0 L BUN 31 H Creatinine 0.78 Est Cr Clr Drug Dosing 153.6 Est GFR ( Amer) 117.8 Est GFR (Non-Af Amer) 101.6 BUN/Creatinine Ratio 39.9 H Glucose 134 H POC Glucose 131 H Calcium 8.3 L Phosphorus 4.3 Magnesium 2.8 H Total Bilirubin 0.9 D AST 76 H ALT 53 Alkaline Phosphatase 138 H Troponin I 0.591 H* Total Protein 7.2 Albumin 2.2 L Globulin 5.0 H Albumin/Globulin Ratio 0.4 L Procalcitonin Medications Administered Current Inpatient Medications Acetaminophen (Acetaminophen 325 Mg Tab) 650 mg PO Q4H PRN PRN Reason: Pain or Fever Stop: 12/04/20 12:09 Last Admin: 11/05/20 01:49 Dose: 650 mg Documented by: Al Hydrox/Mg Hydrox/Simethicone (Aluminum/Magnesium Susp 30 Ml Udc) 15 ml PO Q4H PRN PRN Reason: Dyspepsia Stop: 12/04/20 12:09 Aspirin (Aspirin 81 Mg Ectab) [facility] Stop: 12/05/20 08:59 Last Admin: 11/06/20 08:18 Dose: Not Given Documented by: Atorvastatin Calcium (Atorvastatin 10 Mg Tab) 10 mg PO QAM [facility] Stop: 12/05/20 08:59 Last Admin: 11/06/20 08:20 Dose: Not Given Documented by: Enoxaparin Sodium (Enoxaparin 80 Mg/0.8 Ml Syr) 75 mg SQ Q12H [facility] Stop: 12/04/20 12:29 Last Admin: 11/06/20 11:32 Dose: 75 mg Documented by: Famotidine (Famotidine 20 Mg Tab) 20 mg PO BID [facility] Stop: 12/05/20 11:29 Last Admin: 11/06/20 08:20 Dose: Not Given Documented by: Fentanyl Citrate (Fentanyl Bolus From Bag) 50 mcg IV Q60M PRN PRN Reason: Pain or Agitation Stop: 11/19/20 23:20 Azithromycin 250 mg/ Dextrose 252.5 mls @ 125 mls/hr IV Q24H [facility] Stop: 11/10/20 12:59 Last Infusion: 11/06/20 14:19 Dose: Infused Documented by: Cefepime HCl 2,000 mg/ Syringe 20 mls @ 5 mls/min IV Q8H [facility]; Protocol Stop: 11/12/20 03:59 Last Admin: 11/06/20 11:35 Dose: 5 mls/min Documented by: Dexamethasone 6 mg/ Syringe 1.5 mls @ 1 mls/min IV [facility] Stop: 11/14/20 08:59 Last Admin: 11/06/20 08:29 Dose: 1 mls/min Documented by: Cisatracurium Besylate 40 mg/ (Sodium Chloride) 100 mls @ 10.95 mls/hr IV .Q9H8M [facility]; Protocol Stop: 12/05/20 23:29 Last Admin: 11/06/20 12:41 Dose: 1 mcg/kg/min, 11 mls/hr Documented by: Propofol (Diprivan) 1,000 mg in 100 mls @ 17.304 mls/hr IV .Q5H47M [facility]; Protocol Stop: 11/08/20 23:29 Last Admin: 11/06/20 14:42 Dose: 35 mcg/kg/min, 30.3 mls/hr Documented by: Fentanyl Citrate (Fentanyl Drip) 1,250 mcg in 250 mls @ 5 mls/hr IV .Q50H [facility]; Protocol Stop: 11/19/20 23:29 Last Admin: 11/06/20 11:35 Dose: 75 mcg/hr, 15 mls/hr Documented by: Furosemide 40 mg/ Syringe 4 mls @ 4 mls/min IV DAILY [facility] Stop: 12/06/20 15:29 Levalbuterol HCl (Levalbuterol Tartrate 15 Gm Hfa.Aer.Ad) 2 puffs INH Q6H PRN PRN Reason: Shortness Of Breath Stop: 12/04/20 12:09 Miscellaneous Information (Cefepime Consult Active) 1 ea N/A UD PRN PRN Reason: Consult Stop: 12/05/20 03:01 Ondansetron HCl (Ondansetron Inj 2 Mg/Ml 2 Ml Vial) 4 mg IV Q6H PRN PRN Reason: Nausea Stop: 12/04/20 12:09 Polyethylene Glycol (Polyethylene (Miralax) 17 Gm Pack) 17 gm PO DAILY PRN PRN Reason: Constipation Stop: 12/04/20 12:09 Propofol (Propofol Bolus From Bag) 20 mg IV Q5M PRN PRN Reason: Sedation Stop: 11/08/20 23:20 PG Care Time/CCT Total # of Minutes Spent Total Time Spent with Patient: Total time spent is greater than 50% in coordination of care (as documented) at patient's floor/unit and/or counseling patient: Coding Level of Care Code 95244 Subseq Hosp Care Lvl 3 Diagnoses COVID-19 U07.1 Acute respiratory failure with hypoxia J96.01 Multifocal pneumonia J18.9 Sepsis A41.9 Primary osteoarthritis, unspecified site M19.91 Unspecified asthma J45.909 HTN (hypertension) with goal to be determined I10 HLD (hyperlipidemia) E78.5 DVT prophylaxis Z29.9
[2020-11-06] MEDS: FUROSEMIDE 40 MG in SYRINGE 0 ML IV SCH (16:49)
--- NOTE | 2020-11-06 19:55 | Communication Note ---
Date of Service: November 06, 2020 Critical CARE addendum: Patient was supine for more than 16 hours. Plan to make the patient supine. I was present all throughout the process. When the patient was supine patient was getting good tidal volume. While being prone patient's PEEP was 12 and FiO2 50%. When the patient was made supine his saturation did drop in the 80s. He was put back to 15 of PEEP and FiO2 80% and gradually being decreased. Patient will likely need to be proned again in the next 8 hours. Coding Level of Care Code Critical Care ea addt'l 30 min Time Spent (min) 20
[2020-11-06] MEDS: FAMOTIDINE 20 MG in SYRINGE 3 ML IV SCH (21:46)
--- NOTE | 2020-11-06 23:23 | Communication Note ---
Date of Service: November 06, 2020 Mr. Chawla did not show improvement in oxygenation after being supine and was proned again at 2300 this evening. I was present during this event and there were no complications during proning. Oxygenation has shown some improvement following proning and currently weaning oxygen as oxygen saturation allows. We will follow up gas in a.m. Plan to prone patient for the next 16 hours. Continue paralytics and sedation as is. CRITICAL CARE TIME - I have personally spent 20 minutes of critical care time in the direct management of this patient. This is a life/limb threatening event. This includes time spent evaluating patient, direct bedside care, chart review, placing orders, interpretation of diagnostic studies, discussion with consultants, patient, and family members, as well as other required patient management activities. This time is exclusive of all separately billable procedures, and teaching time and separate from and in addition to any other critical care service time. Coding Level of Care Code Critical Care linus addt'l 30 min
[2020-11-07] MEDS: ENOXAPARIN 80 MG/0.8 ML SYR SQ SCH ×3 (01:04→23:40)
[2020-11-07] MEDS: propofoL 1,000 MG/100 ML VIAL IV SCH ×6 (01:04→21:12)
[2020-11-07] MEDS: CISATRACURIUM BESYLATE 40 MG in 0.9 % SODIUM CHLORIDE 80 ML IV SCH ×5 (03:40→21:10)
[2020-11-07] MEDS: fentaNYL DRIP 1,250 MCG/250 ML BAG IV SCH ×2 (03:43→21:11)
[2020-11-07 03:44] LABS: iSTAT Art Bld Gas pCO2 Correct 71 mmHg (35-46); iSTAT Art Bld Gas pH Corrected 7.327 (7.35-7.45); iSTAT Arterial Blood Gas HCO3 37 meg/L (19-24); iSTAT Arterial Blood Gas pCO2 71 mmHg (35-46); iSTAT Arterial Blood Gas pH 7.33 (7.35-7.45); iSTAT Arterial Blood Gas pO2 84 mmHg (80-95); iSTAT Arterial Blood Gas pO2 C 84; iSTAT Carbon Dioxide 39 mmol/L (24-31); iSTAT FiO2 60 %; iSTAT Hematocrit 46 % (42-52); iSTAT Hemoglobin 15.6 g/dl (14.0-18.0); iSTAT Potassium 4.3 mmol/L (3.3-5.0); iSTAT Site Art Line; iSTAT Sodium 138 mmol/L (135-144)
[2020-11-07] MEDS: CEFEPIME 2,000 MG in SYRINGE 0 ML IV SCH ×3 (04:30→20:39)
[2020-11-07] MEDS: ATORVASTATIN 10 MG TAB PO SCH (07:38)
[2020-11-07] MEDS: ASPIRIN 81 MG ECTAB PO SCH (07:38)
[2020-11-07] MEDS: dexAMETHasone 6 MG in SYRINGE 0 ML IV SCH (07:39)
[2020-11-07] MEDS: FUROSEMIDE 40 MG in SYRINGE 0 ML IV SCH (07:39)
[2020-11-07] MEDS: FAMOTIDINE 20 MG in SYRINGE 3 ML IV SCH ×2 (07:43→20:39)
[2020-11-07 08:02] LABS: Hematocrit (blood only) 45.3 % (42-52); Hemoglobin 15.2 g/dL (14.0-18.0); Mean Corpuscular Hemoglobin 32.5 pg (25-34); Mean Corpuscular Hgb Conc 33.6 g/dL (32-36); Mean Platelet Volume 11.5 fL (7.4-10.4); Platelet Count 271 K/uL (130-400); RDW Coefficient of Variation 14.7 % (11.5-14.5); RDW Standard Deviation 51.2 fL (36.4-46.3); Red Blood Count 4.67 M/uL (4.7-6.1); White Blood Count 17.92 K/uL (4.8-10.8)
[2020-11-07 08:25] LABS: ALC (manual) 0.65 K/uL (1.2-3.4); ANC (manual) 15.86 K/uL (1.4-6.5); Lymphocytes # (manual) 0.32 K/uL (1.2-3.4); Lymphocytes % (manual) 1.8 %; Metamyelocytes # (manual) 0.16 K/uL (0-0); Metamyelocytes % (manual) 0.9 %; Monocytes # (manual) 0.47 K/uL (0.11-0.59); Monocytes % (manual) 2.6 %; Myelocytes # (manual) 0.79 K/uL (0-0); Myelocytes % (manual) 4.4 %; Neutrophils # (manual) 15.86 K/uL (1.4-6.5); Neutrophils % (manual) 88.5 %; Plasma Cells # (manual) 0.32 K/uL (0-0); Plasma Cells % (manual) 1.8 %; Toxic Vacuolation 1+
[2020-11-07 08:30] LABS: Albumin Level 2.1 gm/dl (3.4-5.0); BUN Creatinine Ratio 48.2 (10-20); Creatinine Clr Calc Pharmacy 121.7 ml/min; Est GFR (African American) 102.7; Est GFR (Non-African American) 88.6; Magnesium 2.8 mg/dl (1.8-2.4); Potassium 4.4 mmol/L (3.5-5.1)
[2020-11-07 08:38] LABS: Albumin Globulin Ratio 0.4 (0.9-2); Globulin 4.9 gm/dl (2.5-4.0); Phosphorus 3.1 mg/dl (2.5-4.9)
--- NOTE | 2020-11-07 09:57 | Hospitalist Progress Note ---
Date of Service November 07, 2020 Assessment & Plan (1) COVID-19: Continue dexamethasone 6mg IV for 10 day course, day 3 Elevated LFTs therefore remdesivir deferred. 9 days into illness at time of admission therefore convalescent plasma not ordered. severe disease, multifocal changes on CXR, he has respiratory failure requiring mechanical ventilation (2) Acute respiratory failure with hypoxia: patient unable to maintain saturations > 88% on 60L and 100% FiO2 placed on BIPAP all day on 11/05 due to respiratory failure intubated evening of 11/05, placed prone doing well while prone for 16 hours then supine for 8 hours (3) Multifocal pneumonia: treat COVID with dexamethasone Continue cefepime 2g IV Q8H and azithromycin for possible bacterial infection stop after 5-7 days (4) Sepsis: Source - COVID-19 plus possible bacterial multifocal pneumonia. Lactate 2.1, on admission. NSS 1L bolus given in ER. Given hemodynamic stability will defer further IV fluids at this time. Cover for bacterial PNA with vancomycin, cefepime and azithromycin follow blood cultures, no growth vitals stable today, main issue is hypoxemia (5) Primary osteoarthritis, unspecified site: Continue celecoxib 200mg PO QAM (6) Unspecified asthma: Unclear diagnosis of this. Patient reports no previous PFTs. No wheezing on exam to suggest asthma exacerbation. (7) HTN (hypertension) with goal to be determined: Hold Lasix given current dehydrated/hypovolemic state. Monitor BP, low normal values (8) HLD (hyperlipidemia): Continue atorvastatin 10 mg p.o. every morning (9) DVT prophylaxis: Lovenox 0.5 mg/kg BID (due to increased BMI and COVID-19 diagnosis) Admission and Anticipated Discharge Date Admission Date: November 04, 2020 Subjective patient did not tolerate being supine very well last night he was returned to prone position at 2300 with reduction in FiO2 and PEEP afebrile, BP stable labs show WBC 17k, Hb 15, plts 271, Cr 0.9 with stable electrolytes appreciate management by Dr. Romo Review of Systems Review of Systems: Unobtainable due to endotracheal tube and Unobtainable due to reduced consciousness Physical Exam Constitutional: well developed, well nourished, + obese and + mechanically ventilated (prone) Respiratory: symmetric chest movement (ventilated) Auscultation: lungs clear to auscultation bilaterally Cardiovascular: RRR, no murmur, no edema Gastrointestinal (Abdomen): normal bowel sounds, soft, nontender, no hepatosplenomegaly Musculoskeletal: Head/Neck/Chest: normocephalic and head atraumatic Extremities: extremities normal to inspection; no cyanosis Skin: no rashes, warm and dry Neurologic: + obtunded; no focal motor deficits Psychiatric: Orientation: + not alert and + not oriented x 3 Lymphatic: no cervical or axillary lymphadenopathy Results & Data Results & Data ([facility]) Vital Signs (Past 12 Hours) Vital Signs Temp Pulse Resp BP Pulse Ox 11/07/20 07:20 64 34 H 95 11/07/20 07:00 36.9 C 65 95 11/07/20 06:30 36.9 C 64 94 11/07/20 06:00 36.9 C 66 94 11/07/20 05:30 36.9 C 68 95 11/07/20 05:00 36.9 C 69 108/67 95 11/07/20 04:30 36.9 C 69 107/72 95 11/07/20 04:00 36.9 C 68 109/80 95 11/07/20 03:30 37.0 C 69 34 H 108/78 95 11/07/20 03:00 37.0 C 65 103/71 95 11/07/20 02:30 37.0 C 65 104/70 96 11/07/20 02:01 37.1 C 68 104/77 98 11/07/20 02:00 37.1 C 65 97 11/07/20 01:30 37.0 C 65 95/67 L 97 11/07/20 01:00 36.9 C 61 95/66 L 97 11/07/20 00:30 36.9 C 61 91/65 L 96 11/07/20 00:00 36.9 C 61 86/56 L 95 11/06/20 23:55 61 35 H 93 11/06/20 23:30 36.7 C 60 85/58 L 93 11/06/20 23:00 89 L 11/06/20 22:30 36.6 C 62 99/63 L 89 L 11/06/20 22:00 36.5 C 62 102/63 89 L Laboratory Results Laboratory Results - last 24 hr 12/21/20 12/22/20 12/22/20 11:58 00:14 03:31 WBC RBC Hgb POC Hgb 15.6 Hct POC Hct 46 MCV MCH MCHC RDW Std Deviation RDW Coeff of Srikanth Plt Count MPV Neutrophils % (Manual) Lymphocytes % (Manual) Monocytes % (Manual) Metamyelocytes % (Man) Myelocytes % (Man) Plasma Cell % (Manual) Neutrophils # (Manual) Total Absolute Neuts Lymphocytes # (Manual) Total Abs Lymphocytes Monocytes # (Manual) Metamyelocytes # (Man) Myelocytes # (Manual) Plasma Cell # (Manual) Toxic Vacuolation Sample Site Art Line POC pH 7.33 L POC pCO2 71 H POC pO2 84 POC HCO3 37 H POC Total CO2 39 H POC Base Excess 11.0 H ABG pH (Temp Correct) 7.327 L ABG pCO2 (Temp Corrct 71 H POC ABG pO2 at Pt Temp 84 POC ABG O2 Sat 95.0 Samson Test NA O2 Delivery Device Ventilator POC O2 Rate 34 POC FiO2 60 Tidal Volume 400 PEEP 16 POC Sodium 138 Sodium POC Potassium 4.3 Potassium Chloride Carbon Dioxide Anion Gap BUN Creatinine Est Cr Clr Drug Dosing Est GFR ( Amer) Est GFR (Non-Af Amer) BUN/Creatinine Ratio Glucose POC Glucose 131 H 127 H Calcium Phosphorus Magnesium Total Bilirubin AST ALT Alkaline Phosphatase Total Protein Albumin Globulin Albumin/Globulin Ratio 11/07/20 11/07/20 11/07/20 06:13 07:29 07:29 WBC 17.92 H RBC 4.67 L Hgb 15.2 POC Hgb Hct 45.3 POC Hct MCV 97.0 MCH 32.5 MCHC 33.6 RDW Std Deviation 51.2 H RDW Coeff of Srikanth 14.7 H Plt Count 271 MPV 11.5 H Neutrophils % (Manual) 88.5 Lymphocytes % (Manual) 1.8 Monocytes % (Manual) 2.6 Metamyelocytes % (Man) 0.9 Myelocytes % (Man) 4.4 Plasma Cell % (Manual) 1.8 Neutrophils # (Manual) 15.86 H Total Absolute Neuts 15.86 H Lymphocytes # (Manual) 0.32 L Total Abs Lymphocytes 0.65 L Monocytes # (Manual) 0.47 Metamyelocytes # (Man) 0.16 H Myelocytes # (Manual) 0.79 H Plasma Cell # (Manual) 0.32 H Toxic Vacuolation 1+ Sample Site POC pH POC pCO2 POC pO2 POC HCO3 POC Total CO2 POC Base Excess ABG pH (Temp Correct) ABG pCO2 (Temp Corrct POC ABG pO2 at Pt Temp POC ABG O2 Sat Samson Test O2 Delivery Device POC O2 Rate POC FiO2 Tidal Volume PEEP POC Sodium Sodium 139 POC Potassium Potassium 4.4 Chloride 101 Carbon Dioxide 32 Anion Gap 6.0 BUN 46 H Creatinine 0.96 Est Cr Clr Drug Dosing 121.7 Est GFR ( Amer) 102.7 Est GFR (Non-Af Amer) 88.6 BUN/Creatinine Ratio 48.2 H Glucose 116 H POC Glucose 108 H Calcium 8.0 L Phosphorus 3.1 D Magnesium 2.8 H Total Bilirubin 1.0 AST 95 H ALT 58 Alkaline Phosphatase 112 Total Protein 7.0 Albumin 2.1 L Globulin 4.9 H Albumin/Globulin Ratio 0.4 L Medications Administered Current Inpatient Medications Acetaminophen (Acetaminophen 325 Mg Tab) 650 mg PO Q4H PRN PRN Reason: Pain or Fever Stop: 12/04/20 12:09 Last Admin: 11/05/20 01:49 Dose: 650 mg Documented by: Al Hydrox/Mg Hydrox/Simethicone (Aluminum/Magnesium Susp 30 Ml Udc) 15 ml PO Q4H PRN PRN Reason: Dyspepsia Stop: 12/04/20 12:09 Aspirin (Aspirin 81 Mg Ectab) [facility] [place] Stop: 12/05/20 08:59 Last Admin: 11/07/20 07:38 Dose: Not Given Documented by: Atorvastatin Calcium (Atorvastatin 10 Mg Tab) 10 mg PO QAM [facility] Stop: 12/05/20 08:59 Last Admin: 11/07/20 07:38 Dose: Not Given Documented by: Enoxaparin Sodium (Enoxaparin 80 Mg/0.8 Ml Syr) 75 mg SQ Q12H [facility] Stop: 12/04/20 12:29 Last Admin: 11/07/20 01:04 Dose: 75 mg Documented by: Fentanyl Citrate (Fentanyl Bolus From Bag) 50 mcg IV Q60M PRN PRN Reason: Pain or Agitation Stop: 11/19/20 23:20 Azithromycin 250 mg/ Dextrose 252.5 mls @ 125 mls/hr IV Q24H [facility] Stop: 11/10/20 12:59 Last Infusion: 11/06/20 14:19 Dose: Infused Documented by: Cefepime HCl 2,000 mg/ Syringe 20 mls @ 5 mls/min IV Q8H [facility]; Protocol Stop: 11/12/20 03:59 Last Admin: 11/07/20 04:30 Dose: 5 mls/min Documented by: Dexamethasone 6 mg/ Syringe 1.5 mls @ 1 mls/min IV QAM [facility] Stop: 11/14/20 08:59 Last Admin: 11/07/20 07:39 Dose: 1 mls/min Documented by: Cisatracurium Besylate 40 mg/ (Sodium Chloride) 100 mls @ 21.9 mls/hr IV .Q4H34M [facility]; Protocol Stop: 12/05/20 23:29 Last Admin: 11/07/20 08:33 Dose: 2 mcg/kg/min, 21.9 mls/hr Documented by: Propofol (Diprivan) 1,000 mg in 100 mls @ 17.304 mls/hr IV .Q5H47M [facility]; Protocol Stop: 11/08/20 23:29 Last Admin: 11/07/20 07:37 Dose: 35 mcg/kg/min, 30.3 mls/hr Documented by: Fentanyl Citrate (Fentanyl Drip) 1,250 mcg in 250 mls @ 5 mls/hr IV .Q50H [facility]; Protocol Stop: 11/19/20 23:29 Last Admin: 11/07/20 03:43 Dose: 75 mcg/hr, 15 mls/hr Documented by: Furosemide 40 mg/ Syringe 4 mls @ 4 mls/min IV DAILY [facility] Stop: 12/06/20 15:29 Last Admin: 11/07/20 07:39 Dose: 4 mls/min Documented by: Famotidine 20 mg/ Syringe 5 mls @ 2.5 mls/min IV BID [facility] Stop: 12/06/20 20:59 Last Admin: 11/07/20 07:43 Dose: 2.5 mls/min Documented by: Levalbuterol HCl (Levalbuterol Tartrate 15 Gm Hfa.Aer.Ad) 2 puffs INH Q6H PRN PRN Reason: Shortness Of Breath Stop: 12/04/20 12:09 Miscellaneous Information (Cefepime Consult Active) 1 ea N/A UD PRN PRN Reason: Consult Stop: 12/05/20 03:01 Ondansetron HCl (Ondansetron Inj 2 Mg/Ml 2 Ml Vial) 4 mg IV Q6H PRN PRN Reason: Nausea Stop: 12/04/20 12:09 Polyethylene Glycol (Polyethylene (Miralax) 17 Gm Pack) 17 gm PO DAILY PRN PRN Reason: Constipation Stop: 12/04/20 12:09 Propofol (Propofol Bolus From Bag) 20 mg IV Q5M PRN PRN Reason: Sedation Stop: 11/08/20 23:20 PG Care Time/CCT Total # of Minutes Spent Total Time Spent with Patient: Total time spent is greater than 50% in coordination of care (as documented) at patient's floor/unit and/or counseling patient: Coding Level of Care Code 21812 Subseq Hosp Care Lvl 2 Diagnoses COVID-19 U07.1 Acute respiratory failure with hypoxia J96.01 Multifocal pneumonia J18.9 Sepsis A41.9 Primary osteoarthritis, unspecified site M19.91 Unspecified asthma J45.909 HTN (hypertension) with goal to be determined I10 HLD (hyperlipidemia) E78.5 DVT prophylaxis Z29.9
[2020-11-07 11:14] LABS: iSTAT Art Bld Gas pCO2 Correct 56 mmHg (35-46); iSTAT Art Bld Gas pH Corrected 7.406 (7.35-7.45); iSTAT Arterial Blood Gas HCO3 35 meg/L (19-24); iSTAT Arterial Blood Gas pCO2 56 mmHg (35-46); iSTAT Arterial Blood Gas pH 7.41 (7.35-7.45); iSTAT Arterial Blood Gas pO2 65 mmHg (80-95); iSTAT Arterial Blood Gas pO2 C 65; iSTAT Carbon Dioxide 37 mmol/L (24-31); iSTAT FiO2 50 %; iSTAT Hematocrit 46 % (42-52); iSTAT Hemoglobin 15.6 g/dl (14.0-18.0); iSTAT Site Art Line; iSTAT Sodium 139 mmol/L (135-144)
[2020-11-07] MEDS: AZITHROMYCIN 250 MG in DEXTROSE 5% 250 ML IV SCH (12:31)
--- NOTE | 2020-11-07 17:28 | Critical Care Progress Note ---
Date of Service November 07, 2020 Assessment & Plan (1) Acute hypoxemic respiratory failure: Neurologic: On propofol fentanyl Patient is also paralyzed Monitor for delirium Pulmonary: VDRF with ARDS Secondary to COVID-19 pneumonia Continue with lung protective ventilation High PEEP, low tidal volume to keep Plateau < 30 with permissive hypercapnea if need be. Keep O2 saturation greater than 88% Cardiovascular: Elevated troponins --> likely secondary to type II [place]. No ST-T wave changes. Monitor Gastrointestinal: N.p.o. Renal: No issues currently. Lasix as above. CK within normal limits. Infectious disease: Procalcitonin 1.99. Sputum Gram stain negative. Nasal MRSA negative Follow-up culture Continue with antibiotics for superimposed bacterial infection COVID-19 pneumonia Continue with dexamethasone Remdesivir was not given to the patient as patient was 10 days since symptom onset. Hematologic: Elevated white count likely from steroids and possible bacterial infection. Hemoglobin stable. Endocrine: Monitoring glucose closely while on steroids. ICU hyperglycemia protocol CODE STATUS: Full code --Prophylaxis VTE: 0.5 mg/kg twice daily because of morbid obesity and COVID-19 GI: Pepcid Lines: Right IJ 11/06, right radial, intubation 11/06 Diet: N.p.o. Plan: In/out: Negative 329, urine output 2 L AB.41/56/65 on 50%, PEEP of 10, tidal volume 430 Continue with vent support. Try to go down on FiO2. Continue with broad-spectrum antibiotics for total of 7 days. Dexamethasone for total of 10 days Continue proning and paralytics for at least 48 hours. I have personally spent 35 minutes of critical care time in the direct management of this patient. This is a life/limb threatening event. This includes time spent evaluating patient, direct bedside care, chart review, placing orders, interpretation of diagnostic studies, discussion with consultants, patient, and family members, as well as other required patient management activities. This time is exclusive of all separately billable procedures, and teaching time and separate from and in addition to any other critical care service time. Thank you for allowing us to participate in the care of this patient. (2) COVID-19: (3) Multifocal pneumonia: (4) HTN (hypertension) with goal to be determined: (5) Morbid obesity due to excess calories: Admission and Anticipated Discharge Date Admission Date: November 04, 2020 Subjective Patient seen and examined at bedside. Patient was prone. Saturating well. Went down on peep to 10. Paralysed. On Nimbex, Propofol and fentanyl Afebrile Review of Systems Review of Systems: Unobtainable due to mental health condition and Unobtainable due to endotracheal tube Physical Exam Physical Exam: Constitutional: No acute distress HEENT: PERRLA, positive ETT Respiratory system: Decreased air entry bilaterally, no wheeze, no rhonchi, positive crackles bilaterally CVS: S1-S2 positive, no murmurs or gallops Abdomen: Soft, nontender, nondistended, positive bowel sounds x4 Extremities: +2 pulses bilaterally radialis/ dorsalis pedis, no cyanosis, no edema, tattoos all over the body Neuro: Paralyzed Psych: Unable to assess G/U: Positive Hickey Skin: no rashes, warm and dry Lymphatic: no cervical or axillary lymphadenopathy Results & Data Results & Data ([facility]) Vital Signs (Past 12 Hours) Vital Signs Temp Pulse Resp Pulse Ox 11/07/20 15:47 63 30 H 94 11/07/20 11:55 64 30 H 94 11/07/20 10:00 36.9 C 61 93 11/07/20 09:00 36.8 C 67 94 11/07/20 08:00 36.7 C 61 97 11/07/20 07:20 64 34 H 95 11/07/20 07:00 36.9 C 65 95 11/07/20 06:30 36.9 C 64 94 11/07/20 06:00 36.9 C 66 94 11/07/20 05:30 36.9 C 68 95 11/07/20 07:29 11/07/20 07:29 Coding Level of Care Code Critical Care 1st 30-74 mins Diagnoses Acute hypoxemic respiratory failure J96.01 COVID-19 U07.1 Multifocal pneumonia J18.9 HTN (hypertension) with goal to be determined I10 Morbid obesity due to excess calories E66.01 Time Spent (min) 35
--- NOTE | 2020-11-07 19:02 | XRay Report ---
SINGLE VIEW CHEST CLINICAL HISTORY: Respiratory failure. FINDINGS: An AP, portable, upright chest radiograph is compared to study dated 11/06/2020. The examin ation is degraded by portable technique and patient rotation. An endotracheal tube, an enteric tube, and a right internal jugular central venous catheter are unchanged in position. The heart is enlarged . Multifocal/diffuse airspace consolidation is again seen throughout both lungs. Small pleural effusi ons are noted. No pneumothorax is seen. The bony thorax is grossly intact. IMPRESSION: 1. Stable lines and tubes. 2. Diffuse/multifocal airspace consolidation throughout both lungs is unchanged from yesterday. Diffe rential considerations remaining pulmonary edema and/or multifocal pneumonia. 3. Small pleural effusions. ACT 112: Negative or not required by law. Electronically signed by: Juan Jose Maravilla M.D. 11/07/2020 7:01 PM
--- NOTE | 2020-11-07 19:55 | Communication Note ---
Date of Service: November 07, 2020 Critical CARE addendum: Patient was prone for total of 17 hours. Plan was made to make the patient supine. I was present all throughout the procedure of changing the position of the patient to supine. Patient's tidal volume was maintained after changing the position. Continue with vent support. If the PEEP stays 10 or low with FiO2 less than 60 would not prone the patient again. Coding Level of Care Code Critical Care ea addt'l 30 min Time Spent (min) 21
[2020-11-08] MEDS: CISATRACURIUM BESYLATE 40 MG in 0.9 % SODIUM CHLORIDE 80 ML IV SCH ×2 (02:11→07:15)
[2020-11-08] MEDS: propofoL 1,000 MG/100 ML VIAL IV SCH ×6 (03:37→20:12)
[2020-11-08] MEDS: CEFEPIME 2,000 MG in SYRINGE 0 ML IV SCH (03:39)
[2020-11-08 04:16] LABS: iSTAT Art Bld Gas pCO2 Correct 47 mmHg (35-46); iSTAT Art Bld Gas pH Corrected 7.459 (7.35-7.45); iSTAT Arterial Blood Gas HCO3 33 meg/L (19-24); iSTAT Arterial Blood Gas pCO2 47 mmHg (35-46); iSTAT Arterial Blood Gas pH 7.46 (7.35-7.45); iSTAT Arterial Blood Gas pO2 53 mmHg (80-95); iSTAT Arterial Blood Gas pO2 C 53; iSTAT Carbon Dioxide 34 mmol/L (24-31); iSTAT FiO2 60 %; iSTAT Hematocrit 42 % (42-52); iSTAT Hemoglobin 14.3 g/dl (14.0-18.0); iSTAT Site Art Line; iSTAT Sodium 140 mmol/L (135-144)
[2020-11-08 06:24] LABS: Hematocrit (blood only) 42.7 % (42-52); Hemoglobin 14.4 g/dL (14.0-18.0); Mean Corpuscular Hemoglobin 32.3 pg (25-34); Mean Corpuscular Hgb Conc 33.7 g/dL (32-36); Mean Corpuscular Volume 95.7 fL (80-100); Platelet Count 305 K/uL (130-400); RDW Coefficient of Variation 14.4 % (11.5-14.5); RDW Standard Deviation 49.3 fL (36.4-46.3); Red Blood Count 4.46 M/uL (4.7-6.1); White Blood Count 12.89 K/uL (4.8-10.8)
[2020-11-08 06:58] LABS: Calcium 8.1 mg/dl (8.5-10.1); Creatinine Clr Calc Pharmacy 112.7 ml/min; Est GFR (African American) 93.2; Est GFR (Non-African American) 80.5; Magnesium 2.9 mg/dl (1.8-2.4)
[2020-11-08 06:59] LABS: Basophils # (auto) 0.04 K/uL (0-0.2); Basophils % (auto) 0.3 %; Eosinophils # (auto) 0.05 K/uL (0-0.5); Eosinophils % (auto) 0.4 %; Immature Granulocytes # (auto) 1.02 K/uL (0.00-0.02); Immature Granulocytes % (auto) 7.9 %; Lymphocytes # (auto) 1.16 K/uL (1.2-3.4); Monocytes # (auto) 0.87 K/uL (0.11-0.59); Monocytes % (auto) 6.7 %; Neutrophils # (auto) 9.75 K/uL (1.4-6.5); Neutrophils % (auto) 75.7 %
[2020-11-08 07:03] LABS: Albumin Globulin Ratio 0.4 (0.9-2); Globulin 4.8 gm/dl (2.5-4.0); Phosphorus 2.4 mg/dl (2.5-4.9); Total Protein 6.8 gm/dl (6.4-8.2)
[2020-11-08] MEDS: FAMOTIDINE 20 MG in SYRINGE 3 ML IV SCH ×2 (07:30→19:55)
[2020-11-08] MEDS: ASPIRIN 81 MG ECTAB PO SCH (07:30)
[2020-11-08] MEDS: ATORVASTATIN 10 MG TAB PO SCH (07:30)
[2020-11-08] MEDS: FUROSEMIDE 40 MG in SYRINGE 0 ML IV SCH (07:30)
[2020-11-08] MEDS: dexAMETHasone 6 MG in SYRINGE 0 ML IV SCH (07:31)
--- NOTE | 2020-11-08 08:51 | XRay Report ---
SINGLE VIEW CHEST CLINICAL HISTORY: Respiratory failure. FINDINGS: An AP, portable, upright chest radiograph is compared to study dated 11/07/2020. The examin ation is degraded by portable technique and patient rotation. An endotracheal tube, an enteric tube, and a right internal jugular central venous catheter are unchanged in position. The heart is enlarged . Multifocal/diffuse airspace consolidation is again seen throughout both lungs. Small pleural effusi ons are noted. No pneumothorax is seen. The bony thorax is grossly intact. IMPRESSION: 1. Stable lines and tubes. 2. Diffuse/multifocal airspace consolidation throughout both lungs is unchanged from yesterday. Diffe rential considerations remaining pulmonary edema and/or multifocal pneumonia. 3. Small pleural effusions. ACT 112: Negative or not required by law. Electronically signed by: Juan Jose Maravilla M.D. 11/08/2020 8:50 AM
[2020-11-08 09:10] LABS: Creatine Kinase 535 U/L (39-308); Triglycerides 324 mg/dl (0-150)
[2020-11-08] MEDS ORDERED: FUROSEMIDE 40 MG in SYRINGE 0 ML IV ONE (09:26)
[2020-11-08] MEDS ORDERED: FUROSEMIDE 40 MG/4 ML VIAL IV ONE (09:45)
[2020-11-08] MEDS: cefTRIAXone SODIUM 2,000 MG in DEXTROSE 5% 50 ML IV SCH (11:34)
[2020-11-08] MEDS: fentaNYL DRIP 1,250 MCG/250 ML BAG IV SCH ×2 (11:37→22:06)
[2020-11-08] MEDS: ENOXAPARIN 80 MG/0.8 ML SYR SQ SCH (11:38)
[2020-11-08] MEDS: AZITHROMYCIN 250 MG in DEXTROSE 5% 250 ML IV SCH (13:43)
--- NOTE | 2020-11-08 14:39 | Critical Care Progress Note ---
Date of Service November 08, 2020 Assessment & Plan (1) Acute hypoxemic respiratory failure: Neurologic: On propofol fentanyl, Nimbex Monitor for delirium Pulmonary: VDRF with ARDS Secondary to COVID-19 pneumonia Continue with lung protective ventilation High PEEP, low tidal volume to keep Plateau < 30 with permissive hypercapnea if need be. Keep O2 saturation greater than 88% Cardiovascular: Elevated troponins --> likely secondary to type II [place]. No ST-T wave changes. Monitor Gastrointestinal: Patient's AST and ALT are going up Alk phos is within normal limit Could be secondary to antibiotic that he is on. We will keep a close eye on it. Renal: Monitor BUNs/creatinine CPK is a bit elevated this could be from proning and compression of the muscles from his weight. Would monitor. Infectious disease: Procalcitonin 1.99. Sputum Gram stain negative. Nasal MRSA negative Follow-up culture --> normal mellissa Continue with antibiotics for superimposed bacterial infection COVID-19 pneumonia Continue with dexamethasone Remdesivir was not given to the patient as patient was 10 days since symptom onset. Hematologic: Elevated white count likely from steroids and possible bacterial infection. Hemoglobin stable. Endocrine: Monitoring glucose closely while on steroids. ICU hyperglycemia protocol CODE STATUS: Full code --Prophylaxis VTE: 0.5 mg/kg twice daily because of morbid obesity and COVID-19 GI: Pepcid Lines: Right IJ 11/06, right radial, intubation 11/06 Diet: N.p.o. Plan: In/out: -171, urine output 1750 AB.46/47/53 on 50%, PEEP of 10, went down on respiratory rate. Patient's plateau is around 32 with PEEP of 12 Patient is supine. Went up on PEEP to 12 to see if there is improvement in oxygenation. Patient is more than 48 hours on paralytics. We will go up on sedation and try to take off paralytics. Continue with diuretics to keep the patient negative balance. Chest x-ray still shows diffuse bilateral infiltrates alveolar. Afebrile. Continue with broad-spectrum antibiotics for total of 7 days. Dexamethasone for total of 10 days If the patient still needs high PEEP will think about proning him again later today. I have personally spent 37 minutes of critical care time in the direct management of this patient. This is a life/limb threatening event. This includes time spent evaluating patient, direct bedside care, chart review, placing orders, interpretation of diagnostic studies, discussion with consultants, patient, and family members, as well as other required patient management activities. This time is exclusive of all separately billable procedures, and teaching time and separate from and in addition to any other critical care service time. Thank you for allowing us to participate in the care of this patient. (2) COVID-19: (3) Multifocal pneumonia: (4) HTN (hypertension) with goal to be determined: (5) Morbid obesity due to excess calories: Admission and Anticipated Discharge Date Admission Date: November 04, 2020 Subjective Patient seen and examined at bedside. On propofol, fentanyl as well as Nimbex Patient is supine. He was saturating 91% on PEEP of 10 and FiO2 60% Increase the PEEP to 12 and went down on the respiratory rate. I did try to go increase the PEEP higher but his plateau used to significant increase. Review of Systems Review of Systems: Unobtainable due to cognitive status and Unobtainable due t o endotracheal tube Physical Exam Physical Exam: Constitutional: No acute distress HEENT: PERRLA, positive ETT Respiratory system: Decreased air entry bilaterally, no wheeze, no rhonchi, positive crackles bilaterally CVS: S1-S2 positive, no murmurs or gallops Abdomen: Soft, nontender, nondistended, positive bowel sounds x4, obese Extremities: +2 pulses bilaterally radialis/ dorsalis pedis, no cyanosis, no edema, tattoos all over the body Neuro: Paralyzed Psych: Unable to assess G/U: Positive Hickey Skin: no rashes, warm and dry Lymphatic: no cervical or axillary lymphadenopathy Results & Data Results & Data ([facility]) Vital Signs (Past 12 Hours) Vital Signs Temp Pulse Resp BP Pulse Ox 11/08/20 11:47 55 L 27 H 92 11/08/20 10:00 37.2 C 59 L 114/70 91 11/08/20 09:00 37.1 C 56 L 114/70 90 11/08/20 08:26 52 L 30 H 88 L 11/08/20 08:00 37.1 C 51 L 132/76 91 11/08/20 07:00 37.1 C 53 L 118/69 91 11/08/20 06:30 37.1 C 54 L 115/66 91 11/08/20 06:00 36.9 C 55 L 119/68 91 11/08/20 05:30 37.0 C 51 L 120/62 89 L 11/08/20 05:00 37.0 C 53 L 122/68 91 11/08/20 04:30 37.0 C 56 L 116/67 91 11/08/20 04:00 37.0 C 54 L 117/68 91 11/08/20 03:52 53 L 30 H 91 11/08/20 03:30 37.0 C 55 L 112/67 92 11/08/20 03:00 37.1 C 56 L 115/66 91 11/08/20 05:58 11/08/20 05:58 Coding Level of Care Code Critical Care 1st 30-74 mins Diagnoses Acute hypoxemic respiratory failure J96.01 COVID-19 U07.1 Multifocal pneumonia J18.9 HTN (hypertension) with goal to be determined I10 Morbid obesity due to excess calories E66.01 Time Spent (min) 37
[2020-11-08] MEDS ORDERED: STAT IV Infusion **Titration per Protocol STA ×2 (18:08→19:21)
[2020-11-08] MEDS ORDERED: MIDAZOLAM BOLUS FROM BAG IV PRN (18:08)
--- NOTE | 2020-11-08 18:22 | Communication Note ---
Date of Service: November 08, 2020 Critical CARE addendum: Was called by the nurse as patient had a sinus pause of 3 and half seconds approximately. Patient was coughing at the time actively when this happened. He did get transient hypoxic which improved after the bradycardia improved. This was followed by twelve-lead EKG which showed early repolarization appreciated in lead II and III. ST depression appreciated in lead I. No T wave inversions. It seems this was most likely vasovagal response to cough leading to sinus pause. Patient is bradycardic likely from propofol. We will try to titrate off the propofol and start the patient on midazolam instead. I will repeat an EKG. Chest x-ray did not show any change compared to afternoon. No pneumothorax. Will advance ET tube by 1 cm. Cardiology has been consulted. Later around 6:30 PM patient had another sinus pause which lasted for 10 seconds and he was pulseless during that time. He returned to normal sinus bradycardia following that. No CPR was performed. Patient was given atropine 1 mg IV x1 dose. Patient was moving around tracking with eyes following the episode. Propofol was turned off. Fentanyl and midazolam were increased. Dopamine was started. I have personally spent 60 minutes of critical care time in the direct management of this patient. This is a life/limb threatening event. This includes time spent evaluating patient, direct bedside care, chart review, placing orders, interpretation of diagnostic studies, discussion with consultants, patient, and family members, as well as other required patient management activities. This time is exclusive of all separately billable procedures, and teaching time and separate from and in addition to any other critical care service time. Please note the above document was generated using voice recognition software. It may contain grammatical, syntax or spelling errors.Any formal questions or concerns about the content, text or information contained within the body of this dictation should be directly addressed to the provider for clarification. Coding Level of Care Code Critical Care ea addt'l 30 min Time Spent (min) 60
--- NOTE | 2020-11-08 18:23 | XRay Report ---
XR chest 1V portable HISTORY: 55 years-old Male krysta hypoxic acute hypoxia COMPARISON: Chest radiograph of same day 8:30 AM TECHNIQUE: Portable semierect AP view of the chest FINDINGS: Endotracheal tube overlies the midline, 4.8 cm superior to the mio. An enteric tube courses below the diaphragm outside the [id number]. Right IJ central venous catheter is unchanged with distal ti p terminating in the expected location of the mid to inferior SVC. No pneumothorax. Small pleural effusions. Cardiomegaly. Extensive multifocal alveolar opacities are redemonstrated and appear unchanged from comparison. Bones appear grossly intact. IMPRESSION: 1. Lines and tubes as above. No pneumothorax. 2. Unchanged extensive bilateral airspace opacities suggestive of pneumonia and/or pulmonary edema. 3. Cardiomegaly. ACT 112: Negative or not required by law. The above report was generated using voice recognition software. It may contain grammatical, syntax o r spelling errors. Electronically signed by: Mando De Santiago M.D. 11/08/2020 6:21 PM
[2020-11-08] MEDS: MIDAZOLAM HCL 125 MG/250 ML BAG IV SCH (18:32)
[2020-11-08] MEDS ORDERED: GLYCOPYRROLATE 0.2 MG/ML VIAL ONE (18:53)
[2020-11-08] MEDS ORDERED: DOPamine 400MG / 250ML D5W IV ONE (19:04)
[2020-11-08] MEDS ORDERED: ATROPINE SULFATE 0.1 MG/ML 10ML SYR IV ONE (19:04)
[2020-11-08] MEDS ORDERED: ATROPINE SULFATE 0.1 MG/ML 10ML SYR IV STA (19:20)
[2020-11-08] MEDS: DOPamine / D5W 400 MG/250 ML BAG IV SCH (19:53)
--- NOTE | 2020-11-08 22:05 | Hospitalist Progress Note ---
Date of Service November 08, 2020 Assessment & Plan (1) COVID-19: Continue dexamethasone 6mg IV for 10 day course, day 4 Elevated LFTs therefore remdesivir deferred. 9 days into illness at time of admission therefore convalescent plasma not ordered. severe disease, multifocal changes on CXR, he has respiratory failure requiring mechanical ventilation (2) Acute respiratory failure with hypoxia: patient unable to maintain saturations > 88% on 60L and 100% FiO2 placed on BIPAP all day on 11/05 due to respiratory failure intubated evening of 11/05, placed prone doing well while prone for 16 hours then supine for 8 hours supine today, requiring PEEP of 12, may need to turn prone again sedations with Versed, Fentanyl, titrate off of Nimbex (3) Multifocal pneumonia: treat COVID with dexamethasone Continue cefepime 2g IV Q8H and azithromycin for possible bacterial infection stop after 5-7 days no fever, WBC is 12k (4) Sepsis: Source - COVID-19 plus possible bacterial multifocal pneumonia. Lactate 2.1, on admission. NSS 1L bolus given in ER. Given hemodynamic stability will defer further IV fluids at this time. Cover for bacterial PNA with cefepime and azithromycin follow blood cultures, no growth, no fever, WBC 12k vitals stable today, main issue is hypoxemia (5) Primary osteoarthritis, unspecified site: Continue celecoxib 200mg PO QAM (6) Unspecified asthma: Unclear diagnosis of this. Patient reports no previous PFTs. No wheezing on exam to suggest asthma exacerbation. (7) HTN (hypertension) with goal to be determined: Hold Lasix given current dehydrated/hypovolemic state. Monitor BP, low normal values (8) HLD (hyperlipidemia): Continue atorvastatin 10 mg p.o. every morning (9) DVT prophylaxis: Lovenox 0.5 mg/kg BID (due to increased BMI and COVID-19 diagnosis) Admission and Anticipated Discharge Date Admission Date: November 04, 2020 Subjective patient still needing high PEEP of 12 he had a sinus pause of three seconds with a cough, likely from vagal tone try to wean off Propofol and use Versed and Fentanyl, titrate off of Nimbex as well Dr Romo march prone patient again Review of Systems Review of Systems: Unobtainable due to endotracheal tube and Unobtainable due to reduced consciousness Physical Exam Constitutional: well developed, well nourished, + obese and + mechanically ventilated (supine) Respiratory: symmetric chest movement (ventilated) Auscultation: lungs clear to auscultation bilaterally Cardiovascular: RRR, no murmur, no edema Gastrointestinal (Abdomen): normal bowel sounds, soft, nontender, no hepatosplenomegaly Musculoskeletal: Head/Neck/Chest: normocephalic and head atraumatic Extremities: extremities normal to inspection; no cyanosis Skin: no rashes, warm and dry Neurologic: + obtunded; no focal motor deficits Psychiatric: Orientation: + not alert and + not oriented x 3 Lymphatic: no cervical or axillary lymphadenopathy Results & Data Results & Data ([facility]) Vital Signs (Past 12 Hours) Vital Signs Temp Pulse Resp BP Pulse Ox 11/08/20 21:00 37.2 C 78 131/73 92 11/08/20 20:00 37.1 C 77 87 L 11/08/20 19:26 37.1 C 80 146/84 H 91 11/08/20 19:19 80 28 H 92 11/08/20 19:00 37.2 C 74 168/94 H 95 11/08/20 18:30 37.4 C 57 L 26 H 121/76 92 11/08/20 18:00 37.4 C 56 L 115/69 90 11/08/20 17:31 37.5 C 52 L 26 H 117/71 86 L 11/08/20 17:00 37.4 C 60 116/73 91 11/08/20 16:30 37.5 C 61 115/71 92 11/08/20 16:01 60 27 H 95 11/08/20 16:00 37.5 C 60 114/71 94 11/08/20 15:30 37.5 C 61 28 H 112/67 94 11/08/20 14:30 37.6 C H 61 26 H 109/72 94 11/08/20 13:30 37.5 C 61 116/71 94 11/08/20 12:30 37.4 C 60 26 H 114/71 93 11/08/20 12:00 37.3 C 57 L 114/72 92 11/08/20 11:47 55 L 27 H 92 11/08/20 11:30 37.4 C 56 L 112/74 93 11/08/20 11:00 37.4 C 58 L 115/70 92 11/08/20 10:30 37.3 C 58 L 106/70 92 Laboratory Results Laboratory Results - last 24 hr 11/05/20 11/07/20 11/08/20 13:00 23:50 03:52 WBC RBC Hgb POC Hgb 14.3 Hct POC Hct 42 MCV MCH MCHC RDW Std Deviation RDW Coeff of Srikanth Plt Count MPV Immature Gran % (Auto) Neut % (Auto) Lymph % (Auto) Antelope % (Auto) Eos % (Auto) Baso % (Auto) Neut # (Auto) Lymph # (Auto) Antelope # (Auto) Eos # (Auto) Baso # (Auto) Immature Gran # (Auto) Sample Site Art Line POC pH 7.46 H POC pCO2 47 H POC pO2 53 L POC HCO3 33 H POC Total CO2 34 H POC Base Excess 9.0 H ABG pH (Temp Correct) 7.459 H ABG pCO2 (Temp Corrct 47 H POC ABG pO2 at Pt Temp 53 POC ABG O2 Sat 88.0 L Samson Test NA O2 Delivery Device Ventilator POC O2 Rate 30 Minute Ventilation 12 POC FiO2 60 Tidal Volume 430 PEEP 10 POC Sodium 140 Sodium POC Potassium 4.0 Potassium Chloride Carbon Dioxide Anion Gap BUN Creatinine Est Cr Clr Drug Dosing Est GFR ( Amer) Est GFR (Non-Af Amer) BUN/Creatinine Ratio Glucose POC Glucose 108 H Calcium Phosphorus Magnesium Total Bilirubin AST ALT Alkaline Phosphatase Total Creatine Kinase Troponin I Total Protein Albumin Globulin Albumin/Globulin Ratio Triglycerides Procalcitonin Specimen Hemolysis Urine Legionella Ag SEE NOTE 11/08/20 11/08/20 11/08/20 05:58 05:58 05:58 WBC 12.89 H RBC 4.46 L Hgb 14.4 POC Hgb Hct 42.7 POC Hct MCV 95.7 MCH 32.3 MCHC 33.7 RDW Std Deviation 49.3 H RDW Coeff of Srikanth 14.4 Plt Count 305 MPV 11.0 H Immature Gran % (Auto) 7.9 Neut % (Auto) 75.7 Lymph % (Auto) 9.0 Antelope % (Auto) 6.7 Eos % (Auto) 0.4 Baso % (Auto) 0.3 Neut # (Auto) 9.75 H Lymph # (Auto) 1.16 L Antelope # (Auto) 0.87 H Eos # (Auto) 0.05 Baso # (Auto) 0.04 Immature Gran # (Auto) 1.02 H Sample Site POC pH POC pCO2 POC pO2 POC HCO3 POC Total CO2 POC Base Excess ABG pH (Temp Correct) ABG pCO2 (Temp Corrct POC ABG pO2 at Pt Temp POC ABG O2 Sat Samson Test O2 Delivery Device POC O2 Rate Minute Ventilation POC FiO2 Tidal Volume PEEP POC Sodium Sodium 139 POC Potassium Potassium 4.0 Chloride 102 Carbon Dioxide 33 H Anion Gap 4.0 BUN 56 H Creatinine 1.04 Est Cr Clr Drug Dosing 112.7 Est GFR ( Amer) 93.2 Est GFR (Non-Af Amer) 80.5 BUN/Creatinine Ratio 54.0 H Glucose 105 H POC Glucose Calcium 8.1 L Phosphorus 2.4 L Magnesium 2.9 H Total Bilirubin 1.0 AST 140 H ALT 83 H Alkaline Phosphatase 101 Total Creatine Kinase Troponin I Total Protein 6.8 Albumin 2.0 L Globulin 4.8 H Albumin/Globulin Ratio 0.4 L Triglycerides Procalcitonin 0.97 H Specimen Hemolysis Urine Legionella Ag 11/08/20 11/08/20 11/08/20 06:01 07:46 18:39 WBC RBC Hgb POC Hgb Hct POC Hct MCV MCH MCHC RDW Std Deviation RDW Coeff of Srikanth Plt Count MPV Immature Gran % (Auto) Neut % (Auto) Lymph % (Auto) Antelope % (Auto) Eos % (Auto) Baso % (Auto) Neut # (Auto) Lymph # (Auto) Antelope # (Auto) Eos # (Auto) Baso # (Auto) Immature Gran # (Auto) Sample Site POC pH POC pCO2 POC pO2 POC HCO3 POC Total CO2 POC Base Excess ABG pH (Temp Correct) ABG pCO2 (Temp Corrct POC ABG pO2 at Pt Temp POC ABG O2 Sat Samson Test O2 Delivery Device POC O2 Rate Minute Ventilation POC FiO2 Tidal Volume PEEP POC Sodium Sodium POC Potassium Potassium Chloride Carbon Dioxide Anion Gap BUN Creatinine Est Cr Clr Drug Dosing Est GFR ( Amer) Est GFR (Non-Af Amer) BUN/Creatinine Ratio Glucose POC Glucose 95 Calcium Phosphorus Magnesium Total Bilirubin AST ALT Alkaline Phosphatase Total Creatine Kinase 535 H Troponin I 0.052 H* Total Protein Albumin Globulin Albumin/Globulin Ratio Triglycerides 324 H Procalcitonin Specimen Hemolysis Urine Legionella Ag Medications Administered Current Inpatient Medications Acetaminophen (Acetaminophen 325 Mg Tab) 650 mg PO Q4H PRN PRN Reason: Pain or Fever Stop: 12/04/20 12:09 Last Admin: 11/05/20 01:49 Dose: 650 mg Documented by: Al Hydrox/Mg Hydrox/Simethicone (Aluminum/Magnesium Susp 30 Ml Udc) 15 ml PO Q4H PRN PRN Reason: Dyspepsia Stop: 12/04/20 12:09 Aspirin (Aspirin 81 Mg Ectab) 81 mg PO [facility] Stop: 12/05/20 08:59 Last Admin: 11/08/20 07:30 Dose: 81 mg Documented by: Atorvastatin Calcium (Atorvastatin 10 Mg Tab) 10 mg PO [facility] Stop: 12/05/20 08:59 Last Admin: 11/08/20 07:30 Dose: 10 mg Documented by: Enoxaparin Sodium (Enoxaparin 80 Mg/0.8 Ml Syr) 75 mg SQ Q12H [facility] Stop: 12/04/20 12:29 Last Admin: 11/08/20 11:38 Dose: 75 mg Documented by: Fentanyl Citrate (Fentanyl Bolus From Bag) 50 mcg IV Q60M PRN PRN Reason: Pain or Agitation Stop: 11/19/20 23:20 Heparin Sodium (Beef Lung) (Heparin 10 Unit/Ml 5 Ml Flush) 5 ml FLUSH PRN PRN PRN Reason: Flush Stop: 12/07/20 22:48 Azithromycin 250 mg/ Dextrose 252.5 mls @ 125 mls/hr IV Q24H [facility] Stop: 11/08/20 23:59 Last Infusion: 11/08/20 16:44 Dose: Infused Documented by: Dexamethasone 6 mg/ Syringe 1.5 mls @ 1 mls/min IV [facility] Stop: 11/14/20 08:59 Last Admin: 11/08/20 07:31 Dose: 1 mls/min Documented by: Cisatracurium Besylate 40 mg/ (Sodium Chloride) 100 mls @ 0 mls/hr IV .Q0M [facility]; Protocol Stop: 12/05/20 23:29 Last Titration: 11/08/20 19:17 Dose: Infused Documented by: Propofol (Diprivan) 1,000 mg in 100 mls @ 0 mls/hr IV .Q0M [facility]; Protocol Stop: 11/08/20 23:29 Last Admin: 11/08/20 20:12 Dose: Not Given Documented by: Fentanyl Citrate (Fentanyl Drip) 1,250 mcg in 250 mls @ 30 mls/hr IV .Q8H20M [facility]; Protocol Stop: 11/19/20 23:29 Last Titration: 11/08/20 20:00 Dose: 150 mcg/hr, 30 mls/hr Documented by: Famotidine 20 mg/ Syringe 5 mls @ 2.5 mls/min IV BID [facility] Stop: 12/06/20 20:59 Last Admin: 11/08/20 19:55 Dose: 2.5 mls/min Documented by: Ceftriaxone Sodium 2,000 mg/ (Dextrose) 70 mls @ 140 mls/hr IV DAILY@1200 [facility]; Protocol Stop: 11/11/20 23:59 Last Infusion: 11/08/20 12:21 Dose: Infused Documented by: Midazolam HCl (Versed) 125 mg in 250 mls @ 12 mls/hr IV .[id number] [facility]; Protocol Stop: 12/08/20 18:14 Last Titration: 11/08/20 20:00 Dose: 6 mg/hr, 12 mls/hr Documented by: Dopamine HCl/Dextrose (Dopamine / D5w) 400 mg in 250 mls @ 25.988 mls/hr IV .Q9H38M [facility]; Protocol Stop: 12/08/20 19:29 Last Titration: 11/08/20 20:48 Dose: 5 mcg/kg/min, 26 mls/hr Documented by: Levalbuterol HCl (Levalbuterol Tartrate 15 Gm Hfa.Aer.Ad) 2 puffs INH Q6H PRN PRN Reason: Shortness Of Breath Stop: 12/04/20 12:09 Midazolam HCl (Midazolam Bolus From Bag) 2 mg IV Q60M PRN PRN Reason: Sedation Stop: 12/08/20 18:07 Ondansetron HCl (Ondansetron Inj 2 Mg/Ml 2 Ml Vial) 4 mg IV Q6H PRN PRN Reason: Nausea Stop: 12/04/20 12:09 Polyethylene Glycol (Polyethylene (Miralax) 17 Gm Pack) 17 gm PO DAILY PRN PRN Reason: Constipation Stop: 12/04/20 12:09 Propofol (Propofol Bolus From Bag) 20 mg IV Q5M PRN PRN Reason: Sedation Stop: 11/08/20 23:20 PG Care Time/CCT Total # of Minutes Spent Total Time Spent with Patient: Total time spent is greater than 50% in coordination of care (as documented) at patient's floor/unit and/or counseling patient: Coding Level of Care Code 58301 Subseq Hosp Care Lvl 3 Diagnoses COVID-19 U07.1 Acute respiratory failure with hypoxia J96.01 Multifocal pneumonia J18.9 Sepsis A41.9 Primary osteoarthritis, unspecified site M19.91 Unspecified asthma J45.909 HTN (hypertension) with goal to be determined I10 HLD (hyperlipidemia) E78.5 DVT prophylaxis Z29.9
[2020-11-09] MEDS: ENOXAPARIN 80 MG/0.8 ML SYR SQ SCH ×3 (00:36→23:26)
[2020-11-09] MEDS: DOPamine / D5W 400 MG/250 ML BAG IV SCH ×6 (03:09→23:21)
[2020-11-09 03:59] LABS: iSTAT Arterial Blood Gas HCO3 37 meg/L (19-24); iSTAT Arterial Blood Gas pCO2 60 mmHg (35-46); iSTAT Arterial Blood Gas pO2 110 mmHg (80-95); iSTAT Carbon Dioxide 39 mmol/L (24-31); iSTAT FiO2 60 %; iSTAT Site Art Line
[2020-11-09] MEDS: fentaNYL DRIP 1,250 MCG/250 ML BAG IV SCH ×5 (04:32→23:47)
--- NOTE | 2020-11-09 08:09 | Electrocardiogram Report ---
Test Reason : Blood Pressure : / mmHG Vent. Rate : 056 BPM Atrial Rate : 056 BPM P-R Int : 192 ms QRS Dur : 102 ms QT Int : 482 ms P-R-T Axes : 073 090 099 degrees QTc Int : 465 ms Sinus bradycardia Rightward axis Nonspecific T wave abnormality Lateral leads Abnormal ECG When compared with ECG of 04-NOV-2020 09:39, Vent. rate has decreased BY 53 BPM T wave inversion now evident in Lateral leads Confirmed by Wai Morton ([id number]) on 11/09/2020 8:09:38 AM Referred By: Kim SCI Confirmed By:Wai Morton
--- NOTE | 2020-11-09 08:12 | Electrocardiogram Report ---
Test Reason : Blood Pressure : / mmHG Vent. Rate : 057 BPM Atrial Rate : 057 BPM P-R Int : 180 ms QRS Dur : 098 ms QT Int : 482 ms P-R-T Axes : 057 085 099 degrees QTc Int : 469 ms Sinus bradycardia T-wave inversion in Lateral leads Abnormal ECG When compared with ECG of 08-NOV-2020 17:43, No significant change was found Confirmed by Wai Morton ([id number]) on 11/09/2020 8:11:31 AM Referred By: Kim HERNÁNDEZ Confirmed By:Wai Morton
[2020-11-09] MEDS: dexAMETHasone 6 MG in SYRINGE 0 ML IV SCH (08:21)
[2020-11-09] MEDS: FAMOTIDINE 20 MG in SYRINGE 3 ML IV SCH ×2 (08:21→21:30)
[2020-11-09] MEDS: ATORVASTATIN 10 MG TAB PO SCH (08:22)
[2020-11-09] MEDS: ASPIRIN 81 MG ECTAB PO SCH (08:22)
--- NOTE | 2020-11-09 08:25 | Electrocardiogram Report ---
Test Reason : Blood Pressure : / mmHG Vent. Rate : 055 BPM Atrial Rate : 055 BPM P-R Int : 178 ms QRS Dur : 102 ms QT Int : 432 ms P-R-T Axes : 050 072 068 degrees QTc Int : 413 ms Sinus bradycardia Peaked T waves(consider ischemia,hyperkalemia,etc.) Otherwise normal ECG When compared with ECG of 08-NOV-2020 18:12, T waves slightly more peaked Otherwise no significant change Confirmed by Wai Morton ([id number]) on 11/09/2020 8:24:39 AM Referred By: Kim SCI Confirmed By:Wai Morton
[2020-11-09 09:10] LABS: Albumin Level 2.2 gm/dl (3.4-5.0); BUN Creatinine Ratio 55.1 (10-20); Calcium 8.7 mg/dl (8.5-10.1); Creatinine Clr Calc Pharmacy 107.6 ml/min; Est GFR (African American) 89.1; Est GFR (Non-African American) 76.9; Magnesium 2.8 mg/dl (1.8-2.4); Potassium 3.8 mmol/L (3.5-5.1)
[2020-11-09 09:15] LABS: Albumin Globulin Ratio 0.4 (0.9-2); Bilirubin,Total 1.3 mg/dl (0.2-1); Globulin 5.4 gm/dl (2.5-4.0); Total Protein 7.6 gm/dl (6.4-8.2)
--- NOTE | 2020-11-09 09:16 | XRay Report ---
SINGLE VIEW CHEST CLINICAL HISTORY: Respiratory failure. FINDINGS: An AP, portable, upright chest radiograph is compared to study dated 11/07/2020. The examin ation is degraded by portable technique and patient rotation. An endotracheal tube, an enteric tube, and a right internal jugular central venous catheter are unchanged in position. The heart is enlarged . Multifocal/diffuse airspace consolidation is again seen throughout both lungs. Small pleural effusi ons are noted. No pneumothorax is seen. The bony thorax is grossly intact. IMPRESSION: 1. Stable lines and tubes. 2. Diffuse/multifocal airspace consolidation throughout both lungs is unchanged from yesterday. Diffe rential considerations remain pulmonary edema and/or multifocal pneumonia. 3. Small pleural effusions. ACT 112: Negative or not required by law. Electronically signed by: Juan Jose Maravilla M.D. 11/09/2020 9:15 AM
[2020-11-09 09:18] LABS: Basophils # (auto) 0.05 K/uL (0-0.2); Basophils % (auto) 0.3 %; Eosinophils # (auto) 0.08 K/uL (0-0.5); Eosinophils % (auto) 0.5 %; Hematocrit (blood only) 41.3 % (42-52); Hemoglobin 15.4 g/dL (14.0-18.0); Immature Granulocytes # (auto) 1.37 K/uL (0.00-0.02); Immature Granulocytes % (auto) 7.9 %; Lymphocytes % (auto) 8.1 %; Mean Corpuscular Hemoglobin 36.1 pg (25-34); Mean Corpuscular Hgb Conc 37.3 g/dL (32-36); Mean Corpuscular Volume 96.7 fL (80-100); Mean Platelet Volume 10.6 fL (7.4-10.4); Monocytes # (auto) 1.69 K/uL (0.11-0.59); Monocytes % (auto) 9.8 %; Neutrophils # (auto) 12.74 K/uL (1.4-6.5); Neutrophils % (auto) 73.4 %; Nucleated RBC # (auto) 0.04 K/uL (0-0); Nucleated RBC % (auto) 0.2 %; Platelet Count 401 K/uL (130-400); RBC Morphology Unremarkable; RDW Coefficient of Variation 14.3 % (11.5-14.5); RDW Standard Deviation 48.2 fL (36.4-46.3); Red Blood Count 4.27 M/uL (4.7-6.1); White Blood Count 17.33 K/uL (4.8-10.8)
[2020-11-09] MEDS: cefTRIAXone SODIUM 2,000 MG in DEXTROSE 5% 50 ML IV SCH (12:17)
--- NOTE | 2020-11-09 14:01 | Cardiology Consultation ---
Date of Consultation November 09, 2020 Assessment & Plan (1) Sinus pause: (2) Bradycardia: (3) COVID-19: (4) Acute respiratory failure with hypoxia: Case discussed with Dr. Romo. Pauses are most consistent with a vasovagal phenomenon secondary to hypoxia. No further pauses overnight, propofol was discontinued yesterday, on no other potentially negative chronotropic agents currently. Recommend transcutaneous pacemaker and atropine are both readily available, agree with low-dose dopamine infusion to reduce bradycardic tendencies and the likelihood of hypoxia induced pauses. No immediate role for transvenous pacing and unlikely he would require permanent pacing once hypoxic stimulus to vasovagal pausing is removed. Continue supportive management of respiratory failure/COVID-19, if further prolonged pauses will need to reevaluate role of temporary transvenous pacing. Dr. Cabral and Dr. Moura are covering over the holiday, please contact if further cardiology input becomes necessary. Thank you for this consultation. History of Present Illness Reason for Consultation: Sinus pause Requesting Physician: Serg Romo MD Attending Physician: Cam Reyes DO History of Present Illness 55-year-old man with acute respiratory failure with hypoxia COVID-19 pneumonia admitted 11/04/2020 who is intubated/ventilated and was noted to have 2 brief episodes of sinus pause/asystole yesterday, the first lasting 3 seconds and the second nearly 12 seconds. Reviewing the monitor strip, his second episode shows sinus bradycardia in the 40s with a sinus pause followed by accelerated idioventricular rhythm for 3 beats then a slow idioventricular rhythm. Both of the pauses apparently occurred during coughing, suctioning, or other hypoxia related events. Allergies Allergy/AdvReac Type Severity Reaction Status Date / Time shellfish derived Allergy Unknown Unknown Unverified 11/04/20 09:56 wool Allergy Unknown Unknown Unverified 11/04/20 09:56 Home Medications Medication Instructions Recorded Confirmed Type acetaminophen [Acetaminophen Extra 500 mg PO TID PRN 11/04/20 11/04/20 History Strength] aspirin 81 mg PO QAM 11/04/20 11/04/20 History atorvastatin 10 mg PO QAM 11/04/20 11/04/20 History azithromycin 250 mg PO DAILY 11/04/20 11/04/20 History celecoxib 200 mg PO QAM 11/04/20 11/04/20 History furosemide [Lasix] 20 mg PO DAILY 11/04/20 11/04/20 History guaifenesin [Mucosa] 400 mg PO TID PRN 11/04/20 11/04/20 History levalbuterol tartrate [Xopenex HFA] 2 inh INHALATION Q6H PRN 11/04/20 11/04/20 History methylprednisolone [Medrol (Sumit)] 4 mg PO UD 11/04/20 11/04/20 History ondansetron 4 mg PO DAILY PRN 11/04/20 11/04/20 History Patient History Medical History Edema HLD (hyperlipidemia) HTN (hypertension) with goal to be determined Morbid obesity due to excess calories Primary osteoarthritis, unspecified site Unspecified asthma Surgical History No pertinent past surgical history Social History Smoking Status: Former smoker Second Hand Exposure: No; Hx Alcohol Use: No Hx Substance Use: No Preferred Language: Mohawk Communication Ability: Effective Beliefs That Will Affect Care: None Current Living Situation: Other Current Living Situation Comment: half-way Feels Safe at Home: Yes Assistive Devices: Oxygen - Continuous Review of Systems Review of Systems: Unobtainable due to cognitive status Physical Exam Physical Exam: Not performed (Covid patient in isolation) Results & Data ([facility]) Laboratory Results Troponins on admission were negative, troponin on 11/05 increased to 0.2, on 1220 increased to 0.5, yesterday troponin values were 0.052 and 0.048. Diagnostic Findings ECG on admission showed sinus tachycardia at 109 bpm and was otherwise unremarkable. ECG yesterday showed sinus bradycardia 56 bpm with some minor lateral T wave inversions. A second ECG yesterday showed sinus bradycardia 57 bpm with no change in the lateral T wave inversions. A third ECG yesterday showed sinus rhythm at 55 bpm with partial resolution of the lateral T wave inversions and slightly more peaked T waves. Chest x-ray today showed diffuse/multifocal airspace consolidation through both lungs which was unchanged from prior. PG Care Time/CCT Total # of Minutes Spent Total Time Spent with Patient: Total time spent is greater than 50% in coordination of care (as documented) at patient's floor/unit and/or counseling patient: Coding Level of Care Code 78983 Initial Inpt Care Lvl 3 Diagnoses Sinus pause I45.5 Bradycardia R00.1 COVID-19 U07.1 Acute respiratory failure with hypoxia J96.01
[2020-11-09] MEDS: PEPTAMEN INTENSE VHP 1.0 CAL 1,000 ML BAG OG SCH (15:04)
--- NOTE | 2020-11-09 15:41 | Critical Care Progress Note ---
Date of Service November 09, 2020 Assessment & Plan (1) Acute hypoxemic respiratory failure: Neurologic: Off propofol since 11/08/2020 evening, off Nimbex 11/08/2020 Continue with midazolam and fentanyl Monitor for delirium Pulmonary: VDRF with ARDS Secondary to COVID-19 pneumonia Continue with lung protective ventilation High PEEP, low tidal volume to keep Plateau < 30 with permissive hypercapnea if need be. Keep O2 saturation greater than 88% Patient was last proned on 09/08/2020 Cardiovascular: Sinus pause -Usually when the patient is coughing. 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 EKG did not show any ST changes. Mild elevation of troponin nonsignificant -Cardiology has been consulted, no acute intervention from the perspective Elevated troponins --> likely secondary to type II [place]. No ST changes. Monitor Gastrointestinal: Elevation of AST and ALT along with mild elevation in CPK Alk phos is within normal limit Could be secondary to antibiotic as well as rhabdo given that he was prone and he is morbidly obese samson. Continue to monitor Renal: Monitor BUNs/creatinine CPK is a bit elevated this could be from proning and compression of the muscles from his weight. Would monitor. Infectious disease: Procalcitonin 1.99. Sputum Gram stain negative. Nasal MRSA negative Follow-up culture --> normal mellissa Continue with antibiotics for superimposed bacterial infection COVID-19 pneumonia Continue with dexamethasone Remdesivir was not given to the patient as patient was 10 days since symptom onset. Hematologic: Elevated white count likely from steroids and possible bacterial infection. Hemoglobin stable. Endocrine: Monitoring glucose closely while on steroids. ICU hyperglycemia protocol CODE STATUS: Full code --Prophylaxis VTE: 0.5 mg/kg twice daily because of morbid obesity and COVID-19 GI: Pepcid Lines: Right IJ 11/06, right radial, intubation 11/06 Diet: Start tube feeds Plan: In/out: -2015, urine output 3850 AB.4/60/110 on 50%, PEEP of 12 Patient is having low-grade fever. T-max 37.8 Continue with antibiotics and dexamethasone. No more sinus pauses overnight. Continue with dopamine at 5 mics increase if need be. We will put the patient temporary pacemaker just in case if he has any other sinus pauses. Because of the sinus pauses unfortunately we cannot use propofol. Patient is obese and midazolam will stay in the system for a long time but we have no other alternative. Glycopyrrolate 1 mg to be given whenever the heart rate is less than 50. Patient has been off Nimbex for more than 24 hours Start the patient on tube feeds. I have personally spent 39 minutes of critical care time in the direct management of this patient. This is a life/limb threatening event. This includes time spent evaluating patient, direct bedside care, chart review, placing orders, interpretation of diagnostic studies, discussion with consultants, patient, and family members, as well as other required patient management activities. This time is exclusive of all separately billable procedures, and teaching time and separate from and in addition to any other critical care service time. Thank you for allowing us to participate in the care of this patient. (2) COVID-19: (3) Multifocal pneumonia: (4) HTN (hypertension) with goal to be determined: (5) Morbid obesity due to excess calories: Admission and Anticipated Discharge Date Admission Date: November 04, 2020 Subjective Patient seen and examined at bedside. No acute distress. Patient's heart rate was in the high 50s to low 60s. Later last evening patient had a sinus pause of 3 and half seconds followed by a sinus pause of 13 seconds which was when he was coughing and gagging. No CPR needed to be performed. He was given 1 dose of 1 mg Ativan and started on dopamine drip. Propofol was discontinued and started on midazolam drip. Patient was RASS -1 at the time of examination. He was on midazolam 5 and fentanyl 150. Review of Systems Review of Systems: Unobtainable due to cognitive status and Unobtainable due to endotracheal tube Physical Exam Physical Exam: Constitutional: No acute distress HEENT: PERRLA, positive ETT Respiratory system: Decreased air entry bilaterally, no wheeze, no rhonchi, positive crackles bilaterally CVS: S1-S2 positive, no murmurs or gallops Abdomen: Soft, nontender, nondistended, positive bowel sounds x4, obese Extremities: +2 pulses bilaterally radialis/ dorsalis pedis, no cyanosis, no edema, tattoos all over the body Neuro: Positive corneal, positive gag, positive pupillary, RASS -1 Psych: Unable to assess G/U: Positive Hickey Skin: no rashes, warm and dry Lymphatic: no cervical or axillary lymphadenopathy Results & Data Results & Data ([facility]) Vital Signs (Past 12 Hours) Vital Signs Temp Pulse Resp BP Pulse Ox 11/09/20 12:00 37.8 C H 62 118/65 91 11/09/20 11:30 37.8 C H 62 91 11/09/20 11:00 37.8 C H 59 L 114/65 90 11/09/20 10:40 59 L 26 H 90 11/09/20 10:30 37.7 C H 59 L 90 11/09/20 10:00 37.7 C H 58 L 112/64 91 11/09/20 09:39 37.7 C H 57 L 120/60 92 11/09/20 09:30 37.7 C H 59 L 92 11/09/20 09:01 37.7 C H 64 79/50 L 92 11/09/20 09:00 37.7 C H 64 91 11/09/20 08:30 37.7 C H 58 L 90 11/09/20 08:00 37.7 C H 53 L 105/54 L 91 11/09/20 07:35 54 L 27 H 90 11/09/20 07:30 37.7 C H 52 L 91 11/09/20 07:00 37.6 C H 54 L 105/59 L 92 11/09/20 06:30 37.6 C H 54 L 91 11/09/20 06:00 37.7 C H 55 L 111/60 90 11/09/20 05:00 37.6 C H 54 L 115/60 92 11/09/20 04:00 37.6 C H 55 L 124/61 91 11/09/20 08:21 11/09/20 08:21 Coding Level of Care Code Critical Care 1st 30-74 mins Diagnoses Acute hypoxemic respiratory failure J96.01 COVID-19 U07.1 Multifocal pneumonia J18.9 HTN (hypertension) with goal to be determined I10 Morbid obesity due to excess calories E66.01 Time Spent (min) 39
[2020-11-09] MEDS: GLYCOPYRROLATE 0.2 MG/ML VIAL IV PRN ×3 (18:29→20:32)
--- NOTE | 2020-11-09 21:00 | Hospitalist Progress Note ---
Date of Service November 09, 2020 Assessment & Plan (1) Sinus pause: due to sedation, hypoxia, vagal tone from coughing keep atropine and pacer pads at bedside try to limit sedation and hypoxic episodes cardiology consulted (2) Bradycardia: see above, Atropine and pacer pads at bedside (3) COVID-19: Continue dexamethasone 6mg IV for 10 day course, day 5 Elevated LFTs therefore remdesivir deferred. 9 days into illness at time of admission therefore convalescent plasma not ordered. severe disease, multifocal changes on CXR, he has respiratory failure requiring mechanical ventilation (4) Acute respiratory failure with hypoxia: patient unable to maintain saturations > 88% on 60L and 100% FiO2 placed on BIPAP all day on 11/05 due to respiratory failure intubated evening of 11/05, placed prone doing well while prone for 16 hours then supine for 8 hours supine past two days sedation per ICU (5) Multifocal pneumonia: treat COVID with dexamethasone Continue cefepime 2g IV Q8H and azithromycin for possible bacterial infection stop after 5-7 days no fever (6) Sepsis: Source - COVID-19 plus possible bacterial multifocal pneumonia. Lactate 2.1, on admission. NSS 1L bolus given in ER. Given hemodynamic stability will defer further IV fluids at this time. Cover for bacterial PNA with cefepime and azithromycin follow blood cultures, no growth, no fever, WBC 12k vitals stable today, main issue is hypoxemia (7) Primary osteoarthritis, unspecified site: Continue celecoxib 200mg PO QAM (8) Unspecified asthma: Unclear diagnosis of this. Patient reports no previous PFTs. No wheezing on exam to suggest asthma exacerbation. (9) HTN (hypertension) with goal to be determined: Hold Lasix given current dehydrated/hypovolemic state. Monitor BP, low normal values (10) HLD (hyperlipidemia): Continue atorvastatin 10 mg p.o. every morning (11) DVT prophylaxis: Lovenox 0.5 mg/kg BID (due to increased BMI and COVID-19 diagnosis) Admission and Anticipated Discharge Date Admission Date: November 04, 2020 Subjective patient with event last night, was having 3 second pauses but then had 12 second sinus arrest d/w cardiology, most likely due to hypoxia, vagal tone from coughing Review of Systems Review of Systems: Unobtainable due to endotracheal tube and Unobtainable due to reduced consciousness Physical Exam Constitutional: well developed, well nourished, + obese and + mechanically ventilated (supine) Respiratory: symmetric chest movement (ventilated) Auscultation: lungs clear to auscultation bilaterally Cardiovascular: RRR, no murmur, no edema Gastrointestinal (Abdomen): normal bowel sounds, soft, nontender, no hepatosplenomegaly Musculoskeletal: Head/Neck/Chest: normocephalic and head atraumatic Extremities: extremities normal to inspection; no cyanosis Skin: no rashes, warm and dry Neurologic: + obtunded; no focal motor deficits Psychiatric: Orientation: + not alert and + not oriented x 3 Results & Data Results & Data ([facility]) Vital Signs (Past 12 Hours) Vital Signs Temp Pulse Resp BP Pulse Ox 11/09/20 19:32 51 L 26 H 93 11/09/20 18:00 37.5 C 51 L 110/59 L 94 11/09/20 17:30 37.5 C 50 L 93 11/09/20 17:01 37.5 C 51 L 109/60 93 11/09/20 17:00 37.5 C 51 L 93 11/09/20 16:37 59 L 26 H 92 11/09/20 16:30 37.5 C 57 L 92 11/09/20 16:00 37.6 C H 55 L 127/67 91 11/09/20 15:30 37.6 C H 63 91 11/09/20 15:00 37.6 C H 56 L 114/64 93 11/09/20 14:30 37.6 C H 54 L 92 11/09/20 14:00 37.6 C H 59 L 122/67 92 11/09/20 13:30 37.7 C H 68 89 L 11/09/20 13:00 37.7 C H 57 L 116/65 92 11/09/20 12:30 37.7 C H 58 L 91 11/09/20 12:00 37.8 C H 62 118/65 91 11/09/20 11:30 37.8 C H 62 91 11/09/20 11:00 37.8 C H 59 L 114/65 90 11/09/20 10:40 59 L 26 H 90 11/09/20 10:30 37.7 C H 59 L 90 11/09/20 10:00 37.7 C H 58 L 112/64 91 11/09/20 09:39 37.7 C H 57 L 120/60 92 11/09/20 09:30 37.7 C H 59 L 92 11/09/20 09:01 37.7 C H 64 79/50 L 92 11/09/20 09:00 37.7 C H 64 91 Laboratory Results Laboratory Results - last 24 hr 11/08/20 11/08/20 11/09/20 22:40 22:41 03:33 WBC RBC Hgb Hct MCV MCH MCHC RDW Std Deviation RDW Coeff of Srikanth Plt Count MPV Immature Gran % (Auto) Neut % (Auto) Lymph % (Auto) Island % (Auto) Eos % (Auto) Baso % (Auto) Neut # (Auto) Lymph # (Auto) [place] # (Auto) Eos # (Auto) Baso # (Auto) Immature Gran # (Auto) Absolute Nucleated RBC Nucleated RBC % (auto) RBC Morphology Sample Site Art Line POC pH 7.40 POC pCO2 60 H POC pO2 110 H POC HCO3 37 H POC Total CO2 39 H POC Base Excess 13.0 H POC ABG O2 Sat 98.0 H Samson Test NA O2 Delivery Device Ventilator POC O2 Rate 26 Minute Ventilation 11.2 POC FiO2 60 Tidal Volume 430 PEEP 12 Sodium Potassium Chloride Carbon Dioxide Anion Gap BUN Creatinine Est Cr Clr Drug Dosing Est GFR ( Amer) Est GFR (Non-Af Amer) BUN/Creatinine Ratio Glucose POC Glucose 121 H Calcium Phosphorus Magnesium Total Bilirubin AST ALT Alkaline Phosphatase Troponin I 0.048 H* Total Protein Albumin Globulin Albumin/Globulin Ratio 11/09/20 11/09/20 11/09/20 06:15 08:21 08:21 WBC 17.33 H RBC 4.27 L Hgb 15.4 Hct 41.3 L MCV 96.7 MCH 36.1 H MCHC 37.3 H RDW Std Deviation 48.2 H RDW Coeff of Srikanth 14.3 Plt Count 401 H MPV 10.6 H Immature Gran % (Auto) 7.9 Neut % (Auto) 73.4 Lymph % (Auto) 8.1 Island % (Auto) 9.8 Eos % (Auto) 0.5 Baso % (Auto) 0.3 Neut # (Auto) 12.74 H Lymph # (Auto) 1.40 Island # (Auto) 1.69 H Eos # (Auto) 0.08 Baso # (Auto) 0.05 Immature Gran # (Auto) 1.37 H Absolute Nucleated RBC 0.04 H Nucleated RBC % (auto) 0.2 RBC Morphology Unremarkable Sample Site POC pH POC pCO2 POC pO2 POC HCO3 POC Total CO2 POC Base Excess POC ABG O2 Sat Samson Test O2 Delivery Device POC O2 Rate Minute Ventilation POC FiO2 Tidal Volume PEEP Sodium 141 Potassium 3.8 Chloride 102 Carbon Dioxide 33 H Anion Gap 6.0 BUN 60 H Creatinine 1.08 Est Cr Clr Drug Dosing 107.6 Est GFR ( Amer) 89.1 Est GFR (Non-Af Amer) 76.9 BUN/Creatinine Ratio 55.1 H Glucose 122 H POC Glucose 110 H Calcium 8.7 Phosphorus 3.0 Magnesium 2.8 H Total Bilirubin 1.3 H AST 131 H ALT 107 H Alkaline Phosphatase 114 Troponin I Total Protein 7.6 Albumin 2.2 L Globulin 5.4 H Albumin/Globulin Ratio 0.4 L 11/09/20 11:46 WBC RBC Hgb Hct MCV MCH MCHC RDW Std Deviation RDW Coeff of Srikanth Plt Count MPV Immature Gran % (Auto) Neut % (Auto) Lymph % (Auto) Island % (Auto) Eos % (Auto) Baso % (Auto) Neut # (Auto) Lymph # (Auto) [place] # (Auto) Eos # (Auto) Baso # (Auto) Immature Gran # (Auto) Absolute Nucleated RBC Nucleated RBC % (auto) RBC Morphology Sample Site POC pH POC pCO2 POC pO2 POC HCO3 POC Total CO2 POC Base Excess POC ABG O2 Sat Samson Test O2 Delivery Device POC O2 Rate Minute Ventilation POC FiO2 Tidal Volume PEEP Sodium Potassium Chloride Carbon Dioxide Anion Gap BUN Creatinine Est Cr Clr Drug Dosing Est GFR ( Amer) Est GFR (Non-Af Amer) BUN/Creatinine Ratio Glucose POC Glucose 135 H Calcium Phosphorus Magnesium Total Bilirubin AST ALT Alkaline Phosphatase Troponin I Total Protein Albumin Globulin Albumin/Globulin Ratio Medications Administered Current Inpatient Medications Acetaminophen (Acetaminophen 325 Mg Tab) 650 mg PO Q4H PRN PRN Reason: Pain or Fever Stop: 12/04/20 12:09 Last Admin: 11/05/20 01:49 Dose: 650 mg Documented by: Al Hydrox/Mg Hydrox/Simethicone (Aluminum/Magnesium Susp 30 Ml Udc) 15 ml PO Q4H PRN PRN Reason: Dyspepsia Stop: 12/04/20 12:09 Aspirin (Aspirin 81 Mg Ectab) 81 mg PO QAM [facility] Stop: 12/05/20 08:59 Last Admin: 11/09/20 08:22 Dose: 81 mg Documented by: Atorvastatin Calcium (Atorvastatin 10 Mg Tab) 10 mg PO [facility] Stop: 12/05/20 08:59 Last Admin: 11/09/20 08:22 Dose: 10 mg Documented by: Enoxaparin Sodium (Enoxaparin 80 Mg/0.8 Ml Syr) 75 mg SQ Q12H [facility] Stop: 12/04/20 12:29 Last Admin: 11/09/20 12:17 Dose: 75 mg Documented by: Fentanyl Citrate (Fentanyl Bolus From Bag) 50 mcg IV Q60M PRN PRN Reason: Pain or Agitation Stop: 11/19/20 23:20 Glycopyrrolate (Glycopyrrolate 0.2 Mg/Ml Vial) 0.1 mg IV Q5M PRN PRN Reason: HR less than 55 Stop: 12/09/20 11:01 Last Admin: 11/09/20 20:32 Dose: 0.1 mg Documented by: Heparin Sodium (Beef Lung) (Heparin 10 Unit/Ml 5 Ml Flush) 5 ml FLUSH PRN PRN PRN Reason: Flush Stop: 12/07/20 22:48 Dexamethasone 6 mg/ Syringe 1.5 mls @ 1 mls/min IV [facility] Stop: 11/14/20 08:59 Last Admin: 11/09/20 08:21 Dose: 1 mls/min Documented by: Fentanyl Citrate (Fentanyl Drip) 1,250 mcg in 250 mls @ 30 mls/hr IV .Q8H20M [facility]; Protocol Stop: 11/19/20 23:29 Last Admin: 11/09/20 13:14 Dose: 150 mcg/hr, 30 mls/hr Documented by: Famotidine 20 mg/ Syringe 5 mls @ 2.5 mls/min IV BID [facility] Stop: 12/06/20 20:59 Last Admin: 11/09/20 08:21 Dose: 2.5 mls/min Documented by: Ceftriaxone Sodium 2,000 mg/ (Dextrose) 70 mls @ 140 mls/hr IV DAILY@1200 [facility]; Protocol Stop: 11/11/20 23:59 Last Infusion: 11/09/20 12:47 Dose: Infused Documented by: Midazolam HCl (Versed) 125 mg in 250 mls @ 0 mls/hr IV .Q0M [facility]; Protocol Stop: 12/08/20 18:14 Last Titration: 11/09/20 12:30 Dose: 0 mg/hr, 0 mls/hr Documented by: Dopamine HCl/Dextrose (Dopamine / D5w) 400 mg in 250 mls @ 38.981 mls/hr IV .Q6H25M [facility]; Protocol Stop: 12/08/20 19:29 Last Admin: 11/09/20 15:54 Dose: 7.5 mcg/kg/min, 39 mls/hr Documented by: Levalbuterol HCl (Levalbuterol Tartrate 15 Gm Hfa.Aer.Ad) 2 puffs INH Q6H PRN PRN Reason: Shortness Of Breath Stop: 12/04/20 12:09 Midazolam HCl (Midazolam Bolus From Bag) 2 mg IV Q60M PRN PRN Reason: Sedation Stop: 12/08/20 18:07 Multivitamins/Minerals (Multi Vit W/Minerals Liquid 15 Ml Udp) 15 ml NG QAM [facility] Stop: 12/10/20 08:59 Nutritional Formula (Peptamen Intense Vhp 1.0 Live 1,000 Ml Bag) 1,000 ml OG UD [facility]; Protocol Stop: 12/09/20 14:44 Last Admin: 11/09/20 15:04 Dose: 1,000 ml Documented by: Ondansetron HCl (Ondansetron Inj 2 Mg/Ml 2 Ml Vial) 4 mg IV Q6H PRN PRN Reason: Nausea Stop: 12/04/20 12:09 Polyethylene Glycol (Polyethylene (Miralax) 17 Gm Pack) 17 gm PO DAILY PRN PRN Reason: Constipation Stop: 12/04/20 12:09 PG Care Time/CCT Total # of Minutes Spent Total Time Spent with Patient: Total time spent is greater than 50% in coordination of care (as documented) at patient's floor/unit and/or counseling patient: Coding Level of Care Code 24923 Subseq Hosp Care Lvl 2 Diagnoses Sinus pause I45.5 Bradycardia R00.1 COVID-19 U07.1 Acute respiratory failure with hypoxia J96.01 Multifocal pneumonia J18.9 Sepsis A41.9 Primary osteoarthritis, unspecified site M19.91 Unspecified asthma J45.909 HTN (hypertension) with goal to be determined I10 HLD (hyperlipidemia) E78.5 DVT prophylaxis Z29.9
[2020-11-10] MEDS: fentaNYL DRIP 1,250 MCG/250 ML BAG IV SCH ×3 (02:18→19:38)
[2020-11-10 06:33] LABS: Hemoglobin 15.4 g/dL (14.0-18.0); Mean Corpuscular Hemoglobin 36.2 pg (25-34); Mean Corpuscular Hgb Conc 36.7 g/dL (32-36); Mean Corpuscular Volume 98.6 fL (80-100); Mean Platelet Volume 10.6 fL (7.4-10.4); Platelet Count 378 K/uL (130-400); RDW Coefficient of Variation 14.4 % (11.5-14.5); RDW Standard Deviation 49.3 fL (36.4-46.3); Red Blood Count 4.26 M/uL (4.7-6.1); White Blood Count 15.61 K/uL (4.8-10.8)
[2020-11-10 06:37] LABS: Allen Test MIDLINE (Pos); Base Excess ABG 7.7 mEq/L (-9-1.8); HCO3 ABG 34 mmol/L (19-24); PCO2 ABG 54 mmHg (35-46); PO2 ABG 78 mmHg (80-95); pH ABG 7.42 (7.35-7.45)
[2020-11-10 07:01] LABS: Basophils # (auto) 0.03 K/uL (0-0.2); Basophils % (auto) 0.2 %; Eosinophils # (auto) 0.07 K/uL (0-0.5); Eosinophils % (auto) 0.4 %; Immature Granulocytes # (auto) 0.97 K/uL (0.00-0.02); Immature Granulocytes % (auto) 6.2 %; Lymphocytes # (auto) 1.28 K/uL (1.2-3.4); Lymphocytes % (auto) 8.2 %; Monocytes # (auto) 1.58 K/uL (0.11-0.59); Monocytes % (auto) 10.1 %; Neutrophils # (auto) 11.68 K/uL (1.4-6.5); Neutrophils % (auto) 74.9 %; RBC Morphology Unremarkable
[2020-11-10 07:08] LABS: BUN Creatinine Ratio 62.2 (10-20); Calcium 8.5 mg/dl (8.5-10.1); Creatinine Clr Calc Pharmacy 133.9 ml/min; Est GFR (African American) 112.6; Est GFR (Non-African American) 97.2; Magnesium 2.5 mg/dl (1.8-2.4); Potassium 4.3 mmol/L (3.5-5.1)
[2020-11-10 07:12] LABS: Phosphorus 2.7 mg/dl (2.5-4.9)
[2020-11-10] MEDS: ASPIRIN 81 MG ECTAB PO SCH (07:33)
[2020-11-10] MEDS: MULTI VIT W/MINERALS LIQUID 15 ML UDP NG SCH (08:10)
[2020-11-10] MEDS: FAMOTIDINE 20 MG in SYRINGE 3 ML IV SCH ×2 (08:10→20:21)
[2020-11-10] MEDS: dexAMETHasone 6 MG in SYRINGE 0 ML IV SCH (08:11)
[2020-11-10] MEDS: ATORVASTATIN 10 MG TAB PO SCH (08:11)
[2020-11-10] MEDS: DOPamine / D5W 400 MG/250 ML BAG IV SCH ×2 (09:49→19:37)
[2020-11-10] MEDS: cefTRIAXone SODIUM 2,000 MG in DEXTROSE 5% 50 ML IV SCH (11:56)
[2020-11-10] MEDS: ENOXAPARIN 80 MG/0.8 ML SYR SQ SCH (11:56)
--- NOTE | 2020-11-10 13:37 | Critical Care Progress Note ---
Date of Service November 10, 2020 Assessment & Plan (1) Acute hypoxemic respiratory failure: Neurologic: Off propofol since 11/08/2020 evening, off Nimbex 11/08/2020 Continue with midazolam and fentanyl Monitor for delirium Pulmonary: VDRF with ARDS Secondary to COVID-19 pneumonia Continue with lung protective ventilation High PEEP, low tidal volume to keep Plateau < 30 with permissive hypercapnea if need be. Keep O2 saturation greater than 88% Patient was last proned on 09/08/2020, off paralysis 11/09/2020 Cardiovascular: Sinus pause -Usually when the patient is coughing. 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 EKG did not show any ST changes. Mild elevation of troponin nonsignificant -Cardiology has been consulted, no acute intervention from the perspective Elevated troponins --> likely secondary to type II [place]. No ST changes. Monitor Gastrointestinal: Elevation of AST and ALT along with mild elevation in CPK Alk phos is within normal limit Could be secondary to antibiotic as well as rhabdo given that he was prone and he is morbidly obese samson. Continue to monitor Renal: Monitor BUNs/creatinine CPK is a bit elevated this could be from proning and compression of the muscles from his weight. Would monitor. Infectious disease: Procalcitonin 1.99. Sputum Gram stain negative. Nasal MRSA negative Follow-up culture --> normal mellissa Continue with antibiotics for superimposed bacterial infection COVID-19 pneumonia Continue with dexamethasone, last dose 11/14/2020 Remdesivir was not given to the patient as patient was 10 days since symptom onset. Hematologic: Elevated white count likely from steroids and possible bacterial infection. Hemoglobin stable. Endocrine: Monitoring glucose closely while on steroids. ICU hyperglycemia protocol CODE STATUS: Full code --Prophylaxis VTE: 0.5 mg/kg twice daily because of morbid obesity and COVID-19 GI: Pepcid Lines: Right IJ 11/06, right radial, intubation 11/06 Diet: On tube feeds Plan: In/out: - 517, urine output 2375 AB.42/54/78 on 50%, PEEP of 10 Continue with antibiotics and dexamethasone. Patient is making good amount of urine this is likely from the dopamine which he was on. We will continue with dopamine as he is still bradycardic. Glycopyrrolate 0.2 mg to be given whenever the heart rate is less than 50. Continue with tube feeds. Off paralytics for 48 hours Try to titrate down on I have personally spent 40 minutes of critical care time in the direct management of this patient. This is a life/limb threatening event. This includes time spent evaluating patient, direct bedside care, chart review, placing orders, interpretation of diagnostic studies, discussion with consultants, patient, and family members, as well as other required patient management activities. This time is exclusive of all separately billable procedures, and teaching time and separate from and in addition to any other critical care service time. Thank you for allowing us to participate in the care of this patient. (2) COVID-19: (3) Multifocal pneumonia: (4) HTN (hypertension) with goal to be determined: (5) Morbid obesity due to excess calories: Admission and Anticipated Discharge Date Admission Date: November 04, 2020 Subjective Patient seen and examined at bedside. Off Nimbex. Patient was saturating 93% on 10 of PEEP. Patient is opening eyes and following commands. He is bradycardic in the 50s. Did not have any sinus pause. He is on dopamine 5. On midazolam and fentanyl Review of Systems Review of Systems: All systems reviewed & are unremarkable except as noted in Subjective Physical Exam Physical Exam: Constitutional: No acute distress HEENT: PERRLA, positive ETT Respiratory system: Decreased air entry bilaterally, no wheeze, no rhonchi, positive crackles bilaterally CVS: S1-S2 positive, no murmurs or gallops Abdomen: Soft, nontender, nondistended, positive bowel sounds x4, obese Extremities: +2 pulses bilaterally radialis/ dorsalis pedis, no cyanosis, no ed kristen, tattoos all over the body Neuro: Positive corneal, positive gag, positive pupillary, RASS -1 Psych: Unable to assess G/U: Positive Hickey Skin: no rashes, warm and dry Lymphatic: no cervical or axillary lymphadenopathy Results & Data Results & Data ([facility]) Vital Signs (Past 12 Hours) Vital Signs Temp Pulse Resp BP Pulse Ox 11/10/20 12:00 37.4 C 54 L 133/78 92 11/10/20 11:35 23 11/10/20 11:30 37.5 C 55 L 138/78 92 11/10/20 11:00 37.5 C 53 L 135/77 92 11/10/20 10:30 37.4 C 51 L 139/78 92 11/10/20 10:00 37.4 C 54 L 132/73 93 11/10/20 09:30 37.4 C 63 118/73 93 11/10/20 09:00 37.4 C 58 L 120/71 93 11/10/20 08:30 37.4 C 51 L 127/73 93 11/10/20 08:00 37.4 C 58 L 27 H 121/76 94 11/10/20 07:30 37.4 C 53 L 126/71 94 11/10/20 07:00 37.4 C 53 L 123/75 94 11/10/20 03:54 53 L 26 H 94 11/10/20 06:14 11/10/20 06:14 Coding Level of Care Code Critical Care 1st 30-74 mins Diagnoses Acute hypoxemic respiratory failure J96.01 COVID-19 U07.1 Multifocal pneumonia J18.9 HTN (hypertension) with goal to be determined I10 Morbid obesity due to excess calories E66.01 Time Spent (min) 40
--- NOTE | 2020-11-10 17:14 | Hospitalist Progress Note ---
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 9 days into illness at time of admission therefore convalescent plasma not ordered. severe disease, multifocal changes on CXR, he has respiratory failure requiring mechanical ventilation (4) Acute respiratory failure with hypoxia: patient unable to maintain saturations > 88% on 60L and 100% FiO2 placed on BIPAP all day on 11/05 due to respiratory failure intubated evening of 11/05, placed prone doing well while prone for 16 hours then supine for 8 hours was prone on 11/08, has been supine since paralytics off since 11/09 on Versed and Fentanyl (5) Multifocal pneumonia: treat COVID with dexamethasone Continue cefepime 2g IV Q8H and azithromycin for possible bacterial infection stop after 5-7 days no fever (6) Sepsis: Source - COVID-19 plus possible bacterial multifocal pneumonia. Lactate 2.1, on admission. NSS 1L bolus given in ER. Given hemodynamic stability will defer further IV fluids at this time. Cover for bacterial PNA with cefepime and azithromycin follow blood cultures, no growth, no fever, WBC 12k vitals stable today, main issue is hypoxemia (7) Primary osteoarthritis, unspecified site: Continue celecoxib 200mg PO QAM (8) Unspecified asthma: Unclear diagnosis of this. Patient reports no previous PFTs. No wheezing on exam to suggest asthma exacerbation. (9) HTN (hypertension) with goal to be determined: Hold Lasix given current dehydrated/hypovolemic state. Monitor BP, low normal values (10) HLD (hyperlipidemia): Continue atorvastatin 10 mg p.o. every morning (11) DVT prophylaxis: Lovenox 0.5 mg/kg BID (due to increased BMI and COVID-19 diagnosis) Admission and Anticipated Discharge Date Admission Date: November 04, 2020 Subjective no major sinus pauses or other major issues past 24 hours Review of Systems Review of Systems: Unobtainable due to endotracheal tube and Unobtainable due to reduced consciousness Physical Exam Constitutional: well developed, well nourished, + obese and + mechanically ventilated (supine) Respiratory: symmetric chest movement (ventilated) Auscultation: lungs clear to auscultation bilaterally Cardiovascular: Rate/Rhythm: regular rhythm and + bradycardic Heart Sounds: normal S1 and normal S2; no murmur Vessels: no JVD Extremities: normal capillary refill; no edema Gastrointestinal (Abdomen): normal bowel sounds, soft, nontender, no hepatosplenomegaly Musculoskeletal: Head/Neck/Chest: normocephalic and head atraumatic Extremities: extremities normal to inspection; no cyanosis Skin: no rashes, warm and dry Neurologic: + obtunded; no focal motor deficits Psychiatric: Orientation: + not alert and + not oriented x 3 Lymphatic: no cervical or axillary lymphadenopathy Results & Data Results & Data ([facility]) Vital Signs (Past 12 Hours) Vital Signs Temp Pulse Resp BP Pulse Ox 11/10/20 12:00 37.4 C 54 L 133/78 92 11/10/20 11:35 23 11/10/20 11:30 37.5 C 55 L 138/78 92 11/10/20 11:00 37.5 C 53 L 135/77 92 11/10/20 10:30 37.4 C 51 L 139/78 92 11/10/20 10:00 37.4 C 54 L 132/73 93 11/10/20 09:30 37.4 C 63 118/73 93 11/10/20 09:00 37.4 C 58 L 120/71 93 11/10/20 08:30 37.4 C 51 L 127/73 93 11/10/20 08:00 37.4 C 58 L 27 H 121/76 94 11/10/20 07:30 37.4 C 53 L 126/71 94 11/10/20 07:00 37.4 C 53 L 123/75 94 Laboratory Results Laboratory Results - last 24 hr 11/10/20 11/10/20 11/10/20 06:14 06:14 06:17 WBC 15.61 H RBC 4.26 L Hgb 15.4 Hct 42.0 MCV 98.6 MCH 36.2 H MCHC 36.7 H RDW Std Deviation 49.3 H RDW Coeff of Srikanth 14.4 Plt Count 378 MPV 10.6 H Immature Gran % (Auto) 6.2 Neut % (Auto) 74.9 Lymph % (Auto) 8.2 [place] % (Auto) 10.1 Eos % (Auto) 0.4 Baso % (Auto) 0.2 Neut # (Auto) 11.68 H Lymph # (Auto) 1.28 [place] # (Auto) 1.58 H Eos # (Auto) 0.07 Baso # (Auto) 0.03 Immature Gran # (Auto) 0.97 H RBC Morphology Unremarkable ABG pH 7.42 ABG pCO2 54 H ABG pO2 78 L ABG HCO3 34 H ABG O2 Saturation 96.0 H ABG Base Excess 7.7 H Samson Test MIDLINE Barometric Pressure 722.5 Oxygen Given 50 Sodium 143 Potassium 4.3 Chloride 105 Carbon Dioxide 34 H Anion Gap 4.0 BUN 54 H Creatinine 0.87 Est Cr Clr Drug Dosing 133.9 Est GFR ( Amer) 112.6 Est GFR (Non-Af Amer) 97.2 BUN/Creatinine Ratio 62.2 H Glucose 114 H Calcium 8.5 Phosphorus 2.7 Magnesium 2.5 H Total Creatine Kinase 178 Medications Administered Current Inpatient Medications Acetaminophen (Acetaminophen 325 Mg Tab) 650 mg PO Q4H PRN PRN Reason: Pain or Fever Stop: 12/04/20 12:09 Last Admin: 11/05/20 01:49 Dose: 650 mg Documented by: Al Hydrox/Mg Hydrox/Simethicone (Aluminum/Magnesium Susp 30 Ml Udc) 15 ml PO Q4H PRN PRN Reason: Dyspepsia Stop: 12/04/20 12:09 Aspirin (Aspirin 81 Mg Ectab) [address] [facility] Stop: 12/05/20 08:59 Last Admin: 11/10/20 07:33 Dose: Not Given Documented by: Atorvastatin Calcium (Atorvastatin 10 Mg Tab) 10 mg PO QAM [facility] Stop: 12/05/20 08:59 Last Admin: 11/10/20 08:11 Dose: 10 mg Documented by: Enoxaparin Sodium (Enoxaparin 80 Mg/0.8 Ml Syr) 75 mg SQ Q12H [facility] Stop: 12/04/20 12:29 Last Admin: 11/10/20 11:56 Dose: 75 mg Documented by: Fentanyl Citrate (Fentanyl Bolus From Bag) 50 mcg IV Q60M PRN PRN Reason: Pain or Agitation Stop: 11/19/20 23:20 Glycopyrrolate (Glycopyrrolate 0.2 Mg/Ml Vial) 0.1 mg IV Q5M PRN PRN Reason: HR less than 55 Stop: 12/09/20 11:01 Last Admin: 11/09/20 20:32 Dose: 0.1 mg Documented by: Heparin Sodium (Beef Lung) (Heparin 10 Unit/Ml 5 Ml Flush) 5 ml FLUSH PRN PRN PRN Reason: Flush Stop: 12/07/20 22:48 Dexamethasone 6 mg/ Syringe 1.5 mls @ 1 mls/min IV QAM [facility] Stop: 11/14/20 08:59 Last Admin: 11/10/20 08:11 Dose: 1 mls/min Documented by: Fentanyl Citrate (Fentanyl Drip) 1,250 mcg in 250 mls @ 25 mls/hr IV .Q10H [facility]; Protocol Stop: 11/19/20 23:29 Last Titration: 11/10/20 15:43 Dose: 125 mcg/hr, 25 mls/hr Documented by: Famotidine 20 mg/ Syringe 5 mls @ 2.5 mls/min IV BID [facility] Stop: 12/06/20 20:59 Last Admin: 11/10/20 08:10 Dose: 2.5 mls/min Documented by: Ceftriaxone Sodium 2,000 mg/ (Dextrose) 70 mls @ 140 mls/hr IV DAILY@1200 [facility]; Protocol Stop: 11/11/20 23:59 Last Infusion: 11/10/20 12:28 Dose: Infused Documented by: Midazolam HCl (Versed) 125 mg in 250 mls @ 0 mls/hr IV .Q0M [facility]; Protocol Stop: 12/08/20 18:14 Last Titration: 11/10/20 12:11 Dose: Infused Documented by: Dopamine HCl/Dextrose (Dopamine / D5w) 400 mg in 250 mls @ 25.988 mls/hr IV .Q9H38M [facility]; Protocol Stop: 12/08/20 19:29 Last Titration: 11/10/20 15:20 Dose: 5 mcg/kg/min, 26 mls/hr Documented by: Levalbuterol HCl (Levalbuterol Tartrate 15 Gm Hfa.Aer.Ad) 2 puffs INH Q6H PRN PRN Reason: Shortness Of Breath Stop: 12/04/20 12:09 Midazolam HCl (Midazolam Bolus From Bag) 2 mg IV Q60M PRN PRN Reason: Sedation Stop: 12/08/20 18:07 Multivitamins/Minerals (Multi Vit W/Minerals Liquid 15 Ml Udp) 15 ml NG QAM [facility] Stop: 12/10/20 08:59 Last Admin: 11/10/20 08:10 Dose: 15 ml Documented by: Nutritional Formula (Peptamen Intense Vhp 1.0 Live 1,000 Ml Bag) 1,000 ml OG UD [facility]; Protocol Stop: 12/09/20 14:44 Last Admin: 11/09/20 15:04 Dose: 1,000 ml Documented by: Ondansetron HCl (Ondansetron Inj 2 Mg/Ml 2 Ml Vial) 4 mg IV Q6H PRN PRN Reason: Nausea Stop: 12/04/20 12:09 Polyethylene Glycol (Polyethylene (Miralax) 17 Gm Pack) 17 gm PO DAILY PRN PRN Reason: Constipation Stop: 12/04/20 12:09 PG Care Time/CCT Total # of Minutes Spent Total Time Spent with Patient: Total time spent is greater than 50% in coordination of care (as documented) at patient's floor/unit and/or counseling patient: Coding Level of Care Code 19770 Subseq Hosp Care Lvl 2 Diagnoses Sinus pause I45.5 Bradycardia R00.1 COVID-19 U07.1 Acute respiratory failure with hypoxia J96.01 Multifocal pneumonia J18.9 Sepsis A41.9 Primary osteoarthritis, unspecified site M19.91 Unspecified asthma J45.909 HTN (hypertension) with goal to be determined I10 HLD (hyperlipidemia) E78.5 DVT prophylaxis Z29.9
[2020-11-10] MEDS: MIDAZOLAM HCL 125 MG/250 ML BAG IV SCH (18:01)
[2020-11-10] MEDS: GLYCOPYRROLATE 0.2 MG/ML VIAL IV PRN ×3 (19:38→20:54)
[2020-11-11] MEDS: ENOXAPARIN 80 MG/0.8 ML SYR SQ SCH ×3 (00:35→22:56)
[2020-11-11] MEDS: DOPamine / D5W 400 MG/250 ML BAG IV SCH ×2 (05:26→15:20)
[2020-11-11] MEDS: fentaNYL DRIP 1,250 MCG/250 ML BAG IV SCH ×2 (05:27→16:11)
[2020-11-11 07:09] LABS: Hematocrit (blood only) 43.3 % (42-52); Hemoglobin 14.8 g/dL (14.0-18.0); Mean Corpuscular Hemoglobin 33.9 pg (25-34); Mean Corpuscular Hgb Conc 34.2 g/dL (32-36); Mean Corpuscular Volume 99.1 fL (80-100); Mean Platelet Volume 10.7 fL (7.4-10.4); Platelet Count 355 K/uL (130-400); RDW Coefficient of Variation 14.2 % (11.5-14.5); Red Blood Count 4.37 M/uL (4.7-6.1); White Blood Count 13.31 K/uL (4.8-10.8)
[2020-11-11 07:38] LABS: Basophils # (auto) 0.02 K/uL (0-0.2); Basophils % (auto) 0.2 %; Eosinophils # (auto) 0.09 K/uL (0-0.5); Eosinophils % (auto) 0.7 %; Immature Granulocytes # (auto) 0.71 K/uL (0.00-0.02); Immature Granulocytes % (auto) 5.3 %; Lymphocytes % (auto) 7.5 %; Monocytes # (auto) 1.09 K/uL (0.11-0.59); Monocytes % (auto) 8.2 %; Neutrophils % (auto) 78.1 %
[2020-11-11 07:46] LABS: Albumin Level 2.3 gm/dl (3.4-5.0); BUN Creatinine Ratio 67.3 (10-20); Calcium 8.7 mg/dl (8.5-10.1); Creatinine Clr Calc Pharmacy 144.8 ml/min; Est GFR (African American) 117.2; Est GFR (Non-African American) 101.1; Magnesium 2.3 mg/dl (1.8-2.4); Potassium 4.6 mmol/L (3.5-5.1)
[2020-11-11 07:50] LABS: Bilirubin Direct 1.1 mg/dl (0-0.2); Bilirubin,Total 1.7 mg/dl (0.2-1); Phosphorus 2.8 mg/dl (2.5-4.9)
[2020-11-11] MEDS: MULTI VIT W/MINERALS LIQUID 15 ML UDP NG SCH (09:14)
[2020-11-11] MEDS: dexAMETHasone 6 MG in SYRINGE 0 ML IV SCH (09:14)
[2020-11-11] MEDS: ATORVASTATIN 10 MG TAB PO SCH (09:15)
[2020-11-11] MEDS: ASPIRIN 81 MG ECTAB PO SCH (09:15)
[2020-11-11] MEDS: FAMOTIDINE 20 MG in SYRINGE 3 ML IV SCH ×2 (09:15→21:24)
[2020-11-11] MEDS: cefTRIAXone SODIUM 2,000 MG in DEXTROSE 5% 50 ML IV SCH (12:36)
--- NOTE | 2020-11-11 16:48 | Critical Care Progress Note ---
Date of Service November 11, 2020 Assessment & Plan (1) Acute hypoxemic respiratory failure: Neurologic: Off propofol since 11/08/2020 evening, off Nimbex 11/08/2020 Continue with midazolam and fentanyl Monitor for delirium Pulmonary: VDRF with ARDS Secondary to COVID-19 pneumonia Continue with lung protective ventilation High PEEP, low tidal volume to keep Plateau < 30 with permissive hypercapnea if need be. Keep O2 saturation greater than 88% Patient was last proned on 09/08/2020, off paralysis 11/09/2020 Cardiovascular: Sinus pause -Usually when the patient is coughing. 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 EKG did not show any ST changes. Mild elevation of troponin nonsignificant -Cardiology has been consulted, no acute intervention from the perspective Elevated troponins --> likely secondary to type II [place]. No ST changes. Monitor Gastrointestinal: Elevation of AST and ALT along with mild elevation in CPK Could be secondary to antibiotic as well as rhabdo given that he was prone and he is morbidly obese samson. Continue to monitor Renal: Monitor BUNs/creatinine CPK is a bit elevated this could be from proning and compression of the muscles from his weight. Would monitor. Infectious disease: Procalcitonin 1.99. Sputum Gram stain negative. Nasal MRSA negative, Rocephin last dose 11/11/2020 Follow-up culture --> normal mellissa Continue with antibiotics for superimposed bacterial infection COVID-19 pneumonia Continue with dexamethasone, last dose 11/14/2020 Remdesivir was not given to the patient as patient was 10 days since symptom onset. Hematologic: Elevated white count likely from steroids and possible bacterial infection. Hemoglobin stable. Endocrine: Monitoring glucose closely while on steroids. ICU hyperglycemia protocol CODE STATUS: Full code --Prophylaxis VTE: 0.5 mg/kg twice daily because of morbid obesity and COVID-19 GI: Pepcid Lines: Right IJ 11/06, right radial, intubation 11/06 Diet: On tube feeds Plan: In/out: -106, urine output 2150 Patient's LFTs are still trending up. We will keep a close eye on it. Continue with dopamine for the bradycardia the patient is having. Bradycardia is again multifactorial likely from the sedation midazolam/fentanyl as well as, cardiomyopathy. Dopamine is also helping with diuresis. I went down on PEEP to 8 today and FiO2 40%. We will be to go down on PEEP to 5 and if the patient is doing well then we will try extubation trial tomorrow. I have personally spent 41 minutes of critical care time in the direct management of this patient. This is a life/limb threatening event. This includes time spent evaluating patient, direct bedside care, chart review, placing orders, interpretation of diagnostic studies, discussion with consultants, patient, and family members, as well as other required patient management activities. This time is exclusive of all separately billable procedures, and teaching time and separate from and in addition to any other critical care service time. Thank you for allowing us to participate in the care of this patient. (2) COVID-19: (3) Multifocal pneumonia: (4) HTN (hypertension) with goal to be determined: (5) Morbid obesity due to excess calories: Admission and Anticipated Discharge Date Admission Date: November 04, 2020 Review of Systems Review of Systems: Unobtainable due to cognitive status and Unobtainable due to endotracheal tube Physical Exam Physical Exam: Constitutional: No acute distress HEENT: PERRLA, positive ETT Respiratory system: Decreased air entry bilaterally, no wheeze, no rhonchi, positive crackles bilaterally CVS: S1-S2 positive, no murmurs or gallops Abdomen: Soft, nontender, nondistended, positive bowel sounds x4, obese Extremities: +2 pulses bilaterally radialis/ dorsalis pedis, no cyanosis, no edema, tattoos all over the body Neuro: Positive corneal, positive gag, positive pupillary, RASS -1 Psych: Unable to assess G/U: Positive [place] Skin: no rashes, warm and dry Lymphatic: no cervical or axillary lymphadenopathy Results & Data Results & Data ([facility]) Vital Signs (Past 12 Hours) Vital Signs Temp Pulse Resp BP Pulse Ox 11/11/20 15:26 50 L 23 93 11/11/20 13:30 37.4 C 52 L 143/79 H 94 11/11/20 13:00 37.4 C 51 L 140/80 94 11/11/20 12:30 37.4 C 54 L 151/77 H 92 11/11/20 12:05 51 L 22 92 11/11/20 12:00 37.4 C 51 L 132/76 92 11/11/20 11:30 37.4 C 49 L 131/77 92 11/11/20 11:00 37.4 C 51 L 130/75 93 11/11/20 10:30 37.4 C 53 L 136/73 93 11/11/20 10:00 37.4 C 51 L 130/74 94 11/11/20 09:30 37.4 C 49 L 143/79 H 94 11/11/20 09:00 37.3 C 50 L 130/76 94 11/11/20 08:30 37.3 C 50 L 131/74 93 11/11/20 08:10 49 L 22 93 11/11/20 08:00 37.3 C 53 L 125/73 93 11/11/20 07:30 37.3 C 50 L 121/67 94 11/11/20 07:00 37.3 C 49 L 124/72 94 11/11/20 05:00 37.3 C 45 L 127/70 94 11/11/20 06:38 11/11/20 06:38 Coding Level of Care Code Critical Care 1st 30-74 mins Diagnoses Acute hypoxemic respiratory failure J96.01 COVID-19 U07.1 Multifocal pneumonia J18.9 HTN (hypertension) with goal to be determined I10 Morbid obesity due to excess calories E66.01 Time Spent (min) 41
--- NOTE | 2020-11-11 17:03 | Hospitalist Progress Note ---
Date of Service November 11, 2020 Assessment & Plan (1) COVID-19: Continue dexamethasone 6mg IV initialted 11/05 Elevated LFTs therefore remdesivir deferred. 9 days into illness at time of admission therefore convalescent plasma not ordered. 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 (4) Acute respiratory failure with hypoxia: patient unable to maintain saturations > 88% on 60L and 100% FiO2 placed on BIPAP all day on 11/05 due to respiratory failure intubated evening of 11/05, placed prone doing well while prone for 16 hours then supine for 8 hours was prone on 11/08, has been supine since paralytics off since 11/09 on Versed and Fentanyl (5) Multifocal pneumonia: treat COVID with dexamethasone Continue cefepime 2g IV Q8H and azithromycin for possible bacterial infection complete 7 days no fever, but low grade temp (6) Sepsis: Source - COVID-19 plus possible bacterial multifocal pneumonia. Lactate 2.1, on admission. NSS 1L bolus given in ER. Given hemodynamic stability will defer further IV fluids at this time. Cover for bacterial PNA with cefepime and azithromycin follow blood cultures, no growth, (7) Primary osteoarthritis, unspecified site: Continue celecoxib 200mg PO QAM (8) Unspecified asthma: Unclear diagnosis of this. Patient reports no previous PFTs. No wheezing on exam to suggest asthma exacerbation. (9) HTN (hypertension) with goal to be determined: Hold Lasix given current dehydrated/hypovolemic state. Monitor BP, low normal values (10) HLD (hyperlipidemia): Continue atorvastatin 10 mg p.o. every morning (11) DVT prophylaxis: Lovenox 0.5 mg/kg BID (due to increased BMI and COVID-19 diagnosis) (12) Transaminitis: actually all LFT tests are elevated but minorly, maybe to to severity of illness Admission and Anticipated Discharge Date Admission Date: November 04, 2020 Subjective Pt is sedated and intubated Review of Systems Review of Systems: Unobtainable due to endotracheal tube Physical Exam Physical Exam: The patient appeared seriously ill Vital signs as documented. Lungs are worse bilaterally with rales and poor air movement Cardiac exam, Rhythm is regular.. No major sinus pauses seen Abdominal exam reveals normal bowel sounds, soft Extremities are nonedematous Neurologic exam is sedate Skin is without bruises or rashes Results & Data Results & Data ([facility]) Vital Signs (Past 12 Hours) Vital Signs Temp Pulse Resp BP Pulse Ox 11/11/20 15:26 50 L 23 93 11/11/20 13:30 99.3 F 52 L 143/79 H 94 11/11/20 13:00 99.3 F 51 L 140/80 94 11/11/20 12:30 99.3 F 54 L 151/77 H 92 11/11/20 12:05 51 L 22 92 11/11/20 12:00 99.3 F 51 L 132/76 92 11/11/20 11:30 99.3 F 49 L 131/77 92 11/11/20 11:00 99.3 F 51 L 130/75 93 11/11/20 10:30 99.3 F 53 L 136/73 93 11/11/20 10:00 99.3 F 51 L 130/74 94 11/11/20 09:30 99.3 F 49 L 143/79 H 94 11/11/20 09:00 99.1 F 50 L 130/76 94 11/11/20 08:30 99.1 F 50 L 131/74 93 11/11/20 08:10 49 L 22 93 11/11/20 08:00 99.1 F 53 L 125/73 93 11/11/20 07:30 99.1 F 50 L 121/67 94 11/11/20 07:00 99.1 F 49 L 124/72 94 11/11/20 05:00 99.1 F 45 L 127/70 94 PG Care Time/CCT Total # of Minutes Spent Total Time Spent with Patient: Total time spent is greater than 50% in coordination of care (as documented) at patient's floor/unit and/or counseling patient: Coding Level of Care Code 12659 Subseq Hosp Care Lvl 3 Diagnoses COVID-19 U07.1 Bradycardia R00.1 Sinus pause I45.5 Acute respiratory failure with hypoxia J96.01 Multifocal pneumonia J18.9 Sepsis A41.9 Primary osteoarthritis, unspecified site M19.91 Unspecified asthma J45.909 HTN (hypertension) with goal to be determined I10 HLD (hyperlipidemia) E78.5 DVT prophylaxis Z29.9 Transaminitis R74.01
[2020-11-11] MEDS: GLYCOPYRROLATE 0.2 MG/ML VIAL IV PRN ×2 (17:37→17:51)
[2020-11-11] MEDS: MIDAZOLAM HCL 125 MG/250 ML BAG IV SCH (20:32)
[2020-11-12] MEDS: DOPamine / D5W 400 MG/250 ML BAG IV SCH ×3 (00:56→20:11)
[2020-11-12] MEDS: fentaNYL DRIP 1,250 MCG/250 ML BAG IV SCH ×3 (04:31→14:42)
[2020-11-12 05:12] LABS: iSTAT Art Bld Gas pCO2 Correct 50 mmHg (35-46); iSTAT Art Bld Gas pH Corrected 7.415 (7.35-7.45); iSTAT Arterial Blood Gas HCO3 32 meg/L (19-24); iSTAT Arterial Blood Gas pCO2 50 mmHg (35-46); iSTAT Arterial Blood Gas pH 7.42 (7.35-7.45); iSTAT Arterial Blood Gas pO2 64 mmHg (80-95); iSTAT Arterial Blood Gas pO2 C 66; iSTAT Carbon Dioxide 34 mmol/L (24-31); iSTAT FiO2 40 %; iSTAT Hematocrit 43 % (42-52); iSTAT Hemoglobin 14.6 g/dl (14.0-18.0); iSTAT Potassium 4.4 mmol/L (3.3-5.0); iSTAT Site Art Line; iSTAT Sodium 140 mmol/L (135-144)
[2020-11-12] MEDS: PEPTAMEN INTENSE VHP 1.0 CAL 1,000 ML BAG OG SCH (05:28)
[2020-11-12 06:41] LABS: Basophils # (auto) 0.01 K/uL (0-0.2); Basophils % (auto) 0.1 %; Eosinophils # (auto) 0.06 K/uL (0-0.5); Eosinophils % (auto) 0.5 %; Hematocrit (blood only) 40.8 % (42-52); Hemoglobin 14.6 g/dL (14.0-18.0); Immature Granulocytes # (auto) 0.23 K/uL (0.00-0.02); Immature Granulocytes % (auto) 1.9 %; Lymphocytes # (auto) 0.97 K/uL (1.2-3.4); Lymphocytes % (auto) 7.9 %; Mean Corpuscular Hemoglobin 34.8 pg (25-34); Mean Corpuscular Hgb Conc 35.8 g/dL (32-36); Mean Corpuscular Volume 97.1 fL (80-100); Mean Platelet Volume 10.8 fL (7.4-10.4); Monocytes # (auto) 1.16 K/uL (0.11-0.59); Monocytes % (auto) 9.4 %; Neutrophils # (auto) 9.92 K/uL (1.4-6.5); Neutrophils % (auto) 80.2 %; Platelet Count 399 K/uL (130-400); RDW Coefficient of Variation 14.3 % (11.5-14.5); RDW Standard Deviation 48.2 fL (36.4-46.3); White Blood Count 12.35 K/uL (4.8-10.8)
[2020-11-12 07:15] LABS: Albumin Level 2.3 gm/dl (3.4-5.0); BUN Creatinine Ratio 64.9 (10-20); Bilirubin Direct 0.8 mg/dl (0-0.2); Calcium 8.6 mg/dl (8.5-10.1); Creatinine Clr Calc Pharmacy 154.4 ml/min; Est GFR (African American) 119.7; Est GFR (Non-African American) 103.3; Magnesium 2.4 mg/dl (1.8-2.4); Potassium 4.3 mmol/L (3.5-5.1)
[2020-11-12 07:18] LABS: Bilirubin,Total 1.4 mg/dl (0.2-1); Phosphorus 3.1 mg/dl (2.5-4.9); Total Protein 7.3 gm/dl (6.4-8.2)
--- NOTE | 2020-11-12 07:22 | Hospitalist Progress Note ---
Date of Service November 12, 2020 Assessment & Plan (1) COVID-19: Continue dexamethasone 6mg IV initiated 11/05 Elevated LFTs therefore remdesivir deferred. 9 days into illness at time of admission therefore convalescent plasma not ordered. 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 extubated 11/12 to Bipap (5) Multifocal pneumonia: treat COVID with dexamethasone completed azithromycin on ceftriaxone no fever, but low grade temp (6) Sepsis: Source - COVID-19 plus possible bacterial multifocal pneumonia. Lactate 2.1, on admission. NSS 1L bolus given in ER. Given hemodynamic stability will defer further IV fluids at this time. Cover for bacterial PNA with cefepime and azithromycin follow blood cultures, no growth, (7) Primary osteoarthritis, unspecified site: Continue celecoxib 200mg PO QAM (8) Unspecified asthma: Unclear diagnosis of this. Patient reports no previous PFTs. No wheezing on exam to suggest asthma exacerbation. (9) HTN (hypertension) with goal to be determined: Hold Lasix given current dehydrated/hypovolemic state. Monitor BP, low normal values (10) HLD (hyperlipidemia): Continue atorvastatin 10 mg p.o. every morning (11) DVT prophylaxis: Lovenox 0.5 mg/kg BID (due to increased BMI and COVID-19 diagnosis) (12) Transaminitis: actually all LFT tests are elevated but minorly, maybe to to severity of illness. slowly trending upward Admission and Anticipated Discharge Date Admission Date: November 04, 2020 Subjective Patient is extubated by pulmonary medicine is on BiPAP therapy all he can tell me as he wants to get the k out of here. He is in mild respiratory distress he is tachypneic he offers no focal complaints of pain Review of Systems Review of Systems: Unobtainable due to cognitive status Physical Exam Physical Exam: The patient appeared seriously ill Vital signs as documented. Lungs are worse bilaterally with rales and poor air movement Cardiac exam, Rhythm is regular.. No major sinus pauses seen Abdominal exam reveals normal bowel sounds, soft Extremities are nonedematous Neurologic exam is sedate Skin is without bruises or rashes Results & Data Results & Data ([facility]) Vital Signs (Past 12 Hours) Vital Signs Temp Pulse Resp BP Pulse Ox 11/12/20 04:48 48 L 22 92 11/12/20 04:30 99.3 F 48 L 124/68 92 11/12/20 04:00 99.3 F 47 L 124/72 92 11/12/20 03:30 99.3 F 46 L 128/70 92 11/12/20 03:00 99.3 F 47 L 126/67 92 11/12/20 02:30 99.3 F 48 L 131/69 92 11/12/20 01:30 99.3 F 50 L 138/78 91 11/12/20 01:00 99.5 F 58 L 132/74 92 11/12/20 00:30 99.3 F 48 L 136/76 92 11/12/20 00:00 99.3 F 47 L 138/75 92 11/11/20 23:50 51 L 23 92 11/11/20 23:30 99.3 F 47 L 137/72 92 11/11/20 23:00 99.3 F 46 L 139/75 92 11/11/20 22:30 99.3 F 45 L 138/76 92 11/11/20 22:00 99.3 F 46 L 144/79 H 91 11/11/20 21:30 99.3 F 45 L 140/77 91 11/11/20 21:06 46 L 23 90 11/11/20 21:00 99.3 F 50 L 148/80 H 94 11/11/20 20:30 99.3 F 49 L 140/79 94 11/11/20 20:00 99.3 F 48 L 143/79 H 93 11/11/20 19:30 99.3 F 49 L 138/74 93 PG Care Time/CCT Total # of Minutes Spent Total Time Spent with Patient: Total time spent is greater than 50% in coordination of care (as documented) at patient's floor/unit and/or counseling patient: Coding Level of Care Code 74742 Subseq Hosp Care Lvl 3 Diagnoses COVID-19 U07.1 Bradycardia R00.1 Sinus pause I45.5 Acute respiratory failure with hypoxia J96.01 Multifocal pneumonia J18.9 Sepsis A41.9 Primary osteoarthritis, unspecified site M19.91 Unspecified asthma J45.909 HTN (hypertension) with goal to be determined I10 HLD (hyperlipidemia) E78.5 DVT prophylaxis Z29.9 Transaminitis R74.01
[2020-11-12] MEDS ORDERED: FUROSEMIDE 20 MG in SYRINGE 0 ML IV ONE (08:00)
[2020-11-12] MEDS: dexAMETHasone 6 MG in SYRINGE 0 ML IV SCH (08:02)
[2020-11-12] MEDS: FAMOTIDINE 20 MG in SYRINGE 3 ML IV SCH ×2 (08:02→20:11)
[2020-11-12] MEDS: ASPIRIN 81 MG ECTAB PO SCH (08:03)
[2020-11-12] MEDS: MULTI VIT W/MINERALS LIQUID 15 ML UDP NG SCH (08:03)
--- NOTE | 2020-11-12 08:03 | XRay Report ---
XR chest 1V portable CLINICAL HISTORY: Respiratory failure COMPARISON STUDY: 11/09/2020 FINDINGS: There is an endotracheal tube 4 cm above the mio. There is a right internal jugular cent ral venous catheter. There is a nasogastric tube which passes into the stomach. There are persistent bilateral pulmonary airspace opacities with perhaps minimal improvement compared the prior study. The re are no large effusions.[ IMPRESSION: Persistent bilateral pulmonary airspace opacities with perhaps minimal improvement. Satis factory positioning of the lines and tubes. ACT 112: Negative or not required by law. Electronically signed by: Taz Fair M.D. 11/12/2020 8:01 AM
[2020-11-12] MEDS: ENOXAPARIN 80 MG/0.8 ML SYR SQ SCH (12:18)
--- NOTE | 2020-11-12 13:53 | Critical Care Progress Note ---
Date of Service November 12, 2020 Assessment & Plan (1) Acute hypoxemic respiratory failure: Neurologic: Off propofol since 11/08/2020 evening, off Nimbex 11/08/2020 Continue with midazolam and fentanyl Monitor for delirium Pulmonary: VDRF with ARDS Secondary to COVID-19 pneumonia Continue with lung protective ventilation High PEEP, low tidal volume to keep Plateau < 30 with permissive hypercapnea if need be. Keep O2 saturation greater than 88% Patient was last proned on 09/08/2020, off paralysis 11/09/2020 Cardiovascular: Sinus pause -Usually when the patient is coughing. 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 EKG did not show any ST changes. Mild elevation of troponin nonsignificant -Cardiology has been consulted, no acute intervention from the perspective Elevated troponins --> likely secondary to type II PA. No ST changes. Monitor Gastrointestinal: Elevation of AST and ALT along with mild elevation in CPK Could be secondary to antibiotic as well as rhabdo given that he was prone and he is morbidly obese samson. Continue to monitor Renal: Monitor BUNs/creatinine CPK is a bit elevated this could be from proning and compression of the muscles from his weight. Would monitor. Infectious disease: Procalcitonin 1.99. Sputum Gram stain negative. Nasal MRSA negative, Rocephin last dose 11/11/2020 Follow-up culture --> normal mellissa Continue with antibiotics for superimposed bacterial infection COVID-19 pneumonia Continue with dexamethasone, last dose 11/14/2020 Remdesivir was not given to the patient as patient was 10 days since symptom onset. Hematologic: Elevated white count likely from steroids and possible bacterial infection. Hemoglobin stable. Endocrine: Monitoring glucose closely while on steroids. ICU hyperglycemia protocol CODE STATUS: Full code --Prophylaxis VTE: 0.5 mg/kg twice daily because of morbid obesity and COVID-19 GI: Pepcid Lines: Right IJ 11/06, right radial, intubation 11/06 Diet: On tube feeds Plan: In/out: Positive 288, urine output 2600 AB.42/50/64 on 40% and PEEP of 5 Patient is having good tidal volume and pressure support of 8005. Patient is following commands. We will do a trial of extubation today. Given the patient was difficult intubation. I was present bedside for any deterioration at the time of extubation. LFTs have been on the higher side. There is elevation of alk phos as well. Patient did have elevation of alk phos when he came to the hospital. If they continue to trend up right upper quadrant ultrasound can be thought of. Will continue with dopamine for the sinus pauses and bradycardia. He has had no sinus pauses since last 48 hours. Bradycardia is again multifactorial likely from the sedation midazolam/fentanyl as well as, cardiomyopathy. Once the patient is off sedation I think we should be able to get rid of dopamine possibly tomorrow. I will give a dose of Lasix today 20 mg to keep the patient negative balance. I have personally spent 48 minutes of critical care time in the direct management of this patient. This is a life/limb threatening event. This includes time spent evaluating patient, direct bedside care, chart review, placing orders, interpretation of diagnostic studies, discussion with consultants, patient, and family members, as well as other required patient management activities. This time is exclusive of all separately billable procedures, and teaching time and separate from and in addition to any other critical care service time. Thank you for allowing us to participate in the care of this patient. (2) COVID-19: (3) Multifocal pneumonia: (4) HTN (hypertension) with goal to be determined: (5) Morbid obesity due to excess calories: Admission and Anticipated Discharge Date Admission Date: November 04, 2020 Subjective Patient seen and examined at bedside. No acute distress, no adverse events overnight. Patient was RASS -1, following simple commands. Has been afebrile. Denies any chest pain, no headache, no belly pain. Still on dopamine, midazolam and fentanyl. Review of Systems Review of Systems: All systems reviewed & are unremarkable except as noted in Subjective and Unobtainable due to endotracheal tube Physical Exam Physical Exam: Constitutional: No acute distress HEENT: PERRLA, positive ETT Respiratory system: Decreased air entry bilaterally, no wheeze, no rhonchi, positive crackles bilaterally CVS: S1-S2 positive, no murmurs or gallops Abdomen: Soft, nontender, nondistended, positive bowel sounds x4, obese Extremities: +2 pulses bilaterally radialis/ dorsalis pedis, no cyanosis, no edema, tattoos all over the body Neuro: Positive corneal, positive gag, positive pupillary, RASS -1 Psych: Unable to assess G/U: Positive Hickey Skin: no rashes, warm and dry Lymphatic: no cervical or axillary lymphadenopathy Results & Data Results & Data ([facility]) Vital Signs (Past 12 Hours) Vital Signs Temp Pulse Resp BP Pulse Ox 11/12/20 11:32 66 22 96 11/12/20 10:00 37.3 C 63 126/77 94 11/12/20 09:41 61 22 92 11/12/20 09:30 37.3 C 65 135/82 90 11/12/20 09:01 37.3 C 67 135/81 91 11/12/20 08:30 37.4 C 57 L 155/89 H 91 11/12/20 08:00 37.5 C 52 L 122/74 92 11/12/20 07:37 50 L 23 91 11/12/20 07:30 37.5 C 59 L 126/77 92 11/12/20 07:00 37.5 C 47 L 123/67 92 11/12/20 04:48 48 L 22 92 11/12/20 04:30 37.4 C 48 L 124/68 92 11/12/20 04:00 37.4 C 47 L 124/72 92 11/12/20 03:30 37.4 C 46 L 128/70 92 11/12/20 03:00 37.4 C 47 L 126/67 92 11/12/20 02:30 37.4 C 48 L 131/69 92 11/12/20 05:54 11/12/20 05:54 Coding Level of Care Code Critical Care 1st 30-74 mins Diagnoses Acute hypoxemic respiratory failure J96.01 COVID-19 U07.1 Multifocal pneumonia J18.9 HTN (hypertension) with goal to be determined I10 Morbid obesity due to excess calories E66.01 Time Spent (min) 48
[2020-11-13] MEDS: ENOXAPARIN 80 MG/0.8 ML SYR SQ SCH ×2 (00:39→13:10)
[2020-11-13] MEDS: fentaNYL DRIP 1,250 MCG/250 ML BAG IV SCH (03:38)
[2020-11-13] MEDS: MIDAZOLAM HCL 125 MG/250 ML BAG IV SCH (03:39)
[2020-11-13] MEDS: DOPamine / D5W 400 MG/250 ML BAG IV SCH ×5 (06:04→10:09)
[2020-11-13 07:27] LABS: Eosinophils # (auto) 0.06 K/uL (0-0.5); Eosinophils % (auto) 0.5 %; Hematocrit (blood only) 44.3 % (42-52); Immature Granulocytes # (auto) 0.12 K/uL (0.00-0.02); Lymphocytes # (auto) 1.13 K/uL (1.2-3.4); Lymphocytes % (auto) 9.3 %; Mean Corpuscular Hemoglobin 32.1 pg (25-34); Mean Corpuscular Hgb Conc 33.9 g/dL (32-36); Mean Corpuscular Volume 94.7 fL (80-100); Mean Platelet Volume 10.8 fL (7.4-10.4); Monocytes # (auto) 1.38 K/uL (0.11-0.59); Monocytes % (auto) 11.3 %; Neutrophils # (auto) 9.47 K/uL (1.4-6.5); Neutrophils % (auto) 77.9 %; Platelet Count 384 K/uL (130-400); RDW Coefficient of Variation 14.1 % (11.5-14.5); RDW Standard Deviation 47.8 fL (36.4-46.3); Red Blood Count 4.68 M/uL (4.7-6.1); White Blood Count 12.16 K/uL (4.8-10.8)
[2020-11-13 08:05] LABS: BUN Creatinine Ratio 60.3 (10-20); Calcium 8.9 mg/dl (8.5-10.1); Creatinine Clr Calc Pharmacy 125.9 ml/min; Est GFR (African American) 117.2; Est GFR (Non-African American) 101.1; Magnesium 2.1 mg/dl (1.8-2.4); Phosphorus 3.2 mg/dl (2.5-4.9)
[2020-11-13] MEDS: FAMOTIDINE 20 MG in SYRINGE 3 ML IV SCH ×2 (08:57→20:42)
[2020-11-13] MEDS: dexAMETHasone 6 MG in SYRINGE 0 ML IV SCH (08:57)
[2020-11-13] MEDS ORDERED: FUROSEMIDE 40 MG in SYRINGE 0 ML IV ONE (09:44)
[2020-11-13] MEDS ORDERED: FUROSEMIDE 40 MG/4 ML VIAL IV ONE (10:00)
[2020-11-13] MEDS: ASPIRIN 81 MG ECTAB PO SCH (13:02)
[2020-11-13] MEDS: MULTI VIT W/MINERALS LIQUID 15 ML UDP NG SCH (13:03)
--- NOTE | 2020-11-13 13:04 | Critical Care Progress Note ---
Date of Service November 13, 2020 Assessment & Plan (1) Acute hypoxemic respiratory failure: Neurologic: Patient is extubated and off sedation currently. No issues with encephalopathy at this time. I am encouraging him to get out of the bed and into a chair position. He is at risk for critical illness neuromyopathy. Cardiovascular: We are weaning off the dopamine. He does have ongoing bradycardia. He had sinus pauses earlier during this hospitalization. Gastrointestinal: Continue to monitor LFTs. Denies any abdominal pain. LFT derangements likely related to Covid infection. Renal: Monitor BUNs/creatinine Infectious disease: Antibiotics have been discontinued as there is no obvious evidence of infection. Last procalcitonin checked on 11/08 was trending downwards. We will repeat a procalcitonin today. COVID-19 pneumonia Continue with dexamethasone, last dose 11/14/2020 Remdesivir was not given to the patient as patient was 10 days since symptom onset. Hematologic: Elevated white count likely from steroids and possible bacterial infection. Hemoglobin stable. Endocrine: Monitoring glucose closely while on steroids. ICU hyperglycemia protocol CODE STATUS: Full code --Prophylaxis VTE: 0.5 mg/kg twice daily because of morbid obesity and COVID-19 GI: Pepcid Lines: Right IJ 11/06, right radial, intubation 11/06 We will obtain a speech consult to evaluate swallowing. Start diet if speech therapy improves. Will downgrade from ICU status to tele status. I have personally spent 42 minutes of critical care time in the direct management of this patient. This is a life/limb threatening event. This includes time spent evaluating patient, direct bedside care, chart review, placing orders, interpretation of diagnostic studies, discussion with consultants, patient, and family members, as well as other required patient management activities. This time is exclusive of all separately billable procedures, and teaching time and separate from and in addition to any other critical care service time. Thank you for allowing us to participate in the care of this patient. (2) COVID-19: (3) Multifocal pneumonia: (4) HTN (hypertension) with goal to be determined: (5) Morbid obesity due to excess calories: Admission and Anticipated Discharge Date Admission Date: November 04, 2020 Subjective Patient was extubated on 11/12/2020. He is doing well on 50% high flow nasal cannula. He feels less short of breath today. He denies any chest pain. No nausea or vomiting. He is eager to try diet. Review of Systems Review of Systems: All systems reviewed & are unremarkable except as noted in HPI & below Physical Exam Constitutional: WD/WN, vitals as above Eyes: PERRL, conjunctivae normal, anicteric sclerae ENMT: external ear and nose normal, oropharynx normal Neck: + thick neck Respiratory: + labored breathing and + tachypneic Cardiovascular: RRR, no murmur, no edema Gastrointestinal (Abdomen): normal bowel sounds, soft, nontender, no hepa tosplenomegaly Musculoskeletal: no cyanosis or clubbing, extremities motor strength 5/5 Skin: no rashes, warm and dry Neurologic: PERRL, EOMI, accommodation nl, no face palsy, no dysarthria Psychiatric: A+Ox3, euthymic affect Results & Data Results & Data ([facility]) Vital Signs (Past 12 Hours) Vital Signs Temp Pulse Pulse Resp BP Pulse Ox 11/13/20 12:00 98.6 F 76 117/84 96 11/13/20 11:35 77 17 97 11/13/20 11:00 98.4 F 72 133/102 H 97 11/13/20 10:01 98.2 F 61 141/82 H 94 11/13/20 09:01 65 20 92 11/13/20 09:00 98.4 F 67 123/80 92 11/13/20 08:30 98.4 F 60 129/78 95 11/13/20 08:00 98.4 F 57 L 121/75 95 11/13/20 07:47 56 L 16 56 L 11/13/20 07:30 98.4 F 56 L 119/78 95 11/13/20 07:00 98.2 F 56 L 146/92 H 95 11/13/20 06:30 98.2 F 63 133/84 95 11/13/20 06:00 98.2 F 59 L 125/80 94 11/13/20 05:30 98.1 F 57 L 131/81 92 11/13/20 05:00 98.2 F 53 L 118/75 95 11/13/20 04:30 98.1 F 57 L 132/79 93 11/13/20 04:08 77 20 95 11/13/20 04:01 98.2 F 72 122/79 97 11/13/20 03:30 98.4 F 67 141/86 H 98 11/13/20 03:00 98.4 F 62 132/90 97 11/13/20 02:30 98.4 F 78 125/99 97 11/13/20 02:00 98.4 F 78 144/87 H 96 11/13/20 01:31 98.6 F 79 140/89 98 11/13/20 01:01 98.6 F 56 L 132/81 98 I reviewed the vital signs, labs and imaging Coding Level of Care Code Critical Care 1st 30-74 mins Diagnoses Acute hypoxemic respiratory failure J96.01 COVID-19 U07.1 Multifocal pneumonia J18.9 HTN (hypertension) with goal to be determined I10 Morbid obesity due to excess calories E66.01 Time Spent (min) 42
[2020-11-13] MEDS: POLYETHYLENE (MIRALAX) 17 GM PACK PO SCH (13:09)
--- NOTE | 2020-11-13 17:12 | Hospitalist Progress Note ---
Date of Service November 13, 2020 Assessment & Plan (1) COVID-19: Continue dexamethasone 6mg IV initiated 11/05 Elevated LFTs therefore remdesivir deferred. 9 days into illness at time of admission therefore convalescent plasma not ordered. 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 extubated 11/12 to Bipap (5) Multifocal pneumonia: treat COVID with dexamethasone completed azithromycin on ceftriaxone no fever, but low grade temp (6) Sepsis: Source - COVID-19 plus possible bacterial multifocal pneumonia. Lactate 2.1, on admission. NSS 1L bolus given in ER. Given hemodynamic stability will defer further IV fluids at this time. Cover for bacterial PNA with cefepime and azithromycin follow blood cultures, no growth, (7) Primary osteoarthritis, unspecified site: Continue celecoxib 200mg PO QAM (8) Unspecified asthma: Unclear diagnosis of this. Patient reports no previous PFTs. No wheezing on exam to suggest asthma exacerbation. (9) HTN (hypertension) with goal to be determined: Hold Lasix given current dehydrated/hypovolemic state. Monitor BP, low normal values (10) HLD (hyperlipidemia): Continue atorvastatin 10 mg p.o. every morning (11) DVT prophylaxis: Lovenox 0.5 mg/kg BID (due to increased BMI and COVID-19 diagnosis) (12) Transaminitis: actually all LFT tests are elevated but minorly, maybe to to severity of illness. slowly trending upward Admission and Anticipated Discharge Date Admission Date: November 04, 2020 Subjective Patient is much more agreeable to hostile and easier to work with today he is been tapered to nasal cannula oxygen is eating lunch downgraded from ICU status we will continue to watch him overnight and if he continues to be well on nasal cannula will likely transition him off of telemetry to non telemetry airborne isolation Review of Systems Review of Systems: Mild distress and fatigue no headache, blurry or double vision no speech or swallowing issues no chest pain, pressure or palpitations Still with some shortness of breath, nonproductive cough no abdominal pain, nausea or vomiting, diarrhea or constipation no dysuria, hematuria or frequency no focal joint pain or swelling no back pain, CVA tenderness or radicular pain no bruising, bleeding or rashes no focal signs of weakness or numbness or altered sensation no complaints of anxiety or depression.. Physical Exam Physical Exam: The patient appeared with mild respiratory distress and some confusion and weakness Vital signs as documented. Lungs are improving but continued rales at the bases Cardiac exam, Rhythm is regular.. No major sinus pauses seen Abdominal exam reveals normal bowel sounds, soft Extremities are nonedematous has some plethora to his lower extremities may be from shackles Neurologic exam is follows commands has some coordination issues which might be a sedation hangover from being intubated and sedated Skin is without bruises or rashes is a some dark-colored discoloration to his feet likely from [facility] but not gangrenous or cellulitis looking Results & Data Results & Data ([facility]) Vital Signs (Past 12 Hours) Vital Signs Temp Pulse Pulse Resp BP Pulse Ox 11/13/20 15:00 99.1 F 74 137/86 94 11/13/20 14:00 99.1 F 85 137/83 96 11/13/20 13:30 99.0 F 72 98 11/13/20 13:02 99.0 F 79 111/89 96 11/13/20 13:00 98.8 F 82 95 11/13/20 12:30 98.6 F 70 96 11/13/20 12:00 98.6 F 76 117/84 96 11/13/20 11:35 77 17 97 11/13/20 11:00 98.4 F 72 133/102 H 97 11/13/20 10:01 98.2 F 61 141/82 H 94 11/13/20 09:01 65 20 92 11/13/20 09:00 98.4 F 67 123/80 92 11/13/20 08:30 98.4 F 60 129/78 95 11/13/20 08:00 98.4 F 57 L 121/75 95 11/13/20 07:47 56 L 16 56 L 11/13/20 07:30 98.4 F 56 L 119/78 95 11/13/20 07:00 98.2 F 56 L 146/92 H 95 11/13/20 06:30 98.2 F 63 133/84 95 11/13/20 06:00 98.2 F 59 L 125/80 94 11/13/20 05:30 98.1 F 57 L 131/81 92 PG Care Time/CCT Total # of Minutes Spent Total Time Spent with Patient: Total time spent is greater than 50% in coordination of care (as documented) at patient's floor/unit and/or counseling patient: Coding Level of Care Code 23448 Subseq Hosp Care Lvl 3 Diagnoses COVID-19 U07.1 Bradycardia R00.1 Sinus pause I45.5 Acute respiratory failure with hypoxia J96.01 Multifocal pneumonia J18.9 Sepsis A41.9 Primary osteoarthritis, unspecified site M19.91 Unspecified asthma J45.909 HTN (hypertension) with goal to be determined I10 HLD (hyperlipidemia) E78.5 DVT prophylaxis Z29.9 Transaminitis R74.01
[2020-11-14] MEDS: ENOXAPARIN 80 MG/0.8 ML SYR SQ SCH ×3 (00:01→23:36)
[2020-11-14 07:05] LABS: Basophils # (auto) 0.01 K/uL (0-0.2); Basophils % (auto) 0.1 %; Eosinophils # (auto) 0.07 K/uL (0-0.5); Eosinophils % (auto) 0.6 %; Immature Granulocytes # (auto) 0.07 K/uL (0.00-0.02); Immature Granulocytes % (auto) 0.6 %; Lymphocytes # (auto) 1.02 K/uL (1.2-3.4); Lymphocytes % (auto) 8.9 %; Mean Corpuscular Hemoglobin 31.3 pg (25-34); Mean Corpuscular Hgb Conc 33.3 g/dL (32-36); Mean Platelet Volume 11.1 fL (7.4-10.4); Monocytes # (auto) 1.11 K/uL (0.11-0.59); Monocytes % (auto) 9.7 %; Neutrophils # (auto) 9.18 K/uL (1.4-6.5); Neutrophils % (auto) 80.1 %; Platelet Count 357 K/uL (130-400); RDW Coefficient of Variation 13.9 % (11.5-14.5); RDW Standard Deviation 46.9 fL (36.4-46.3); Red Blood Count 4.47 M/uL (4.7-6.1); White Blood Count 11.46 K/uL (4.8-10.8)
[2020-11-14 07:44] LABS: Albumin Level 2.6 gm/dl (3.4-5.0); BUN Creatinine Ratio 64.3 (10-20); Bilirubin Direct 0.6 mg/dl (0-0.2); Calcium 8.4 mg/dl (8.5-10.1); Creatinine Clr Calc Pharmacy 118.4 ml/min; Est GFR (African American) 114.2; Est GFR (Non-African American) 98.6; Magnesium 2.4 mg/dl (1.8-2.4); Potassium 3.9 mmol/L (3.5-5.1)
[2020-11-14 07:47] LABS: Albumin Globulin Ratio 0.6 (0.9-2); Bilirubin,Total 1.5 mg/dl (0.2-1); Globulin 4.5 gm/dl (2.5-4.0); Phosphorus 3.7 mg/dl (2.5-4.9); Total Protein 7.1 gm/dl (6.4-8.2)
[2020-11-14] MEDS: ATORVASTATIN 10 MG TAB PO SCH (08:23)
[2020-11-14] MEDS: POLYETHYLENE (MIRALAX) 17 GM PACK PO SCH (08:23)
[2020-11-14] MEDS: ASPIRIN 81 MG ECTAB PO SCH (08:23)
[2020-11-14] MEDS: MULTI VIT W/MINERALS LIQUID 15 ML UDP NG SCH (11:30)
[2020-11-14] MEDS: FAMOTIDINE 20 MG in SYRINGE 3 ML IV SCH (11:30)
--- NOTE | 2020-11-14 18:23 | Hospitalist Progress Note ---
Date of Service November 14, 2020 Assessment & Plan (1) COVID-19: Continue dexamethasone 6mg initiated 11/05 Elevated LFTs therefore remdesivir deferred. 9 days into illness at time of admission therefore convalescent plasma not ordered. 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 extubated 11/12 to NC (5) Multifocal pneumonia: treat COVID with dexamethasone completed azithromycin on ceftriaxone no fever, but low grade temp (6) Sepsis: Source - COVID-19 plus possible bacterial multifocal pneumonia. Lactate 2.1, on admission. NSS 1L bolus given in ER. Given hemodynamic stability will defer further IV fluids at this time. Cover for bacterial PNA with cefepime and azithromycin follow blood cultures, no growth, (7) Primary osteoarthritis, unspecified site: Continue celecoxib 200mg PO QAM (8) Unspecified asthma: Unclear diagnosis of this. Patient reports no previous PFTs. No wheezing on exam to suggest asthma exacerbation. (9) HTN (hypertension) with goal to be determined: Hold Lasix given current dehydrated/hypovolemic state. Monitor BP, low normal values (10) HLD (hyperlipidemia): Continue atorvastatin 10 mg p.o. every morning (11) DVT prophylaxis: Lovenox 0.5 mg/kg BID (due to increased BMI and COVID-19 diagnosis) (12) Transaminitis: actually all LFT tests are elevated but minorly, maybe to to severity of illness. slowly trending upward Admission and Anticipated Discharge Date Admission Date: November 04, 2020 Subjective Patient remains tapered to nasal cannula oxygen is eating lunch downgraded from PCU status to non telemetry airborne isolation Review of Systems Review of Systems: Mild distress and fatigue no headache, blurry or double vision no speech or swallowing issues no chest pain, pressure or palpitations Still with some shortness of breath, nonproductive cough no abdominal pain, nausea or vomiting, diarrhea or constipation no dysuria, hematuria or frequency no focal joint pain or swelling no back pain, CVA tenderness or radicular pain no bruising, bleeding or rashes no focal signs of weakness or numbness or altered sensation no complaints of anxiety or depression.. Physical Exam Physical Exam: The patient appeared with mild respiratory distress and some confusion and weakness Vital signs as documented. Lungs are improving but continued rales at the bases Cardiac exam, Rhythm is regular.. No major sinus pauses seen Abdominal exam reveals normal bowel sounds, soft Extremities are nonedematous has some plethora to his lower extremities may be from shackles Neurologic exam is follows commands has some coordination issues which might be a sedation hangover from being intubated and sedated Skin is without bruises or rashes is a some dark-colored discoloration to his feet likely from his restraint devices from the [facility] but not gangrenous or cellulitis looking Results & Data Results & Data ([facility]) Vital Signs (Past 12 Hours) Vital Signs Temp Pulse Pulse Resp BP BP Pulse Ox 11/14/20 17:37 98.8 F 67 145/86 H 94 11/14/20 17:00 99.0 F 59 L 11/14/20 16:00 98.6 F 68 11/14/20 11:12 97.7 F 68 18 127/84 96 11/14/20 08:00 56 L 11/14/20 07:37 98.2 F 61 18 118/85 97 PG Care Time/CCT Total # of Minutes Spent Total Time Spent with Patient: Total time spent is greater than 50% in coordination of care (as documented) at patient's floor/unit and/or counseling patient: Coding Level of Care Code 50548 Subseq Hosp Care Lvl 3 Diagnoses COVID-19 U07.1 Bradycardia R00.1 Sinus pause I45.5 Acute respiratory failure with hypoxia J96.01 Multifocal pneumonia J18.9 Sepsis A41.9 Primary osteoarthritis, unspecified site M19.91 Unspecified asthma J45.909 HTN (hypertension) with goal to be determined I10 HLD (hyperlipidemia) E78.5 DVT prophylaxis Z29.9 Transaminitis R74.01
--- NOTE | 2020-11-15 07:45 | XRay Report ---
XR chest 1V portable HISTORY: Respiratory failure. COMPARISON: Chest 11/12/2020. FINDINGS: Endotracheal tube and nasogastric tube is been removed. The heart is mildly enlarged. Bilat eral hazy airspace opacities and interstitial thickening persists. No pleural effusions. No pneumotho rax. The right endotracheal tube terminates at the SVC. IMPRESSION: 1. No significant change in the patchy bilateral airspace opacities consistent with a pneumonia. 2. Endotracheal tube and nasogastric tube have been removed. ACT 112: Negative or not required by law. Electronically signed by: Rolando Alvarez M.D. 11/15/2020 7:44 AM
[2020-11-15 08:25] LABS: Basophils # (auto) 0.01 K/uL (0-0.2); Basophils % (auto) 0.1 %; Eosinophils # (auto) 0.17 K/uL (0-0.5); Eosinophils % (auto) 1.3 %; Hematocrit (blood only) 39.9 % (42-52); Hemoglobin 13.3 g/dL (14.0-18.0); Immature Granulocytes # (auto) 0.09 K/uL (0.00-0.02); Immature Granulocytes % (auto) 0.7 %; Lymphocytes # (auto) 1.57 K/uL (1.2-3.4); Lymphocytes % (auto) 11.9 %; Mean Corpuscular Hgb Conc 33.3 g/dL (32-36); Mean Platelet Volume 11.4 fL (7.4-10.4); Monocytes # (auto) 1.14 K/uL (0.11-0.59); Monocytes % (auto) 8.6 %; Neutrophils % (auto) 77.4 %; Platelet Count 329 K/uL (130-400); RDW Coefficient of Variation 13.9 % (11.5-14.5); RDW Standard Deviation 46.5 fL (36.4-46.3); Red Blood Count 4.29 M/uL (4.7-6.1); White Blood Count 13.18 K/uL (4.8-10.8)
[2020-11-15] MEDS: ASPIRIN 81 MG ECTAB PO SCH (08:45)
[2020-11-15] MEDS: ATORVASTATIN 10 MG TAB PO SCH (08:45)
[2020-11-15] MEDS: POLYETHYLENE (MIRALAX) 17 GM PACK PO SCH (08:45)
[2020-11-15] MEDS: dexAMETHasone 1 MG TAB PO SCH (08:45)
[2020-11-15 08:49] LABS: Albumin Level 2.6 gm/dl (3.4-5.0); BUN Creatinine Ratio 58.7 (10-20); Calcium 8.2 mg/dl (8.5-10.1); Creatinine Clr Calc Pharmacy 129.2 ml/min; Est GFR (African American) 118.4; Est GFR (Non-African American) 102.2; Magnesium 2.2 mg/dl (1.8-2.4); Potassium 3.4 mmol/L (3.5-5.1)
[2020-11-15 08:56] LABS: Albumin Globulin Ratio 0.6 (0.9-2); Bilirubin,Total 1.6 mg/dl (0.2-1); Globulin 4.1 gm/dl (2.5-4.0); Phosphorus 2.9 mg/dl (2.5-4.9); Total Protein 6.7 gm/dl (6.4-8.2)
[2020-11-15] MEDS: POTASSIUM CHLORIDE CRTAB 20 MEQ TABCR PO SCH ×2 (10:16→21:38)
[2020-11-15] MEDS: ENOXAPARIN 80 MG/0.8 ML SYR SQ SCH ×2 (12:42→23:37)
--- NOTE | 2020-11-15 18:44 | Hospitalist Progress Note ---
Date of Service November 15, 2020 Assessment & Plan (1) COVID-19: Continue dexamethasone 6mg initiated 11/05 Elevated LFTs therefore remdesivir deferred. 9 days into illness at time of admission therefore convalescent plasma not ordered. 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 extubated 11/12 to NC (5) Multifocal pneumonia: treat COVID with dexamethasone completed azithromycin on ceftriaxone (6) Sepsis: Source - COVID-19 plus possible bacterial multifocal pneumonia. Lactate 2.1, on admission. NSS 1L bolus given in ER. Given hemodynamic stability will defer further IV fluids at this time. Cover for bacterial PNA with cefepime and azithromycin follow blood cultures, no growth, (7) Primary osteoarthritis, unspecified site: Continue celecoxib 200mg PO QAM (8) Unspecified asthma: Unclear diagnosis of this. Patient reports no previous PFTs. No wheezing on exam to suggest asthma exacerbation. (9) HTN (hypertension) with goal to be determined: Hold Lasix given current dehydrated/hypovolemic state. Monitor BP, low normal values (10) HLD (hyperlipidemia): Continue atorvastatin 10 mg p.o. every morning (11) DVT prophylaxis: Lovenox 0.5 mg/kg BID (due to increased BMI and COVID-19 diagnosis) (12) Transaminitis: actually all LFT tests are elevated but minorly, maybe to to severity of illness. slowly trending upward Admission and Anticipated Discharge Date Admission Date: November 04, 2020 Subjective Patient remains tapered to nasal cannula oxygen will have PT OT evaluation to improve his functional status and return to assisted on 11/16 Review of Systems Review of Systems: Mild distress and fatigue no headache, blurry or double vision no speech or swallowing issues no chest pain, pressure or palpitations Still with some shortness of breath, continues with nonproductive cough no abdominal pain, nausea or vomiting, diarrhea or constipation no dysuria, hematuria or frequency no focal joint pain or swelling no back pain, CVA tenderness or radicular pain no bruising, bleeding or rashes no focal signs of weakness or numbness or altered sensation no complaints of anxiety or depression.. Physical Exam Physical Exam: The patient appeared with mild respiratory distress and some confusion and weakness Vital signs as documented. Lungs are improving but continued rales at the bases Cardiac exam, Rhythm is regular.. No major sinus pauses seen Abdominal exam reveals normal bowel sounds, soft Extremities are nonedematous has some plethora to his lower extremities may be from shackles Neurologic exam is follows commands has some coordination issues which might be a sedation hangover from being intubated and sedated Skin is without bruises or rashes is a some dark-colored discoloration to his feet likely from his restraint devices from the assisted but not gangrenous or cellulitis looking Results & Data Results & Data ([facility]) Vital Signs (Past 12 Hours) Vital Signs Temp Pulse Resp BP Pulse Ox Pulse Ox Pulse Ox 11/15/20 15:59 83 18 93 11/15/20 14:12 98.2 F 73 18 139/84 92 11/15/20 11:09 97 11/15/20 09:42 96 88 L 11/15/20 09:08 96 11/15/20 08:43 73 86 L 11/15/20 07:15 98.2 F 62 18 121/80 100 PG Care Time/CCT Total # of Minutes Spent Total Time Spent with Patient: Total time spent is greater than 50% in coordination of care (as documented) at patient's floor/unit and/or counseling patient: Coding Level of Care Code 90049 Subseq Hosp Care Lvl 2 Diagnoses COVID-19 U07.1 Bradycardia R00.1 Sinus pause I45.5 Acute respiratory failure with hypoxia J96.01 Multifocal pneumonia J18.9 Sepsis A41.9 Primary osteoarthritis, unspecified site M19.91 Unspecified asthma J45.909 HTN (hypertension) with goal to be determined I10 HLD (hyperlipidemia) E78.5 DVT prophylaxis Z29.9 Transaminitis R74.01
[2020-11-15] MEDS: QUEtiapine FUMARATE 25 MG TABLET PO SCH (20:55)
[2020-11-16 06:05] LABS: Eosinophils # (auto) 0.02 K/uL (0-0.5); Eosinophils % (auto) 0.2 %; Hematocrit (blood only) 36.1 % (42-52); Hemoglobin 12.1 g/dL (14.0-18.0); Immature Granulocytes # (auto) 0.04 K/uL (0.00-0.02); Immature Granulocytes % (auto) 0.3 %; Lymphocytes # (auto) 1.11 K/uL (1.2-3.4); Lymphocytes % (auto) 8.6 %; Mean Corpuscular Hemoglobin 30.7 pg (25-34); Mean Corpuscular Hgb Conc 33.5 g/dL (32-36); Mean Corpuscular Volume 91.6 fL (80-100); Mean Platelet Volume 11.5 fL (7.4-10.4); Monocytes # (auto) 1.14 K/uL (0.11-0.59); Monocytes % (auto) 8.9 %; Neutrophils # (auto) 10.55 K/uL (1.4-6.5); Platelet Count 350 K/uL (130-400); RDW Coefficient of Variation 13.4 % (11.5-14.5); RDW Standard Deviation 44.3 fL (36.4-46.3); Red Blood Count 3.94 M/uL (4.7-6.1); White Blood Count 12.86 K/uL (4.8-10.8)
[2020-11-16 06:32] LABS: Albumin Level 2.5 gm/dl (3.4-5.0); Calcium 8.1 mg/dl (8.5-10.1); Creatinine Clr Calc Pharmacy 144.2 ml/min; Est GFR (African American) 123.9; Est GFR (Non-African American) 106.9; Magnesium 2.1 mg/dl (1.8-2.4); Potassium 3.7 mmol/L (3.5-5.1)
[2020-11-16 06:36] LABS: Albumin Globulin Ratio 0.7 (0.9-2); Bilirubin,Total 1.4 mg/dl (0.2-1); Globulin 3.8 gm/dl (2.5-4.0); Phosphorus 2.2 mg/dl (2.5-4.9); Total Protein 6.3 gm/dl (6.4-8.2)
[2020-11-16] MEDS: POTASSIUM CHLORIDE CRTAB 20 MEQ TABCR PO SCH (08:48)
[2020-11-16] MEDS: dexAMETHasone 1 MG TAB PO SCH (08:48)
[2020-11-16] MEDS: ATORVASTATIN 10 MG TAB PO SCH (08:48)
[2020-11-16] MEDS: POLYETHYLENE (MIRALAX) 17 GM PACK PO SCH (08:49)
[2020-11-16] MEDS: ASPIRIN 81 MG ECTAB PO SCH (08:49)
[2020-11-16] MEDS: ENOXAPARIN 80 MG/0.8 ML SYR SQ SCH ×2 (12:54→23:20)
--- NOTE | 2020-11-16 17:01 | Discharge Summary ---
Date of Service November 16, 2020 Admission HPI Per Admitting Provider Mars Chawla is a 55 year old male from [facility] with known COVID-19 pneumonia who presents to the ER with a 9-day history of shortness of breath, chills, nasal congestion, cough, fatigue, myalgias, diarrhea. He was tested for COVID-19 on on 10/30, subsequently positive. Since then has been having increased oxygen requirements. He reports being in [facility] for the last 3 days and was started on a Medrol Dosepak and azithromycin (due to finish 11/05) at that time, although records from the snf are incomplete (last filled in 11/02). He denies any fever, loss of taste or smell, headache, sore throat, nausea/vomiting, chest or abdominal pain. In the ER chest x-ray concerning for diffuse/multifocal airspace consolidation seen throughout both lungs. He was significantly hypoxic requiring 80% FiO2 to maintain his O2 sats around 90%. He was referred to medicine for admission and ongoing management for Covid 19, multifocal pneumonia, hypoxia. Principal Diagnosis Acute respiratory failure secondary to pneumonia secondary to Covid Discharge Exam The patient appeared well nourished and normally developed. Vital signs as documented. Head exam is normocephalic atraumatic no scleral icterus Neck is without JVD, thyromegaly, or carotid bruits. Lungs are coarse bilaterally but with good air movement Cardiac exam, Rhythm is regular.. No murmurs, rubs or gallops. Abdominal exam reveals normal bowel sounds, soft non tender, no masses Extremities are mildly edematous and both pedal pulses are present Neurologic exam is alert and oriented, no focal loss of strength or sensation Discharge Data Allergies Allergy/AdvReac Type Severity Reaction Status Date / Time shellfish derived Allergy Unknown Unknown Unverified 11/04/20 09:56 wool Allergy Unknown Unknown Unverified 11/04/20 09:56 Consultations 11/04/20 11:24 ED Decision to Admit Stat 11/05/20 09:15 Consult Crane Helper Routine 11/08/20 18:09 Consult Cardiology Stat Hospital Course (1) COVID-19: Continue dexamethasone 6mg initiated 11/05 Elevated LFTs therefore remdesivir deferred. 9 days into illness at time of admission therefore convalescent plasma not ordered. 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 extubated 11/12 to NC now transitioned to room air will return to snf (5) Multifocal pneumonia: treat COVID with dexamethasone completed azithromycin on ceftriaxone (6) Sepsis: Source - COVID-19 plus possible bacterial multifocal pneumonia. Lactate 2.1, on admission. NSS 1L bolus given in ER. Given hemodynamic stability will defer further IV fluids at this time. Cover for bacterial PNA with cefepime and azithromycin follow blood cultures, no growth, (7) Primary osteoarthritis, unspecified site: Continue celecoxib 200mg PO QAM (8) Unspecified asthma: Unclear diagnosis of this. Patient reports no previous PFTs. No wheezing on exam to suggest asthma exacerbation. (9) HTN (hypertension) with goal to be determined: Hold Lasix given current dehydrated/hypovolemic state. Monitor BP, low normal values (10) HLD (hyperlipidemia): Continue atorvastatin 10 mg p.o. every morning (11) Transaminitis: actually all LFT tests are elevated but minorly, maybe to to severity of illness. will need follow up and consider referral for hep c clinic with ID or GI Total Time Total Time Spent Total Time Spent (In Minutes): It required greater than 30 minutes to prepare this patient for discharge Discharge Plan Discharge Items [facility] Reason For Visit: acute resp failure w/hypoxia Discharge Diagnosis: covid pneumonia with acute respiratory failure requiring ventilation Activity: Resume your previous activity Non-emergency contact: Primary Care Provider Call non-emergency contact if: you have any medication questions and your symptoms worsen Follow-up/Referrals: Kim HERNÁNDEZ [Primary Care Provider] - Diet: Regular Addtl Attending Provider Instructions: Since you are considered to have severe covid as you required mechanical ventilation, it would be recommended that you quarantine yourself for 20 days fr om the onset of your symptoms. you have been in the hospital for 12 days. that would mean distancing yourself and wearing a mask around others. Coronavirus disease 2019 (COVID-19) is a virus that causes a respiratory illness. It is caused by a coronavirus called 2019 novel coronavirus (2019- nCoV). There are many types of coronavirus. Coronaviruses are a very common cause of bronchitis. They may sometimes cause lung infection(pneumonia). Symptoms can range from mild to severe respiratory illness. These viruses are also foundin some animals. COVID-19 was first found in people in [facility], in late 2018. In 2020, several cases of COVID-19 have been confirmed in the [place] Public health officials are working to find the source. How the virus spreads is not yet fully known. It may be spread through droplets of fluid that a person coughs or sneezes into the air. It may be spread if you touch a surface with virus on it, such as a handle or object, and then touch your mouth. What are the symptoms of COVID-19? Some people have no symptoms or mild symptoms. Symptoms may appear 2 to 14 days after contact with the virus. Symptoms can include: Fever Coughing Trouble breathing What are possible complications from COVID-19? In many cases, this virus can cause infection (pneumonia) in both lungs. In some cases, this can cause . How is COVID-19 diagnosed? Your healthcare provider will ask about your symptoms. He or she will also ask about your recent travel and contact with sick people. Testing for the virus is only done through the CDC. If yourhealthcare provider thinks you may have COVID- 19, he or she will work with your local health department and the CDC on testing. Follow all instructions from your healthcare provider. COVID-19 is diagnosed by: Nasal and throat swab. A cotton-tipped swab is wiped inside your nose or throat. This is done to check for viruses in your nasal mucus. Sputum culture. A small sample of mucus coughed from your lungs (sputum) is collected if you have a cough. It is checked for the virus. How was COVID-19 treated? There is currently no medicine to treat the virus. Treatment is done to help your body while it fights the virus. This is known as supportive care. Supportive care may include: Pain medicine. These include acetaminophen and ibuprofen. They are used to help ease pain and reduce fever. Bed rest. This helps your body fight the illness. For severe illness, you may need to stay in the hospital. Care during severe illness may include: IV (intravenous) fluids.These are given through a vein to help keep your body hydrated. Oxygen. Supplemental oxygen or ventilation with a breathing machine (ventilator) may be given. This is done to keep enough oxygen in your body. If you have been diagnosed with COVID-19 Follow all instructions from your healthcare provider. Dont leave your home, except to get medical care. Call your healthcare providers office before going. They can prepare and give you instructions. This will help prevent the virus from spreading. Dont go to work, school, or public areas. Dont use public transport or taxis. Stay away from other people in your home. Have them wear face masks around you. Dont share household items or food. Wear a face mask if you can. This includes at home or in a medical facility. Cover your face with a tissue when you cough or sneeze. Throw the tissue away. Wash your hands. Wash your hands often. Caregivers should: Follow all instructions from healthcare staff. Wear a face mask and protective clothing as advised. Wash hands often. Keep track of the sick persons symptoms. Clean surfaces, fabrics, and laundry thoroughly. Keep other people away from the sick person. When to call your healthcare provider Call your healthcare provider: If youve recently traveled and have symptoms If you have been diagnosed with COVID-19 and your symptoms are worse To learn more To find out more about COVID-19, visit the CDC website at www.cdc.gov/coronavirus/2019-ncov/index.html. [employer]. [address] [place] [address], [place] [address]. All rights reserved. This information is not intended as a substitute for professional medical care. Always follow your healthcare professional's instructions. This information has been adapted from [employer] Pending Studies at Discharge: No Stand-Alone Forms: My [facility] [place] [employer] Skilled Items Patient informed of condition?: Yes Discharge Level of Care: Other Communicable Disease: Yes Discharge Prognosis: Stable Lines: None Urinary Catheter: No Medications and DC Order Prescriptions: Continued celecoxib 200 mg Capsule 200 mg PO QAM RF: 0 atorvastatin 10 mg Tablet 10 mg PO QAM RF: 0 azithromycin 250 mg Tablet 250 mg PO DAILY RF: 0 aspirin 81 mg Tablet,Delayed Release (Dr/Ec) 81 mg PO QAM RF: 0 furosemide [Lasix] 20 mg Tablet 20 mg PO DAILY RF: 0 levalbuterol tartrate [Xopenex HFA] 45 mcg/actuation Hfa Aerosol Inhaler 2 inh INHALATION Q6H PRN (Reason: Shortness Of Breath) RF: 0 acetaminophen [Acetaminophen Extra Strength] 500 mg Tablet 500 mg PO TID PRN (Reason: Pain) RF: 0 ondansetron 4 mg Tablet,Disintegrating 4 mg PO DAILY PRN (Reason: Nausea Vomiting) RF: 0 Discontinued methylprednisolone [Medrol (Sumit)] 4 mg Tablets,Dose Pack 4 mg PO UD RF: 0 guaifenesin [Mucosa] 400 mg Tablet 400 mg PO TID PRN (Reason: Mucus Relief) RF: 0 Discharge Orders: Discharge Order (Routine); Ordered 11/16/20 Ordered By: Eric Tan Admission Data Admit Date/Time: 11/04/20 11:26 Attending Provider: Eric Tan Admit Provider: Jaguar Flores Primary Care Provider: Kim HERNÁNDEZ Other Providers: Jaguar Flores ; Juan Mosquera ; Ross Turcios Coding Level of Care Code D/C Day Management >30 mins Diagnoses COVID-19 U07.1 Bradycardia R00.1 Sinus pause I45.5 Acute respiratory failure with hypoxia J96.01 Multifocal pneumonia J18.9 Sepsis A41.9 Primary osteoarthritis, unspecified site M19.91 Unspecified asthma J45.909 HTN (hypertension) with goal to be determined I10 HLD (hyperlipidemia) E78.5 Transaminitis R74.01
[2020-11-16] MEDS: QUEtiapine FUMARATE 25 MG TABLET PO SCH (20:10)
[2020-11-17] MEDS: dexAMETHasone 1 MG TAB PO SCH (09:08)
[2020-11-17] MEDS: ASPIRIN 81 MG ECTAB PO SCH (09:09)
[2020-11-17] MEDS: ATORVASTATIN 10 MG TAB PO SCH (09:10)
[2020-11-17] MEDS: POLYETHYLENE (MIRALAX) 17 GM PACK PO SCH (09:17)
--- NOTE | 2020-11-17 14:27 | Discharge Summary ---
Date of Service November 17, 2020 Admission HPI Per Admitting Provider Mars Chawla is a 55 year old male from [facility] with known COVID-19 pneumonia who presents to the ER with a 9-day history of shortness of breath, chills, nasal congestion, cough, fatigue, myalgias, diarrhea. He was tested for COVID-19 on on 10/30, subsequently positive. Since then has been having increased oxygen requirements. He reports being in [facility] for the last 3 days and was started on a Medrol Dosepak and azithromycin (due to finish 11/05) at that time, although records from the residential are incomplete (last filled in 11/02). He denies any fever, loss of taste or smell, headache, sore throat, n ausea/vomiting, chest or abdominal pain. In the ER chest x-ray concerning for diffuse/multifocal airspace consolidation seen throughout both lungs. He was significantly hypoxic requiring 80% FiO2 to maintain his O2 sats around 90%. He was referred to medicine for admission and ongoing management for Covid 19, multifocal pneumonia, hypoxia. Principal Diagnosis pneumonia covid Discharge Exam The patient appeared well Vital signs as documented. Lungs are clear to auscultation and appear unlabored Cardiac exam, Rhythm is regular.. No murmurs, rubs or gallops. Abdominal exam reveals normal bowel sounds, soft non tender, no masses Extremities are nonedematous and both pedal pulses are normal. Neurologic exam is alert and oriented, no focal loss of strength or sensation Skin is without bruises or rashes Psychologically is without concerns for anxiety or depression. Discharge Data Allergies Allergy/AdvReac Type Severity Reaction Status Date / Time shellfish derived Allergy Unknown Unknown Unverified 11/04/20 09:56 wool Allergy Unknown Unknown Unverified 11/04/20 09:56 Consultations 11/04/20 11:24 ED Decision to Admit Stat 11/05/20 09:15 Consult [employer] Routine 11/08/20 18:09 Consult Cardiology Stat Hospital Course (1) COVID-19: Continue dexamethasone 6mg initiated 11/05 Elevated LFTs therefore remdesivir deferred. 9 days into illness at time of admission therefore convalescent plasma not ordered. 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 extubated 11/12 to NC now transitioned to room air will return to residential (5) Multifocal pneumonia: treat COVID with dexamethasone completed azithromycin on ceftriaxone (6) Sepsis: Source - COVID-19 plus possible bacterial multifocal pneumonia. Lactate 2.1, on admission. NSS 1L bolus given in ER. Given hemodynamic stability will defer further IV fluids at this time. Cover for bacterial PNA with cefepime and azithromycin follow blood cultures, no growth, (7) Primary osteoarthritis, unspecified site: Continue celecoxib 200mg PO QAM (8) Unspecified asthma: Unclear diagnosis of this. Patient reports no previous PFTs. No wheezing on exam to suggest asthma exacerbation. (9) HTN (hypertension) with goal to be determined: Hold Lasix given current dehydrated/hypovolemic state. Monitor BP, low normal values (10) HLD (hyperlipidemia): Continue atorvastatin 10 mg p.o. every morning (11) Transaminitis: actually all LFT tests are elevated but minorly, maybe to to severity of illness. will need follow up and consider referral for hep c clinic with ID or GI Total Time Total Time Spent Total Time Spent (In Minutes): It required greater than 30 minutes to prepare this patient for discharge Discharge Plan Discharge Items [facility] Reason For Visit: acute resp failure w/hypoxia Discharge Diagnosis: covid pneumonia with acute respiratory failure requiring ventilation Activity: Resume your previous activity Non-emergency contact: Primary Care Provider Call non-emergency contact if: you have any medication questions and your symptoms worsen Follow-up/Referrals: Kim HERNÁNDEZ [Primary Care Provider] - Diet: Regular Addtl Attending Provider Instructions: Since you are considered to have severe covid as you required mechanical ventilation, it would be recommended that you quarantine yourself for 20 days from the onset of your symptoms. you have been in the hospital for 12 days. that would mean distancing yourself and wearing a mask around others. Coronavirus disease 2019 (COVID-19) is a virus that causes a respiratory illness. It is caused by a coronavirus called 2019 novel coronavirus (2019- nCoV). There are many types of coronavirus. Coronaviruses are a very common cause of bronchitis. They may sometimes cause lung infection(pneumonia). Symptoms can range from mild to severe respiratory illness. These viruses are also foundin some animals. COVID-19 was first found in people in [facility], in late 2018. In 2020, several cases of COVID-19 have been confirmed in the [place] Public health officials are working to find the source. How the virus spreads is not yet fully known. It may be spread through droplets of fluid that a person coughs or sneezes into the air. It may be spread if you touch a surface with virus on it, such as a handle or object, and then touch your mouth. What are the symptoms of COVID-19? Some people have no symptoms or mild symptoms. Symptoms may appear 2 to 14 days after contact with the virus. Symptoms can include: Fever Coughing Trouble breathing What are possible complications from COVID-19? In many cases, this virus can cause infection (pneumonia) in both lungs. In some cases, this can cause . How is COVID-19 diagnosed? Your healthcare provider will ask about your symptoms. He or she will also ask about your recent travel and contact with sick people. Testing for the virus is only done through the CDC. If yourhealthcare provider thinks you may have COVID- 19, he or she will work with your local health department and the CDC on testing. Follow all instructions from your healthcare provider. COVID-19 is diagnosed by: Nasal and throat swab. A cotton-tipped swab is wiped inside your nose or throat. This is done to check for viruses in your nasal mucus. Sputum culture. A small sample of mucus coughed from your lungs (sputum) is collected if you have a cough. It is checked for the virus. How was COVID-19 treated? There is currently no medicine to treat the virus. Treatment is done to help your body while it fights the virus. This is known as supportive care. Supportive care may include: Pain medicine. These include acetaminophen and ibuprofen. They are used to help ease pain and reduce fever. Bed rest. This helps your body fight the illness. For severe illness, you may need to stay in the hospital. Care during severe illness may include: IV (intravenous) fluids.These are given through a vein to help keep your body hydrated. Oxygen. Supplemental oxygen or ventilation with a breathing machine (ventilator) may be given. This is done to keep enough oxygen in your body. If you have been diagnosed with COVID-19 Follow all instructions from your healthcare provider. Dont leave your home, except to get medical care. Call your healthcare providers office before going. They can prepare and give you instructions. This will help prevent the virus from spreading. Dont go to work, school, or public areas. Dont use public transport or taxis. Stay away from other people in your home. Have them wear face masks around you. Dont share household items or food. Wear a face mask if you can. This includes at home or in a medical facility. Cover your face with a tissue when you cough or sneeze. Throw the tissue away. Wash your hands. Wash your hands often. Caregivers should: Follow all instructions from healthcare staff. Wear a face mask and protective clothing as advised. Wash hands often. Keep track of the sick persons symptoms. Clean surfaces, fabrics, and laundry thoroughly. Keep other people away from the sick person. When to call your healthcare provider Call your healthcare provider: If youve recently traveled and have symptoms If you have been diagnosed with COVID-19 and your symptoms are worse To learn more To find out more about COVID-19, visit the CDC website at www.cdc.gov/coronavirus/2019-ncov/index.html. [employer]. [address] [place] [address]. All rights reserved. This information is not intended as a substitute for professional medical care. Always follow your healthcare professional's instructions. This information has been adapted from [employer] Pending Studies at Discharge: No Stand-Alone Forms: My [facility] Skilled Items Patient informed of condition?: Yes Discharge Level of Care: Other Communicable Disease: Yes Discharge Prognosis: Stable Lines: None Urinary Catheter: No Medications and DC Order Prescriptions: Continued celecoxib 200 mg Capsule 200 mg PO QAM RF: 0 atorvastatin 10 mg Tablet 10 mg PO QAM RF: 0 aspirin 81 mg Tablet,Delayed Release (Dr/Ec) 81 mg PO QAM RF: 0 furosemide [Lasix] 20 mg Tablet 20 mg PO DAILY RF: 0 levalbuterol tartrate [Xopenex HFA] 45 mcg/actuation Hfa Aerosol Inhaler 2 inh INHALATION Q6H PRN (Reason: Shortness Of Breath) RF: 0 acetaminophen [Acetaminophen Extra Strength] 500 mg Tablet 500 mg PO TID PRN (Reason: Pain) RF: 0 ondansetron 4 mg Tablet,Disintegrating 4 mg PO DAILY PRN (Reason: Nausea Vomiting) RF: 0 azithromycin 250 mg Tablet 250 mg PO DAILY Qty: 3 RF: 0 Discontinued methylprednisolone [Medrol (Sumit)] 4 mg Tablets,Dose Pack 4 mg PO UD RF: 0 guaifenesin [Mucosa] 400 mg Tablet 400 mg PO TID PRN (Reason: Mucus Relief) RF: 0 Discharge Orders: Discharge Order (Routine); Ordered 11/17/20 Ordered By: Eric Tan Admission Data Admit Date/Time: 11/04/20 11:26 Attending Provider: Eric Tan Admit Provider: Jaguar Flores Primary Care Provider: Kim HERNÁNDEZ Other Providers: Jaguar Flores ; Juan Mosquera ; Ross Turcios Other Interventions: Discharge Summary Assessment (RN) Last Done: 11/17/20 13:55 Coding Level of Care Code D/C Day Management >30 mins Diagnoses COVID-19 U07.1 Bradycardia R00.1 Sinus pause I45.5 Acute respiratory failure with hypoxia J96.01 Multifocal pneumonia J18.9 Sepsis A41.9 Primary osteoarthritis, unspecified site M19.91 Unspecified asthma J45.909 HTN (hypertension) with goal to be determined I10 HLD (hyperlipidemia) E78.5 Transaminitis R74.01
== END 2020-11-17 15:03 | DRG 870 ==
LOC: ED 09:22 → SUATTDRO 11:26 → EDINP 11:42 → SUATTDRO 11:42 → 2E 12:45 → 3E 11-14 18:20